=== PATIENT | male | born 1935 | race Caucasian/White ===

== ENCOUNTER → 2019-12-13 09:56 | Outpatient (POV) | payer MEDICARE, SELFPAY | PROVIDERS: Visit Provider Audiologist | DX: Z00.00 Encounter for general adult medical examination without abnormal findings (principal) ==

== ENCOUNTER 2020-05-10 13:07 | Emergency (ER) | payer MEDICARE, SELFPAY ==
[2020-05-10 13:32] VITALS: BP 132/73; PULSE 85; RESP 19; TEMP 36.8; O2SAT 97; BMI 24.1
--- NOTE | 2020-05-10 14:02 | HMH.EDUTC ---
[facility] [place] Clinical Impression: Strep throat, Encounter for laboratory testing for COVID-19 virus Disposition: Home, Self-Care Condition on Discharge: Good Instructions: Sore Throat, DI for Strep Throat, DI for Headache, Preventing the Spread of Coronavirus Discharge Instructions Additional Instructions: *Monitor Temp, Over the counter Motrin or Tylenol as directed/as needed Tylenol every 4 hours and Motrin every 6 hours (as long as your family doctor has told you that you can take it) for fever or pain. and straight to ER if unable to lower temp less than 101.0 after medication given *Warm salt water gargles may help to soothe the throat *Throat Lozenges *Warm fluids like tea with honey may help to soothe the throat *Sleep elevated *Humidifier/Vaporizer Your throat swab was sent for culture. Those results are typically sent to your primary care. Be sure to follow up in 2-3 days with your family doctor/primary care physician if no improvement so they can review those result and treat if necessary. If you don?t have a primary care doctor, I recommend you get one but in the mean time, you will have to return to a walk in clinic Follow up IMMEDIATELY for new or worsening symptoms or no Noticeable improvement over the next 48-72 hours. 911 for difficulty breathing or swallowing You was tested for today for COVID19 your test result should be back tomorrow or Tuesday, you may call back on Tuesday to see if your test results are back and the result You was given a handout with instructions for Self Quarantine and Self isolation for while you wait on test results and what to do if they are positive Prescriptions: Amoxicillin [Amoxicillin 500mg Cap] 500 mg PO BID 10 Days #20 cap Transmission Status: Received by [facility] # Fluticasone Propionate [Flonase 50mcg nasal spray 16gm] 1 spr NS DAILY #1 bottle Transmission Status: Received by [facility] # Referrals: Bk Jarvis [Primary Care Provider] - As needed Time of Disposition: 14:11 Medical Decision Making - Ranjit Inquiry Pt receiving controlled substance: No Ranjit was queried for this patient: No Vital Signs: 05/10/20 13:32 Temperature 98.3 F Temperature Source Oral Pulse Rate [Radial] 85 Respiratory Rate 19 Blood Pressure [Right Arm] 132/73 Blood Pressure Mean [Right Arm] 92 Blood Pressure Source [Right Arm] Automatic Cuff Blood Pressure Position [Right Arm] Sitting 02 Sat by Pulse Oximetry 97 Oxygen Delivery Method Room Air - Lab Data Lab results reviewed: Yes: I reviewed the patient's lab results. Medical Decision Narrative: Patient denies SOA, denies abdominal pain Denies diarrhea since Patient rapid strep positive result discussed treatment and patient advised that he has taken amoxicillin in the past without complications or reactions Patient advised to call back to [facility] for his COVID test results and follow up with PCP if no improvement or immediately to ER if any worsening of symptoms Patient verbalized understanding [facility] [place] - General Stated complaint: fever chills Diarrhea,abd pain,weakness Time Seen by Provider: 05/10/20 14:02 Mode of Arrival: Ambulatory Source of Information: Patient Limitations: No Limitations Description of Symptoms (Recalled from Triage Doc. by RN): BODY ACHES, CHILLS, NAUSEA, AND DIARRHEA SINCE TUESDAY HEENT Symptoms (Recalled from RN notes): No Resp Symptoms (Recalled from RN notes): No Skin Symptoms (Recalled from RN notes): No MS Symptoms (Recalled from RN notes): No Functional Status (Recalled from RN notes): WNL - History of Present Illness Provider Complaint: Patient state that he started feeling bad on when he woke up and had several eppisodes of diarrhea and feeling achy all over States that diarrhea stopped on but ever since he has felt like he may have the flu States that he has been having low grade fever, sore throat, headache and body aches State
[2020-05-10 14:20] VITALS: BP 132/73; PULSE 85; RESP 19; TEMP 36.8; O2SAT 97
[2020-05-10 14:26] LABS: UTC Strep Screen (Rapid) Positive (Negative)
[2020-05-10 14:26] LABS: UTC Influenza A Antigen Negative (Negative); UTC Influenza B Antigen Negative (Negative)
[2020-05-11 08:38] LABS: Covid-19 Nasal PCR Sendout UK Not Detected
== END 2020-05-10 14:21 | disposition home or self-care (01) ==
PROVIDERS: Emergency Provider Nurse Practitioner; PCP Internal Medicine
DX: J02.0 Streptococcal pharyngitis (principal); Z20.828 Contact with and (suspected) exposure to other viral communicable diseases
CPT/HCPCS: G0463; 87804; 87880; 99202; U0003

== ENCOUNTER → 2021-01-22 10:27 | Outpatient (POV) | payer MEDICARE, SELFPAY | PROVIDERS: Visit Provider Audiologist | DX: Z00.00 Encounter for general adult medical examination without abnormal findings (principal) ==

== ENCOUNTER 2024-12-20 09:48 | Outpatient (CLI) | payer MEDICARE, SELFPAY ==
--- NOTE | 2024-12-20 09:51 | XR_ITS ---
FINAL REPORT TECHNIQUE: Chest PA & Lateral CLINICAL HISTORY: SOB COMPARISON: None FINDINGS: 2 views of the chest were performed. The lungs are hyperinflated. Surgical clip is noted in the upper left hemithorax. The heart size is normal. The mediastinum is within normal limits. There is no acute cardiopulmonary process. There are no pleural effusions. There is no pneumothorax. The bony thorax appears intact. IMPRESSION: No acute cardiopulmonary process. Reviewed, Interpreted and Dictated by Dirk Smith MD Transcribed by Alie Crandall Authenticated and [facility]
--- NOTE | 2024-12-20 10:55 | PC.NURSE ---
Pt unable to perform PFT due to unable to follow commands and coughing.
== END 2024-12-20 23:59 | disposition home or self-care (01) ==
LOC: RT 09:49
PROVIDERS: PCP Internal Medicine; Visit Provider Internal Medicine Pulmonary Disease
DX: J44.9 Chronic obstructive pulmonary disease, unspecified (principal); R94.2 Abnormal results of pulmonary function studies
CPT/HCPCS: 71046; 94618

== ENCOUNTER 2025-03-21 16:34 | Inpatient (IN) | payer MEDICARE, SELFPAY ==
[2025-03-21] VITALS (26 sets, daily range): BP systolic 85–123; BP diastolic 38–59; PULSE 62–103; RESP 14–39; TEMP 36.6–37.2; O2SAT 82–97; BMI 20.2
--- NOTE | 2025-03-21 16:44 | ECG_ITS ---
APPROVED REPORT Exam: Resting ECG HR:101 bpm ECG Measurements Heart Rate 101 AXES SC 162 P 75 QRSd 82 QRS 78 QT 317 T 79 QTc 375 Conclusion SINUS TACHYCARDIA WITH FREQUENT VENTRICULAR PREMATURE COMPLEXES ABNORMAL RHYTHM ECG UNCONFIRMED REPORT Sinus tachycardia. No ST elevation or depression. QTc 375 Electronically signed by : OWEN BAZZI, 03/21/2025 21:02:46
--- NOTE | 2025-03-21 16:53 | CT_ITS ---
PROCEDURE INFORMATION: Exam: CTA Chest With Contrast Exam date and time: 03/21/2025 5:45 PM Age: 89 years old Clinical indication: Shortness of breath; Additional info: Short of breath, hypoxic TECHNIQUE: Imaging protocol: Computed tomographic angiography of the chest with contrast. Exam focused on the arteries. 3D rendering (Not supervised by radiologist): MIP and/or 3D reconstructed images were created by the technologist. Radiation optimization: All CT scans at this facility use at least one of these dose optimization techniques: automated exposure control; mA and/or kV adjustment per patient size (includes targeted exams where dose is matched to clinical indication); or iterative reconstruction. Contrast material: ISOVUE; Contrast volume: 80 ml; Contrast route: INTRAVENOUS (IV); COMPARISON: CR XR CHEST 2V 12/20/2024 9:52 AM FINDINGS: Pulmonary arteries: Normal. No pulmonary emboli. Aorta: Extensive atherosclerotic plaquing thoracic aorta with no focal aneurysm or dissection. 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 Lungs: No airway occlusion appreciated. Narrowing of the left main lower lobe pulmonary bronchus. There is advanced pulmonary emphysema with biapical subpleural scarring. There is dense consolidation throughout the left lower lobe with anterior extension to involve the lingula. There are cystic areas throughout the left lower lobe consolidation which may represent previous honeycombing, cavitation, or more likely a combination of the above. The anterior left upper lobe is relatively well-aerated. There is a smaller posterior subpleural area of consolidation within the right lower lobe that is most prominent medially with similar cystic areas. There is an oval 8 x 4 mm subpleural soft tissue nodule anterolaterally within the right middle lobe. There are 2 surgical clips in the posterior left upper lobe. Pleural spaces: There is a small pleural effusion in the posterior costophrenic sulcus. Heart: Normal-sized heart. Fairly advanced three-vessel coronary artery calcification. No pericardial fluid. Lymph nodes: Multiple small AP window lymph nodes measuring up to a short axis diameter of 9 mm. Subcarinal lymph nodes up to a short axis diameter of 9.6 mm. Small hilar lymph nodes that are larger on the left. Bones/joints: Unremarkable. No acute fracture. Soft tissues: There is a subcutaneous 2 cm cyst in the upper back and a left paramedian location that is probably an inclusion cyst. IMPRESSION: 1. No acute pulmonary embolus identified. Somewhat limited evaluation of the smaller left lower lobe pulmonary arteries due to the degree of consolidation. 2. Advanced pulmonary emphysema with a large left lower lobe consolidative pneumonia and smaller right lower lobe consolidated pneumonia. Multiple cystic spaces are present within the areas of consolidation, more so on the left that probably represent a combination of cavitation and possibly underlying honeycombing. Small left pleural effusion noted. Follow-up recommended. 3. Probable reactive mediastinal lymph nodes. The left hilar lymph nodes appear to result in mild narrowing of the left mainstem bronchus. 4. Advanced three-vessel coronary artery calcification. 5. Other findings above.
[2025-03-21] MEDS: ALBUTEROL 0.083% 2.5 MG/3 ML NEB 20 MG IH (17:01)
--- NOTE | 2025-03-21 17:02 | ED_ITS ---
Discharge Plan Disposition Patient Disposition: Admitted Clinical Impressions Clinical Impression: Sepsis, Multifocal pneumonia, MORE (acute kidney injury), Non-ST elevation AK (NSTEMI) Discharge ED Provider: Kevin Goode General Adult HPI General Chief complaint: Shortness of Breath/Dyspnea Stated complaint: Low B/P,weakness,thready pulse,SOA Time Seen by Provider: 03/21/25 16:44 History of Present Illness HPI narrative: Buster Berman is an 89y old male with a history of COPD not on oxygen at baseline, prostatectomy who presents to the emergency department for complaints of shortness of breath and generally feeling unwell. Patient states that over the last 2 days, he has become more short of breath but has been feeling fatigued over the last week. He does report a mild cough. He denies any chest pain, abdominal pain, nausea, vomiting, diarrhea or fever. He does state that he tried at home nebulizer treatments for shortness of breath without improvement of his symptoms. Related Data Previous Rx's ?Medication ?Instructions ?Recorded ipratropium 0.5 mg-albuterol 3 mg 3 ml inhalation Q8H 3 months #540 09/20/24 (2.5 mg base)/3 mL nebulization mL soln nicotine (polacrilex) 2 mg buccal 2 mg buccal Q4H PRN nicotine 09/21/24 lozenge cravings #108 ea Allergies Allergy/AdvReac Type Severity Reaction Status Date / Time No Known Allergies Allergy Verified 03/14/25 14:59 [facility] Disclaimer: The information contained in this section may have been updated after the patient was seen, as this information can be updated by other users. Medical History Dyspnea on exertion Smoking greater than 30 pack years History of primary bladder cancer COPD (chronic obstructive pulmonary disease) Surgical History History of prostatectomy Social History Smoking Status: Current every day smoker alcohol intake: never current occupational status: other Travel in the last 8 weeks?: None housing: house Have you lived/traveled outside [place] in past 30 days?: No Contact w/someone who lives/traveled outside US past 30 days?: No Exposure to someone with infectious disease in past 14 days?: No Do you have a fever (greater than 100.4 F or 38 C)?: No Have you tested positive for COVID-19?: No Exposed to someone with COVID-19 in past 14 days?: No Do you have a sore throat?: No Do you have a cough?: No Do you have any weakness?: No Do you have any diarrhea?: No Are you experiencing any unusual bleeding?: No Do you have any muscle aches/pain?: No Do you have any abdominal pain?: No Are you experiencing loss of taste or smell?: No Other Medical History Have you received the Pneumonia Vaccine: No ROS Obtained: Yes Systems reviewed as appropriate & no additional complaints except as documented Physical Exam General General appearance: alert Comment: ill appearing Head Head exam: atraumatic Eye Eye exam: Present normal appearance ENT ENT exam: Present normal external ear exam Neck Neck exam: Present full ROM Chest Chest inspection: Present symmetric chest wall rise Respiratory Respiratory exam: Present respiratory distress and accessory muscle use; Absent normal lung sounds bilaterally (Diminished breath sounds bilaterally), wheezes or stridor Cardiovascular Cardiovascular exam: Present normal rhythm and tachycardia Abdominal Exam Abdominal exam: Present soft; Absent tenderness or guarding exam: Present deferred Extremities Exam Extremities exam: Present normal inspection Back Exam Back exam: Present normal inspection Neurological Exam Neurological exam: Present alert and oriented X3 Psychiatric Psychiatric exam: Present normal affect Skin Skin exam: Present warm and dry Medical Decision Making Medical Records Screening: Per USPSTF and CDC recommendations, given the prevalence of disease in our region, it is our hospital?s policy to screen for HIV and viral Hepatitis for all patients aged 18 and over and those with ongoing risk factors. Ranjit Inquiry Pt receiving controlled substance: No Vital Signs: 03/21/25 16:55 03/21/25 17:04 03/21/25 17:25 Temperature 97.9 F Temperature Source Oral Pulse Rate 98 H 87 Pulse Rate [Left Radial] 62 Respiratory Rate 30 H 28 H 28 H Blood Pressure 97/52 L 86/53 L Blood Pressure [Right Arm] 88/38 L Blood Pressure Mean Blood Pressure Mean [Right Arm] 54 Blood Pressure Source [Right Arm] 02 Sat by Pulse Oximetry 82 L 92 L 92 L Oxygen Delivery Method Nasal Cannula Non-Rebreather Non-Rebreather Oxygen Flow Rate (LPM) 3 Fraction of Inspired Oxygen 08/28/25 18:01 03/21/25 18:20 03/21/25 18:27 Temperature Temperature Source Pulse Rate 80 Pulse Rate [Left Radial] Respiratory Rate 35 H 33 H Blood Pressure 95/49 L 90/48 L Blood Pressure [Right Arm] Blood Pressure Mean Blood Pressure Mean [Right Arm] Blood Pressure Source [Right Arm] 02 Sat by Pulse Oximetry 89 L 91 L Oxygen Delivery Method Aerosol Mask Venturi Mask Oxygen Flow Rate (LPM) 8 15 Fraction of Inspired Oxygen 50 03/21/25 18:30 03/21/25 18:40 03/21/25 18:50 Temperature Temperature Source Pulse Rate 103 H 96 H 90 Pulse Rate [Left Radial] Respiratory Rate 39 H 28 H 28 H Blood Pressure 100/55 L 107/59 L 120/54 L Blood Pressure [Right Arm] Blood Pressure Mean Blood Pressure Mean [Right Arm] Blood Pressure Source [Right Arm] 02 Sat by Pulse Oximetry 90 L 92 L 92 L Oxygen Delivery Method Non-Rebreather Non-Rebreather Non-Rebreather Oxygen Flow Rate (LPM) Fraction of Inspired Oxygen 03/21/25 19:00 03/21/25 19:00 03/21/25 19:11 Temperature Temperature Source Pulse Rate 102 H 100 H Pulse Rate [Left Radial] 97 H Respiratory Rate 14 26 H 30 H Blood Pressure 109/59 L 85/53 L Blood Pressure [Right Arm] 99/51 L Blood Pressure Mean 75 70 Blood Pressure Mean [Right Arm] 67 Blood Pressure Source [Right Arm] Automatic Cuff 02 Sat by Pulse Oximetry 92 L 89 L 86 L Oxygen Delivery Method Venturi Mask Oxygen Flow Rate (LPM) Fraction of Inspired Oxygen 03/21/25 19:12 03/21/25 19:20 03/21/25 19:30 Temperature Temperature Source Pulse Rate 101 H 97 H 97 H Pulse Rate [Left Radial] Respiratory Rate 28 H 32 H 31 H Blood Pressure 94/52 L 92/53 L 99/51 L Blood Pressure [Right Arm] Blood Pressure Mean 66 66 64 Blood Pressure Mean [Right Arm] Blood Pressure Source [Right Arm] 02 Sat by Pulse Oximetry 92 L 93 L 92 L Oxygen Delivery Method Oxygen Flow Rate (LPM) Fraction of Inspired Oxygen 03/21/25 19:40 Temperature Temperature Source Pulse Rate Pulse Rate [Left Radial] Respiratory Rate Blood Pressure 89/48 L Blood Pressure [Right Arm] Blood Pressure Mean 64 Blood Pressure Mean [Right Arm] Blood Pressure Source [Right Arm] 02 Sat by Pulse Oximetry Oxygen Delivery Method Oxygen Flow Rate (LPM) Fraction of Inspired Oxygen Lab Data Lab Results 03/21/25 16:43: Chlamy pneumoniae PCR Not detected, Adenovirus (PCR) Not detected, B. pertussis DNA (PCR) Not detected, Coronavirus OC43 (PCR) Not detected, Coronavirus HKU1 (PCR) Not detected, Coronavirus 229E (PCR) Not detected, SARS-CoV-2 (PCR) Not detected, Coronavirus NL63 (PCR) Not detected, Human Metapneumovir PCR Not detected, Influenza A (H1) PCR Not detected, Influ A (H1N1/09) PCR Not detected, Influenza A (H3) PCR Not detected, Influenza Type A (PCR) Not detected, Influenza Type B (PCR) Not detected, M. pneumoniae (PCR) Not detected, Parainfluenza 1 (PCR) Not detected, Parainfluenza 2 (PCR) Not detected, Parainfluenza 3 (PCR) Not detected, Parainfluenza 4 (PCR) Not detected, RSV (PCR) Not detected, Entero/Rhino (PCR) Not detected 03/21/25 16:50: WBC 13.2 H, RBC 4.72, Hgb 14.9, Hct 46.0, MCV 97.5 H, MCH 31.6 H , MCHC 32.4, RDW 13.5, Plt Count 217, MPV 10.0, Neut % (Auto) 91.0 H, Lymph % (Auto) 5.0 L, Colbert % (Auto) 1.6 L, Eos % (Auto) 0.5, Baso % (Auto) 0.6, Neut # (Auto) 12.1 H, Lymph # (Auto) 0.7, Colbert # (Auto) 0.2, Eos # (Auto) 0.1, Baso # (Auto) 0.1, Sodium 137, Potassium 3.9, Chloride 105, Carbon Dioxide 18 L, Anion Gap 17.9 H, BUN 39 H, Creatinine 3.00 H, Estimated Creat Clear 15, Estimated GFR 20 L, Est GFR ( Amer) 24 L, Glucose 115 H, Calcium 8.5, Total Bilirubin 2.3 H 03/21/25 16:50: Total Bilirubin 2.2 H, Direct Bilirubin 0.4, Conjugated Bilirubin 0.0, Indirect Bilirubin 1.8 H, Unconjugated Bilirubin 1.8 H, AST 55, ALT 29, Alkaline Phosphatase 81, Troponin I 0.08 H, C-Reactive Protein 307.4 H, NT-Pro-B Natriuret Pep 7180 H, Total Protein 6.9, Albumin 3.6, Globulin 3.3 H, Albumin/Globulin Ratio 1.1, Procalcitonin 36.4 H 03/21/25 16:53: VBG pH 7.30 L, VBG pCO2 38.8, VBG pO2 21.7 L, VBG HCO3 18.7 L, V BG Total CO2 19.9 L, VBG O2 Saturation 31.9 L, VBG Base Excess -7.7 L, VBG Lactic Acid 7.6 H 03/21/25 16:50 03/21/25 16:50 Orders (Tests/Meds): ED MEDICATIONS Generic Name Dose Route Start Last Admin Trade Name Freq PRN Reason Stop Dose Admin Acetaminophen 650 mg 03/21/25 19:16 Acetaminophen 325mg Tab PO 04/20/25 19:15 Q4HP PRN Fever or Mild Pain (1-3) Hydrocodone Bitart/Acetaminophen 1 tab 03/21/25 19:16 Hydrocodone/Apap 5/325 Mg Tablet PO 04/20/25 19:15 Q4HP PRN Mild to Moderate Pain (1-6) Albuterol/Ipratropium 3 ml 03/22/25 00:00 Ipratropium/Albuterol 3 Ml Neb IH 04/21/25 00:00 Q6RT ARACELY Azithromycin 500 mg 03/21/25 19:10 Azithromycin 250mg Tablet PO 03/21/25 19:11 ONCE ONE Azithromycin 250 mg 03/22/25 09:00 Azithromycin 250mg Tablet PO 04/01/25 08:59 DAILY ARACELY Guaifenesin 600 mg 03/21/25 21:00 Guaifenesin 600 Mg Tab.Er.12h PO 04/20/25 20:59 BID ARACELY Heparin Sodium (Porcine) 5,000 unit 03/21/25 21:00 Heparin Sodium 5,000 Unit/Ml Vial SUBCUT 04/20/25 20:59 TID [facility] Norepinephrine/Dextrose 8 mg in 250 mls @ 15 mls/hr 03/21/25 17:37 03/21/25 18:42 Levophed 8mg/250ml-D5w Premix IV 04/20/25 17:36 6 mcg/min .[id number] ARACELY 11.25 mls/hr Protocol Titration 8 MCG/MIN Ceftriaxone Sodium 1 gm/ 50 mls @ 100 mls/hr 03/22/25 09:00 Sodium Chloride IV 04/01/25 08:59 Q24H ARACELY Sodium Chloride 1,000 mls @ 100 mls/hr 03/21/25 19:30 Sod Chlor 0.9% 1000ml Bag IV 04/20/25 19:29 .Q10H ARACELY Methylprednisolone Sodium Succinate 125 mg 03/21/25 19:10 Methylprednisolone Sod Succ 125mg Vial IV 03/21/25 19:11 ONCE ONE Methylprednisolone Sodium Succinate 40 mg 03/21/25 21:00 Methylprednisolone Sod Succ 40mg Vial IV 04/20/25 20:59 BID [facility] Miscellaneous 1 each 03/21/25 17:15 03/21/25 18:09 Vancomycin Consult Request NOTAPPLIC 04/20/25 17:14 1 each CONSULT PHARMACY [facility] Administration Nicotine 21 mg 03/21/25 19:16 Nicotine 21mg/24hr Patch TD 04/20/25 19:15 DAILYP PRN Nicotine Cravings Ondansetron HCl 4 mg 03/21/25 19:16 Ondansetron 4mg/2ml Vial IV 04/20/25 19:15 Q8HP PRN Nausea Sodium Chloride 3 ml 03/21/25 19:10 Sodium Chloride 3% 15ml [facility] 04/20/25 19:09 ONCE PRN INDUCE [employer] Discontinued Medications Generic Name Dose Route Start Last Admin Trade Name Freq PRN Reason Stop Dose Admin Albuterol Sulfate 20 mg 03/21/25 16:59 03/21/25 17:01 Albuterol 0.083% 2.5 Mg/3 Ml Neb 03/21/25 17:00 20 mg ONCE ONE Administration Vancomycin HCl 1,000 mg/ 250 mls @ 125 mls/hr 03/21/25 17:15 03/21/25 18:06 Sodium Chloride IV 03/21/25 19:14 125 mls/hr ONCE ONE Administration Sodium Chloride 1,960 mls @ 980 mls/hr 03/21/25 17:14 03/21/25 18:05 Sod Chlor 0.9% 1000ml Bag 30 ml/kg infuse over 2 hr (1960 ml) 03/21/25 19:13 Infused IV Infusion .Q2H ONE Piperacillin Sod/Tazobactam 100 mls @ 200 mls/hr 03/21/25 17:14 03/21/25 17:30 Sod 4.5 gm/ Sodium Chloride IV 03/21/25 17:43 Infused ONCE ONE Infusion Iopamidol 80 ml 03/21/25 17:44 03/21/25 17:45 Iopamidol-370 (76%);100ml Bottle IV 03/21/25 17:45 80 ml ONCE ONE Administration Sodium Chloride 10 ml 03/21/25 17:44 03/21/25 17:45 Sodium Chloride 0.9% 10ml Syr (Rad Only) IV 03/21/25 17:45 10 ml ONCE ONE Administration Sodium Chloride 50 ml 03/21/25 17:44 03/21/25 17:45 0.9 % Sodium Chloride 50 Ml Vial IV 03/21/25 17:45 50 ml ONCE ONE Administration ORDERS Category Date Time Status CT abdomen pelvis w con Stat Cat Scan 03/21/25 17:[address] angio chest PE protocol Stat Cat Scan 03/21/25 16:53 Completed CA echo definity Routine Exams 03/22/25 09:00 Ordered POCUS Point of Care (ER Only) Stat Exams 03/21/25 16:44 Completed BNP [NT Pro Brain Natriuretic Pep.] Stat Lab 03/21/25 16:50 Completed Bilirubin Group (Ind,Dir,Tot) Routine Lab 03/21/25 16:50 Completed CBC w/Auto Diff [Complete Blood Count Auto Diff] Stat Lab 03/21/25 16:50 Completed CMP [Comprehensive Metabolic Panel] Stat Lab 03/21/25 16:50 Completed CRP [C-Reactive Protein] Stat Lab 03/21/25 16:50 Completed Complete Blood Count Auto Diff AMLAB Lab 03/22/25 06:00 Ordered Complete Blood Count Auto Diff AMLAB Lab 03/23/25 06:00 Ordered Complete Blood Count Auto Diff AMLAB Lab 03/24/25 06:00 Ordered Complete Blood Count Auto Diff AMLAB Lab 03/25/25 06:00 Ordered Complete Blood Count Auto Diff AMLAB Lab 03/26/25 06:00 Ordered Complete Blood Count Auto Diff AMLAB Lab 03/27/25 06:00 Ordered Complete Blood Count Auto Diff AMLAB Lab 03/28/25 06:00 Ordered Complete Blood Count Auto Diff AMLAB Lab 03/29/25 06:00 Ordered Complete Blood Count Auto Diff AMLAB Lab 03/30/25 06:00 Ordered Complete Blood Count Auto Diff AMLAB Lab 03/31/25 06:00 Ordered Comprehensive Metabolic Panel AMLAB Lab 03/22/25 06:00 Ordered Comprehensive Metabolic Panel AMLAB Lab 03/23/25 06:00 Ordered Comprehensive Metabolic Panel AMLAB Lab 03/24/25 06:00 Ordered Comprehensive Metabolic Panel AMLAB Lab 03/25/25 06:00 Ordered Comprehensive Metabolic Panel AMLAB Lab 03/26/25 06:00 Ordered Comprehensive Metabolic Panel AMLAB Lab 03/27/25 06:00 Ordered Comprehensive Metabolic Panel AMLAB Lab 03/28/25 06:00 Ordered Comprehensive Metabolic Panel AMLAB Lab 03/29/25 06:00 Ordered Comprehensive Metabolic Panel AMLAB Lab 03/30/25 06:00 Ordered Comprehensive Metabolic Panel AMLAB Lab 03/31/25 06:00 Ordered Creatinine,Urine Random Stat Lab 03/21/25 19:10 Ordered Full Resp Panel w/COVID ([facility]) Routine Lab 03/21/25 16:43 Completed Lactic Acid AMLAB Lab 03/22/25 06:00 Ordered Procalcitonin Routine Lab 03/22/25 06:00 Ordered Procalcitonin Stat Lab 03/21/25 16:50 Completed Sodium,Urine Random Routine Lab 03/21/25 19:10 Ordered Troponin I Q3H Lab 03/21/25 20:00 Ordered Troponin I Q3H Lab 03/21/25 23:00 Ordered Troponin I Q6H Lab 03/21/25 22:30 Ordered Troponin I Q6H Lab 03/22/25 04:30 Ordered Troponin I Stat Lab 03/21/25 16:50 Completed UA [Urinalysis and Microscopic] Stat Lab 03/21/25 17:30 Ordered Urea Nitrogen, 24-Hour Urine Routine Lab 03/21/25 19:10 Ordered Urea Nitrogen,Urine Random Routine Lab 03/21/25 19:10 Ordered Blood Culture Stat Micro 03/21/25 16:56 Received Sputum Culture & Gram Stain Stat Micro 03/21/25 19:10 Ordered VBG [Venous Blood Gas] Stat RT 03/21/25 16:53 Completed Renal US [US Kidney] Routine Ultrasound 03/22/25 09:00 Ordered ECG Data Tracing #1: I reviewed this ECG and interpreted as documented below: Sinus tachycardia. No ST elevation or depression. QTc of 375. PVC noted. Medical Decision Narrative: Buster Berman is an 89y old male with a history of COPD not on oxygen at baseline, prostatectomy who presents to the emergency department for complaints of shortness of breath and generally feeling unwell. Patient states that over the last 2 days, he has become more short of breath but has been feeling fatigued over the last week. He does report a mild cough. He denies any chest pain, abdominal pain, nausea, vomiting, diarrhea or fever. He does state that he tried at home nebulizer treatments for shortness of breath without improvement of his symptoms. On arrival, patient is hypotensive with systolic blood pressures in the 80s, tachypneic, heart rate within normal limits, afebrile, initial oxygen saturation 82% on room air was put on 3 L nasal cannula. Patient's oxygen saturation, evaluation had improved to 93%. On physical exam, patient does appear short of breath. Diminished breath sounds bilaterally. Active cough. He speaking in mildly shortened sentences. Does not have any significant wheezing. Abdomen soft, nontender nondistended. He does not appear volume overloaded. Patient was started on a continuous DuoNeb treatment. [id number] cardiac and lung ultrasounds performed. Normal left ventricular ejection fraction, no pericardial fluid. Lung sliding present bilaterally. Patient has have some B-lines in the right lower anterior chest wall concerning for pulmonary edema versus pneumonia. Differential diagnosis includes, but is not limited to: Sepsis, pneumonia, COPD exacerbation, CHF, ACS, pericarditis, Viral respiratory illness, among others. The most morbid conditions were considered and workup was based on these. Workup in the emergency department included: Blood culture x 2, full respiratory panel, UA, troponin, procalcitonin, BNP, CMP, CBC with differential, CRP, EKG, VBG with lactate, EKG. patient was also administered sepsis bolus fluids as well as started on broad-spectrum antibiotics, vancomycin and Zosyn. Patient's workup shows a leukocytosis with white blood cell count of 13.2 with left shift. No anemia. Platelets within normal limits. VBG shows metabolic acidosis with pH of 7.30, lactate significantly elevated 7.6, bicarb low at 18.7 and pCO2 normal at 38.8. Patient does have an MORE with creatinine of 3 and a BUN of 39 (could be prerenal in nature), anion gap elevated at 17.9 likely secondary to elevated lactate. Patient's GFR is low at 20, however it is felt that benefits of obtaining contrasted CT imaging outweighs the potential risks given severity of patient's illness. Patient already receiving IV fluids but will proceed with CT imaging at this time. Initial troponin of 0.08, CRP significantly elevated at 307, BNP is elevated at 7180, likely representing a type II NSTEMI in the setting of unremarkable EKG. Patient was started on empiric antibiotics, IV vancomycin and Zosyn. Patient's procalcitonin was also significantly elevated. EKG shows sinus tachycardia. No ST elevation or depression. QTc of 375. PVC noted. CT imaging was interpreted by me personally. No evidence of pulmonary embolism. Patient does have bilateral groundglass opacities concerning for multifocal pneumonia. CT abdomen pelvis with cystic structures within the liver but no acute pathology. See final radiology report for details. Patient continued to be hypotensive despite sepsis bolus fluids and was started on Levophed IV drip for MAP goals of 65 or greater. On reassessment, patient reports objective improvement in his symptoms but still has a cough. I discussed with him and family that he has pneumonia as well as MORE and sepsis and will require continued IV antibiotics and treatment of his low blood pressure. They were in agreement to pursue this at this time. He and family did note that he is a DNR and a DO NOT INTUBATE. I discussed patient's case with Dr. Valentino with the hospital medicine service who agreed to admit the patient to the ICU for further management. Critical Care Critical Care Time Critical Care Time: Yes Attestation: On 03/21/25, the high probability of a clinically significant, sudden or life threatening deterioration of the following system(s) required my full and direct attention, intervention and personal management. The time I documented below is in addition to time spent performing reported procedures but includes the following listed in this critical care notation. Total Time Total Critical Care Time: 35
[2025-03-21 17:04] LABS: Hematocrit 46.0 % (42.0-52.0); Hemoglobin 14.9 g/dL (14.1-18.0); Immature Granulocytes % 1.3 %; Mean Corpuscular HGB Conc 32.4 g/dL (31.8-35.4); Mean Corpuscular Hemoglobin 31.6 pg (27.0-31.2); Mean Corpuscular Volume 97.5 fl (80-94); Nucleated Red Blood Cells % 0.3 %; Platelet Count 217 K/mm3 (142-424); Red Blood Count 4.72 M/mm3 (4.60-6.20); Red Cell Distribution Width-SD 49.1 fL; White Blood Count 13.2 K/mm3 (4.8-10.8)
[2025-03-21 17:08] LABS: VBG HCO3 18.7 mmol/L (23-30); VBG PCO2 38.8 mmol/L (35-51); VBG PH 7.30 mmol/L (7.31-7.41); VBG PO2 21.7 mmol/L (28-40)
[2025-03-21 17:09] LABS: Lactate Venous 7.6 mmol/L (0.4-2.0)
[2025-03-21 17:12] LABS: Albumin Level 3.6 g/dl (3.5-5.0); Chloride 105 mmol/L (98-107); Potassium 3.9 mmoL/L (3.5-5.1); Sodium 137 mmol/L (136-145)
[2025-03-21 17:14] LABS: Adenovirus,PCR Not Detected (NotDetected); Chlamydophila Pneumoniae, PCR Not Detected (NotDetected); Coronavirus 19, PCR Not Detected (NotDetected); Coronovirus HKU1,PCR Not Detected (NotDetected); Influenza A, PCR Not Detected (NotDetected); Influenza AH1, 2009 Not Detected (NotDetected); Influenza AH1, PCR Not Detected (NotDetected); Influenza AH3,PCR Not Detected (NotDetected); Influenza B, PCR Not Detected (NotDetected); Mycoplasma Pneumoniae, PCR Not Detected (NotDetected); Parainfluenza 1, PCR Not Detected (NotDetected); Parainfluenza 2, PCR Not Detected (NotDetected); Parainfluenza 3, PCR Not Detected (NotDetected); Parainfluenza 4, PCR Not Detected (NotDetected)
[2025-03-21 17:14] LABS: Blood Urea Nitrogen 39 mg/dl (9-20); Creatinine Clearance Estimated 15 mL/min (50-200); Creatinine,Serum 3.00 mg/dl (0.66-1.25); Estimated Glomerular Filt Rate 20 ml/min (>60); GFR (African American) 24 ML/MIN (>60)
[2025-03-21 17:15] LABS: Alanine Aminotransferase 29 U/L (12-78); Albumin/Globulin Ratio 1.1 (1.1-1.8); Alkaline Phosphatase 81 U/L (38-126); Anion Gap 17.9 mEq/L (5-15); Aspartate Amino Transferase 55 U/L (17-59); Bilirubin,Total 2.3 mg/dl (0.2-1.3); Calcium 8.5 mg/dl (8.4-10.2); Carbon Dioxide 18 mmol/L (22.0-30.0); Globulin 3.3 g/dL (1.3-3.2); Glucose 115 mg/dl (74-100); Total Protein,Serum 6.9 g/dl (6.3-8.2)
[2025-03-21] MEDS: PIPERACILLIN/TAZO 4.5 GM in 0.9 % SODIUM CHLORIDE 100 ML IV (17:16)
[2025-03-21] MEDS: SODIUM CHLORIDE 980 ML IV (17:18)
[2025-03-21 17:20] LABS: C-Reactive Protein 307.4 mg/L (0-4)
[2025-03-21 17:25] LABS: NT Pro Brain Natriuretic Pep. 7180 pg/mL (0-450)
--- NOTE | 2025-03-21 17:25 | CT_ITS ---
PROCEDURE INFORMATION: Exam: CT Abdomen And Pelvis With Contrast Exam date and time: 03/21/2025 5:45 PM Age: 89 years old Clinical indication: Other: Sepsis, elevated bilirubin TECHNIQUE: Imaging protocol: Computed tomography of the abdomen and pelvis with contrast. 3D rendering (Not supervised by radiologist): MIP and/or 3D reconstructed images were created by the technologist. Radiation optimization: All CT scans at this facility use at least one of these dose optimization techniques: automated exposure control; mA and/or kV adjustment per patient size (includes targeted exams where dose is matched to clinical indication); or iterative reconstruction. Contrast material: ISOVUE; Contrast volume: 80 ml; Contrast route: IV; COMPARISON: CR XR CHEST 2V 12/20/2024 9:52 AM FINDINGS: Lungs: Pulmonary emphysema within the lung bases with posterior honeycombing. Large area of superimposed consolidation and pneumonia within the posterior left lower lobe. Smaller area of consolidation and pneumonia in the medial posterior right lower lobe. Small left pleural effusion in the posterior costophrenic sulcus. Liver: Multiple hepatic cysts, the largest of which measures approximately 3 cm within the left lobe of the liver. Small 6.5 mm focal area of enhancement within the lower right lobe of the liver that is probably a small hemangioma. No follow-up of the hepatic nodules or enhancement is recommended. Gallbladder and biliary ducts: Distended gallbladder. No calcified gallstones, gallbladder wall thickening or surrounding fluid or enhancement is appreciated. Normal caliber common duct. Pancreas: Normal. No ductal dilation. Spleen: Normal-size spleen with multiple calcified granulomata. Adrenal glands: Normal. No mass. Kidneys and ureters: The kidneys are of normal-size. The kidneys symmetrically enhance. There is a 1.9 cm low-attenuation mass at the posterior cortex of the left kidney with Hounsfield unit measurements of less than 20 consistent with a cyst. No follow-up is required. There is no hydronephrosis of the kidneys. No perinephric stranding. Stomach and bowel: No gastric distension or wall abnormality appreciated. Mild degree of gastric wall enhancement. No small bowel dilatation identified. Very mild small bowel wall enhancement. There is a small bowel anastomosis with surgical clips within the anterior pelvis that is likely related to the previous urinary diversion. The colon is primarily decompressed and shows extensive diverticulosis. There is no acute diverticulitis appreciated. Appendix: Normal retrocecal appendix in the right pelvis. Intraperitoneal space: Unremarkable. No free air. No significant fluid collection. Vasculature: Advanced mixed atherosclerotic plaquing abdominal aorta with mild enlargement. No focal aneurysm is appreciated. Severe at least 80% stenosis at the origin of the superior mesenteric artery. Extensive at least moderate atherosclerotic calcification involving the iliac and proximal femoral arteries. Right-sided coronary artery calcification noted. Lymph nodes: Unremarkable. No enlarged lymph nodes. Urinary bladder: There has been a previous cystectomy. There is a right lower quadrant ileal conduit/ostomy that appears to be unobstructed. There is no wall thickening of the neobladder appreciated. Reproductive: The prostate is absent. Bones/joints: Unremarkable. No acute fracture. Soft tissues: Small fat containing left para umbilical hernia. No obstructive hernia appreciated. IMPRESSION: 1. Pulmonary emphysema with severe left lower lobe pneumonia and a small left pleural effusion. Smaller area of consolidation and pneumonia medial right lower lobe. 2. Fairly marked gallbladder distension with no gallbladder wall thickening, calcified gallstones or surrounding fluid or enhancement. Normal common duct. No definite evidence of acute inflammation. A follow-up gallbladder ultrasound and/or hepatobiliary scan would be useful in further evaluation. 3. Previous cystectomy and prostatectomy. Functional appearing ileal conduit. 4. Severe proximal superior mesenteric artery stenosis. 5. Very mild mucosal enhancement of the stomach and a few loops of small bowel. A very mild degree of gastritis and/or enteritis could not be completely excluded. 6. Other findings above. COMMENTS: Consistent with the [employer]'s Incidental Findings Committee white paper (J Am Ryann Radiol 2018): Any incidental renal lesion less than 1 cm or classified as too small to characterize, or any incidental cystic renal lesion characterized as simple-appearing, is likely benign. No follow-up imaging is recommended for these lesions per consensus recommendations based on imaging criteria.
[2025-03-21 17:27] LABS: Troponin I 0.08 ng/ml (0.00-0.034)
[2025-03-21 17:32] LABS: Procalcitonin 36.4 ng/mL (0.0-2.0)
[2025-03-21] MEDS: 0.9 % SODIUM CHLORIDE 50 ML VIAL IV (17:45)
[2025-03-21] MEDS: IOPAMIDOL-370 (76%);100ML BOTTLE 80 ML IV (17:45)
[2025-03-21] MEDS: SODIUM CHLORIDE 0.9% 10ML SYR (RAD ONLY) 10 ML IV (17:45)
[2025-03-21] MEDS: VANCOMYCIN HCL 1,000 MG in 0.9 % SODIUM CHLORIDE 250 ML 125 MG IV (18:06)
[2025-03-21] MEDS: NOREPINEPHRINE BITARTRATE/D5W 8 MG/250 ML PLAST..BAG 15 MG IV (18:07)
[2025-03-21] MEDS: VANCOMYCIN CONSULT REQUEST 1 EACH NOTAPPLIC (18:09)
[2025-03-21 19:33] LABS: Bilirubin,Unconjugated 1.8 mg/dL (0.0-1.1)
[2025-03-21 19:34] LABS: Bilirubin,Direct 0.4 mg/dl (0.0-0.4); Bilirubin,Indirect 1.8 mg/dL (0.0-0.9); Bilirubin,Total 2.2 mg/dl (0.2-1.3)
--- NOTE | 2025-03-21 19:42 | P.HP_ITS ---
<Statement entered by Dane Valentino MD - 03/23/25 15:09> Personally evaluated patient and agree with plan of care as outlined by the [facility]. History of Present Illness *Admission Date: 03/21/25 *Reason for visit:: Shortness of breath *History of present illness: This is an 89-year-old male who has a past medical history significant fo for bladder cancer and COPD who presents with a chief complaint of shortness of breath. Due to patient's symptoms, he presented to the emergency room for evaluation. While in the emergency room, CT scan of the chest revealed no acute pulmonary emboli, advanced pulmonary emphysema with a large left lower lobe consolidative pneumonia and small right lower lobe consolidated pneumonia with the possibility of a cavitation, probable reactive mediastinal lymph nodes, and advanced three-vessel coronary artery calcification. Patient was hypotensive, hypoxemic, and tachycardic while in the emergency room. He was given crystalloids and his blood pressure did not improve; however, his hypoxemia persisted and required nonrebreather. As a result, hospital medicine was consulted for further management. Patient is normally not oxygen dependent. During my evaluation of the patient, patient states he has not felt well for approximately 1 week. He reports progressive shortness of air and not feeling well over the past 2 days. Over the past 2 days he started to experience a mild nonproductive cough. Patient reports that he did use his home nebulizer and it did not provide him any relief. Daughter at the bedside states that he was in contact with his son who was ill and he was at a birthday libertarian where a young lady had a sinus infection. Patient has known bladder cancer and has had his bladder removed with an ostomy placed approximately 11 years ago. He does report having some wheezing at home. Currently he is denying any chest pain, lightheadedness, dizziness, fever, chills, rigors, nausea, vomiting, or diarrhea. Additional pertinent vitals obtained include a white blood cell count of 13.2, neutrophils 91%, pH 7.30, bicarb of 18.7, carbon oxide of 18, BUN of 39, creatinine of 3, GFR of 20, blood glucose 115, total bilirubin 2.2, troponin 0.08, C-reactive protein 307.4, BNP of 7180, and procalcitonin of 36.4. [facility] Disclaimer: The information contained in this section may have been updated after the patient was seen, as this information can be updated by other users. Medical History Dyspnea on exertion Smoking greater than 30 pack years History of primary bladder cancer COPD (chronic obstructive pulmonary disease) Surgical History History of prostatectomy Family History (Updated 03/21/25 @ 20:51 by Lesli Pettit RN) Other No significant family history Social History Smoking Status: Current every day smoker alcohol intake: never current occupational status: other Travel in the last 8 weeks?: None housing: house Have you lived/traveled outside [place] in past 30 days?: No Contact w/someone who lives/traveled outside US past 30 days?: No Exposure to someone with infectious disease in past 14 days?: No Do you have a fever (greater than 100.4 F or 38 C)?: No Have you tested positive for COVID-19?: No Exposed to someone with COVID-19 in past 14 days?: No Do you have a sore throat?: No Do you have a cough?: No Do you have any weakness?: No Do you have any diarrhea?: No Are you experiencing any unusual bleeding?: No Do you have any muscle aches/pain?: No Do you have any abdominal pain?: No Are you experiencing loss of taste or smell?: No Other Medical History Have you received the Pneumonia Vaccine: No Review of Systems Review of Systems Review of systems:: pertinent systems reviewed and negative unless documented below Constitutional Constitutional: Reports fatigue and Reports weakness Eyes Eyes: Reports system reviewed and no additional complaints, except as documented ENT Ears, Nose, Mouth, and Throat: Reports system reviewed and no additional complaints, except as documented *Cardiovascular Cardiovascular: Reports system reviewed and no additional complaints, except as documented, Reports dyspnea and Reports dyspnea on exertion *Respiratory Respiratory: Reports cough, Reports dyspnea and Reports dyspnea on exertion *Gastrointestinal Gastrointestinal: Reports system reviewed and no additional complaints, except as documented *Genitourinary Genitourinary: Reports other Comments: Urinary diversion device due to bladder cancer *Musculoskeletal Musculoskeletal: Reports system reviewed and no additional complaints, except as documented Integumentary/Breasts Skin/Breast: Reports system reviewed and no additional complaints, except as documented *Neurologic Neurologic: Reports weakness Psychiatric Psychiatric: Reports system reviewed and no additional complaints, except as documented Endocrine Endocrine: Reports fatigue Hematologic/Lymphatic Hematologic/Lymphatic: Reports system reviewed and no additional complaints, except as documented Allergic/Immunologic Allergic/Immunologic: Reports system reviewed and no additional complaints, except as documented Meds Home Medications and Allergies Home Medications ?Medication ?Instructions ?Recorded ?Confirmed ?Type ipratropium 0.5 mg-albuterol 3 mg 3 ml inhalation Q8H 3 months #540 09/20/24 03/14/25 Rx (2.5 mg base)/3 mL nebulization mL soln nicotine (polacrilex) 2 mg buccal 2 mg buccal Q4H PRN nicotine 09/21/24 03/14/25 Rx lozenge cravings #108 ea New Prescriptions to Start Prescriptions: Allergies Allergy/AdvReac Type Severity Reaction Status Date / Time No Known Allergies Allergy Verified 03/14/25 14:59 Exam Data for Last 24 hours Vital signs and Labs for Last 24 Hours: Temp Pulse Resp BP Pulse Ox O2 Del Method O2 Flow Rate 97.9 F 97 H 14 99/51 L 92 L Venturi Mask 15 03/21/25 16:55 03/21/25 19:00 03/21/25 19:00 03/21/25 19:00 03/21/25 19:00 03/21/25 19:00 03/21/25 18:27 FiO2 50 03/21/25 18:27 Laboratory Results - last 24 hr 03/21/25 16:43: Chlamy pneumoniae PCR Not detected, Adenovirus (PCR) Not detected, B. pertussis DNA (PCR) Not detected, Coronavirus OC43 (PCR) Not detected, Coronavirus HKU1 (PCR) Not detected, Coronavirus 229E (PCR) Not detected, SARS-CoV-2 (PCR) Not detected, Coronavirus NL63 (PCR) Not detected, Human Metapneumovir PCR Not detected, Influenza A (H1) PCR Not detected, Influ A (H1N1/09) PCR Not detected, Influenza A (H3) PCR Not detected, Influenza Type A (PCR) Not detected, Influenza Type B (PCR) Not detected, M. pneumoniae (PCR) Not detected, Parainfluenza 1 (PCR) Not detected, Parainfluenza 2 (PCR) Not detected, Parainfluenza 3 (PCR) Not detected, Parainfluenza 4 (PCR) Not detected, RSV (PCR) Not detected, Entero/Rhino (PCR) Not detected 03/21/25 16:50: WBC 13.2 H, RBC 4.72, Hgb 14.9, Hct 46.0, MCV 97.5 H, MCH 31.6 H , MCHC 32.4, RDW 13.5, Plt Count 217, MPV 10.0, Neut % (Auto) 91.0 H, Lymph % (Auto) 5.0 L, [place] % (Auto) 1.6 L, Eos % (Auto) 0.5, Baso % (Auto) 0.6, Neut # (Auto) 12.1 H, Lymph # (Auto) 0.7, [place] # (Auto) 0.2, Eos # (Auto) 0.1, Baso # (Auto) 0.1, Sodium 137, Potassium 3.9, Chloride 105, Carbon Dioxide 18 L, Anion Gap 17.9 H, BUN 39 H, Creatinine 3.00 H, Estimated Creat Clear 15, Estimated GFR 20 L, Est GFR ( Amer) 24 L, Glucose 115 H, Calcium 8.5, Total Bilirubin 2.3 H 03/21/25 16:50: Total Bilirubin 2.2 H, Direct Bilirubin 0.4, Conjugated Bilirubin 0.0, Indirect Bilirubin 1.8 H, Unconjugated Bilirubin 1.8 H, AST 55, ALT 29, Alkaline Phosphatase 81, Troponin I 0.08 H, C-Reactive Protein 307.4 H, NT-Pro-B Natriuret Pep 7180 H, Total Protein 6.9, Albumin 3.6, Globulin 3.3 H, Albumin/Globulin Ratio 1.1, Procalcitonin 36.4 H 03/21/25 16:53: VBG pH 7.30 L, VBG pCO2 38.8, VBG pO2 21.7 L, VBG HCO3 18.7 L, VBG Total CO2 19.9 L, VBG O2 Saturation 31.9 L, VBG Base Excess -7.7 L, VBG Lactic Acid 7.6 H I & O for Last 24 hours: Intake & Output 03/18/25 03/19/25 03/20/25 03/21/25 23:59 23:59 23:59 23:59 Intake Total / Balance / Weight 65.317 kg Constitutional Constitutional: mild distress and thin *Routine HEENT Exam Head: Present normocephalic and atraumatic Eye: Present EOMI and PERRL ENT: Present mucous membranes moist and mucous membranes dry *Routine Neck Exam Neck: Present supple, full ROM and trachea midline *Routine Respiratory Exam Respiratory: Present respiratory distress, rhonchi, wheezes, diminished air movement, able to speak in complete sentences and symmetric chest movement *Routine Cardiovascular Exam Cardiovascular: Present RRR, Normal S1, Normal S2 and tachycardia *Routine Abdominal Exam Abdominal: Present soft and normoactive bowel sounds *Routine Rectal Exam Rectal:: deferred *Routine Genitalia Exam Genitalia:: deferred *Routine Extremities Exam Extremities: Present full ROM, pulses intact and normal capillary refill Routine Back/Spine/Pelvis Exam Back/Spine: Present full ROM *Routine Skin Exam Skin: Present intact, dry, urticaria and normal turgor *Routine Neurological Exam Neurological: Present alert, oriented X3, CN II-XII intact, moving all extremities and normal speech Routine Psychiatric Exam Psychiatric: Present normal affect, normal thought process, cooperative, good insight and good judgment H&P: Result Impressions 89-year-old male who is presenting with acute respiratory distress and hypoxemia and elements of sepsis found to require 100% oxygen and was hypo tensive on presentation but responded to crystalloids. Imaging was consistent with bilateral pneumonia Assessment and Plan *Assessment and plan (1) Sepsis: Status: Acute Qualifiers: Acute respiratory failure type: with hypoxia Sepsis acute organ dysfunction status: with acute organ dysfunction Sepsis type: sepsis due to unspecified organism Severe sepsis acute organ dysfunction type: acute respiratory failure Severe sepsis shock status: with septic shock Qualified Code(s): A41.9 - Sepsis, unspecified organism; R65.21 - Severe sepsis with septic shock; J96.01 - Acute respiratory failure with hypoxia Category: Medical Code(s): A41.9 - Sepsis, unspecified organism (2) MORE (acute kidney injury): Status: Acute Category: Medical Code(s): N17.9 - Acute kidney failure, unspecified (3) Multifocal pneumonia: Status: Acute Category: Medical Code(s): J18.8 - Other pneumonia, unspecified organism (4) Leukocytosis: Status: Acute Qualifiers: Leukocytosis type: unspecified Qualified Code(s): D72.829 - Elevated white blood cell count, unspecified Category: Medical Code(s): D72.829 - Elevated white blood cell count, unspecified (5) Metabolic acidosis: Status: Acute Category: Medical Code(s): E87.20 - Acidosis, unspecified (6) Elevated brain natriuretic peptide (BNP) level: Status: Acute Category: Medical Code(s): R79.89 - Other specified abnormal findings of blood chemistry (7) Elevated troponin: Status: Acute Category: Medical Code(s): R79.89 - Other specified abnormal findings of blood chemistry (8) Elevated C-reactive protein (CRP): Status: Acute Category: Medical Code(s): R79.82 - Elevated C-reactive protein (CRP) (9) Hypotension: Status: Acute Qualifiers: Hypotension type: unspecified hypotension type Qualified Code(s): I95.9 - Hypotension, unspecified Category: Medical Code(s): I95.9 - Hypotension, unspecified (10) COPD exacerbation: Status: Acute Category: Medical Code(s): J44.1 - Chronic obstructive pulmonary disease with (acute) exacerbation (11) Acute hypoxic respiratory failure: Status: Acute Category: Medical Code(s): J96.01 - Acute respiratory failure with hypoxia Plan Plan: Sepsis: With multiorgan dysfunction. Patient has respiratory failure and elevation in bilirubin/acute kidney injury Multifocal pneumonia: Most likely bacterial/community-acquired Leukocytosis with left shift Elevated CRP/ESR COPD with exacerbation Acute hypoxic respiratory failure Hypotension: Improved -Patient is currently meeting sepsis criteria - He did receive 30 mL/kg of body weight of IV hydration - Sepsis reperfusion assessment performed - Will continue 1 g Rocephin IV daily - 500 mg of azithromycin p.o. once and then 250 mg p.o. daily - Will obtain sputum for culture - DuoNebs every 6 hours - Give 125 mg of Solu-Medrol now; then 40 mg of Solu-Medrol IV twice daily - Will place patient on high flow nasal cannula RT to titrate to maintain oxygen saturation greater than 92% Acute kidney injury: Most likely prerenal; patient has baseline creatinine is within normal limit - Obtain urine studies to include random urine creatinine, random urine sodium, random urine nitrogen, random urine protein, random, urine protein creatinine ratio -Renal ultrasound - Most likely in the setting of sepsis and hypotension - Will trend patient's creatinine - Will avoid nephrotoxic drugs Elevated BNP -Patient appears hypovolemic in my assessment -Not clear the elevation of patient's BNP may be due to chronic stress on the ventricles Elevated troponin - May be due to demand ischemia versus NSTEMI - Will trend every 6 hours - Will consider retail route supervisor consultation - Will obtain 2D echo Elevated bilirubin -Will fractionate -Currently no evidence of common bile duct obstruction or acute cholecystitis - Most likely in the setting of sepsis Plan: Admit patient to the stepdown unit Vital signs every 2 hours Up to chair twice daily Cardiac diet CBC/CMP daily Repeat venous lactic acid 600 mg of Mucinex p.o. twice daily 5000 units of heparin subcu 3 times daily 5 mg [place] p.o. every 4 hours for moderate pain 21 mg nicotine patch daily 4 mg Zofran IV push every 8 hours pain nausea vomit Blood cultures x 2 DNR I have discussed this case with attending physician Dr. Valentino and I look forward to more input.
--- NOTE | 2025-03-21 20:19 | EXP.SEPSISRE ---
[facility] Tissue Perfusion Eval Sepsis Re-Evaluation Performed: Yes Date Performed: 03/21/25 Time Performed: 20:19
--- NOTE | 2025-03-21 20:38 | PC.NURSE ---
Addendum entered by TISHA Banda 03/22/25 06:57: Patient arrived to ICU unit via stretcher from ED @20:07 Original Note: Patient arrived to ICU unit via stretcher from EMS @20:07
[2025-03-21 20:55] LABS: Reflex Lactic Add Lactic Reflex
[2025-03-21] MEDS: AZITHROMYCIN 250MG TABLET 500 MG PO (21:09)
[2025-03-21] MEDS: METHYLPREDNISOLONE SOD SUCC 125MG VIAL 125 MG IV (21:09)
[2025-03-21 21:10] LABS: Lactic Acid Follow Up (RFLX 1) 5.6 mmol/L (0.7-2.1)
[2025-03-21] MEDS: HEPARIN SODIUM 5,000 UNIT/ML VIAL 5000 UNIT SUBCUT (21:10)
[2025-03-21] MEDS: METHYLPREDNISOLONE SOD SUCC 40MG VIAL 40 MG IV (21:10)
--- NOTE | 2025-03-21 21:10 | PC.NURSE ---
Ronnell Cheng APRN called about patient lactate. its 5.6. he is placing an order for 250 bolus of ns now and then again at midnight.
[2025-03-21] MEDS: 0.9 % SODIUM CHLORIDE 1000ML 1,000 ML 100 ML IV (21:11)
[2025-03-21 21:12] LABS: Microscopic, Urine URINE MICROSCOPIC (MICROSCOPIC)
[2025-03-21 21:15] LABS: Bilirubin,Urine Negative (Negative); Color,Urine YELLOW (Yellow); Glucose,Urine (UA) Negative (Negative); Ketones,Urine Negative (Negative); Leukocyte Esterase,Urine TRACE (Negative); PH,Urine 6.0 (5.0-8.5); Protein,Urine 2+ (Negative); Specific Gravity, Urine 1.015 (1.005-1.030); Urobilinogen,Urine 0.2 EU/dl (0.2)
[2025-03-21] MEDS: guaiFENesin 600 MG TAB.ER.12H PO (21:17)
[2025-03-21 21:20] LABS: Troponin I 0.05 ng/ml (0.00-0.034)
[2025-03-21 21:26] LABS: Amorphous Sediment,Urine 1+ /lpf; Bacteria,Urine 3+ /lpf; RBC,Urine 20-50 #/hpf (0-3); Squamous Epithelial Cell,Urine Occasional #/hpf (0-5); WBC,Urine 20-50 #/hpf (0-3)
[2025-03-21 21:27] LABS: Sodium,Urine Random 55.0 mmol/L (30-90)
[2025-03-21] MEDS: ONDANSETRON 4MG/2ML VIAL 4 MG IV (22:04)
[2025-03-21] MEDS: SODIUM CHLORIDE 0.9% 250ML BAG 250 ML IV ×2 (22:10→23:49)
[2025-03-21 22:55] LABS: Reflex Lactic (2 hrs) Add Lactic Reflex
[2025-03-21 23:28] LABS: Lactic Acid Follow up (RFLX 2) 4.1 mmol/L (0.7-2.1)
[2025-03-21 23:39] LABS: Troponin I 0.04 ng/ml (0.00-0.034)
[2025-03-22] VITALS (71 sets, daily range): BP systolic 84–132; BP diastolic 37–70; PULSE 79–102; RESP 20–39; TEMP 36.5–37.2; O2SAT 88–100; BMI 20.2
--- NOTE | 2025-03-22 | US_ITS ---
FINAL REPORT TECHNIQUE: Sonographic images of the kidneys and retroperitoneum were obtained in the longitudinal and transverse planes. CLINICAL HISTORY: .nellie FINDINGS: The right kidney measures 9.4 cm in kzix-ki-eatu length. No hydronephrosis or mass. There is an echogenic focus in the lower pole which may shadow. A nonobstructing stone is not excluded. Cortical echogenicity and thickness are normal. The left kidney measures 9.0 cm in mvjk-yv-lsab length. No hydronephrosis, solid mass, or stone. There is a 3.1 cm cyst. Cortical echogenicity and thickness are normal. Limited evaluation of the spleen and liver demonstrate no acute abnormality. Incidental note is made of gallstones in the gallbladder. IMPRESSION: Possible right renal stone. Left renal cyst. Gallstones in the gallbladder. Reviewed, Interpreted and Dictated by Mae Gaytan MD Transcribed by Parris Khan Authenticated and [facility]
--- NOTE | 2025-03-22 | CA_ITS ---
APPROVED REPORT EXAM: Comprehensive 2D, Doppler, and color-flow Echocardiogram Certification Technician: Luara Mason RDCS Ht: 5 ft 11 in Wt: 144lbs BSA: 1.83 BP: 105/51 mmHg Indications: ELEVATED TROP TDS/LIMITED IMAGES SECONARY TO COPD M-Mode Dimensions RVDd 1.47 cm (0.9-2.6) LA Diam 3.23 cm (1.9-4.0) LVDd 5.90 cm (3.5-5.7) LVDs 4.08 cm (3.5-5.7) IVSd 0.86 cm (0.6-1.1) PWd 0.68 cm (0.6-1.1) EF (Teich) 57.60% FS 30.80% EDV (Teich) 173.20 mL ESV (Teich) 73.40 mL Left Ventricle The left ventricle is normal size. Left ventricular systolic function is grossly normal. The left ventricular ejection fraction is within the normal range. There is normal left ventricular wall thickness. There is normal LV segmental wall motion in the visualized images, but assessment of regional wall motion is limited due to limited apical views. The left ventricular diastolic function is normal. LVEF is 55%. Right Ventricle The right ventricle is grossly normal in size and function. Atria The left atrium size is normal. The right atrium is not well visualized. There is no color Doppler evidence of interatrial shunt. Aortic Valve The aortic valve is mildly thickened. There is no hemodynamically significant aortic valvular stenosis. No aortic regurgitation is present. Mitral Valve The mitral valve is normal in structure. No evidence of mitral valve stenosis. Mild mitral regurgitation is present. Tricuspid Valve The tricuspid valve leaflets are thin and pliable. Trace tricuspid regurgitation. There is insufficient TR jet to estimate RVSP. Pulmonic Valve The pulmonary valve is not well visualized. Great Vessels The aortic root is normal in size. IVC is normal in size and collapses >50% with inspiration. Pericardium There is no pericardial effusion. Other Information Study Quality: Technically Difficult Conclusion Technically difficult study. Apical views not well visualized due to poor accoustic windows and history of COPD. Grossly, normal biventricular systolic function. No obvious wall motion abnormalities, but regional wall motion difficult to assess in the setting of limited apical views. Mild MR. Electronically signed by : Juhi Martinez MD 03/23/2025 16:37:31
[2025-03-22] MEDS: IPRATROPIUM/ALBUTEROL 3 ML NEB IH ×4 (00:29→18:37)
[2025-03-22] MEDS: SODIUM CHLORIDE 3% 15ML NEB 3 ML IH (00:29)
--- NOTE | 2025-03-22 00:29 | PC.NURSE ---
lactate now 4.1. call placed to Ronnell Cheng APRN continue the bolus at midnight
[2025-03-22 06:12] LABS: Hematocrit 37.5 % (42.0-52.0); Immature Granulocytes % 1.2 %; Mean Corpuscular HGB Conc 32.5 g/dL (31.8-35.4); Mean Corpuscular Hemoglobin 31.3 pg (27.0-31.2); Mean Corpuscular Volume 96.2 fl (80-94); Nucleated Red Blood Cells % 0.2 %; Platelet Count 189 K/mm3 (142-424); Red Blood Count 3.90 M/mm3 (4.60-6.20); Red Cell Distribution Width-SD 48.4 fL; White Blood Count 11.4 K/mm3 (4.8-10.8)
--- NOTE | 2025-03-22 06:15 | PC.NURSE ---
patient getting echo done at this time by respiratory at bedside
[2025-03-22 06:18] LABS: Hemoglobin 12.4 g/dL (14.1-18.0)
[2025-03-22 06:24] LABS: Chloride 115 mmol/L (98-107)
[2025-03-22 06:25] LABS: Albumin Level 2.6 g/dl (3.5-5.0); Potassium 3.8 mmoL/L (3.5-5.1); Sodium 139 mmol/L (136-145)
[2025-03-22 06:27] LABS: Alanine Aminotransferase 17 U/L (12-78); Anion Gap 11.8 mEq/L (5-15); Aspartate Amino Transferase 42 U/L (17-59); Blood Urea Nitrogen 35 mg/dl (9-20); Carbon Dioxide 16 mmol/L (22.0-30.0); Creatinine Clearance Estimated 26 mL/min (50-200); Creatinine,Serum 1.80 mg/dl (0.66-1.25); Estimated Glomerular Filt Rate 36 ml/min (>60); GFR (African American) 43 ML/MIN (>60)
[2025-03-22 06:28] LABS: Albumin/Globulin Ratio 1.0 (1.1-1.8); Alkaline Phosphatase 59 U/L (38-126); Bilirubin,Total 1.3 mg/dl (0.2-1.3); Calcium 7.1 mg/dl (8.4-10.2); Globulin 2.7 g/dL (1.3-3.2); Glucose 106 mg/dl (74-100); Total Protein,Serum 5.3 g/dl (6.3-8.2)
[2025-03-22 06:42] LABS: Procalcitonin 49.0 ng/mL (0.0-2.0)
[2025-03-22] MEDS: 0.9 % SODIUM CHLORIDE 1000ML 1,000 ML 100 ML IV ×2 (06:49→16:47)
[2025-03-22 06:59] LABS: Troponin I 0.03 ng/ml (0.00-0.034)
[2025-03-22 07:18] LABS: Total Cells Counted 100
[2025-03-22 07:19] LABS: RBC Morphology Normal
--- NOTE | 2025-03-22 08:36 | EXP.PHA.CONS ---
Pharmacy Consult Date: 03/22/25 Time: 08:37 Referring provider: DR. HOWELL Reason for Consult:: VANCOMYCIN DOSING Allergies Allergy/AdvReac Type Severity Reaction Status Date / Time No Known Allergies Allergy Verified 03/21/25 22:30 Home Medications ?Medication ?Instructions ?Recorded ?Confirmed ?Type No Known Home Medications 03/22/25 03/22/25 History New Prescriptions to Start Prescriptions: Height: 1.8 m Weight: 65.635 kg Laboratory Results:: Laboratory Results - last 24 hr 03/21/25 16:43: Chlamy pneumoniae PCR Not detected, Adenovirus (PCR) Not detected, B. pertussis DNA (PCR) Not detected, Coronavirus OC43 (PCR) Not detected, Coronavirus HKU1 (PCR) Not detected, Coronavirus 229E (PCR) Not detected, SARS-CoV-2 (PCR) Not detected, Coronavirus NL63 (PCR) Not detected, Human Metapneumovir PCR Not detected, Influenza A (H1) PCR Not detected, Influ A (H1N1/09) PCR Not detected, Influenza A (H3) PCR Not detected, Influenza Type A (PCR) Not detected, Influenza Type B (PCR) Not detected, M. pneumoniae (PCR) Not detected, Parainfluenza 1 (PCR) Not detected, Parainfluenza 2 (PCR) Not detected, Parainfluenza 3 (PCR) Not detected, Parainfluenza 4 (PCR) Not detected, RSV (PCR) Not detected, Entero/Rhino (PCR) Not detected 03/21/25 16:50: WBC 13.2 H, RBC 4.72, Hgb 14.9, Hct 46.0, MCV 97.5 H, MCH 31.6 H, MCHC 32.4, RDW 13.5, Plt Count 217, MPV 10.0, Neut % (Auto) 91.0 H, Lymph % (Auto) 5.0 L, [place] % (Auto) 1.6 L, Eos % (Auto) 0.5, Baso % (Auto) 0.6, Neut # (Auto) 12.1 H, Lymph # (Auto) 0.7, [place] # (Auto) 0.2, Eos # (Auto) 0.1, Baso # (Auto) 0.1, Sodium 137, Potassium 3.9, Chloride 105, Carbon Dioxide 18 L, Anion Gap 17.9 H, BUN 39 H, Creatinine 3.00 H, Estimated Creat Clear 15, Estimated GFR 20 L, Est GFR ( Amer) 24 L, Glucose 115 H, Calcium 8.5, Total Bilirubin 2.3 H 03/21/25 16:50: Total Bilirubin 2.2 H, Direct Bilirubin 0.4, Conjugated Bilirubin 0.0, Indirect Bilirubin 1.8 H, Unconjugated Bilirubin 1.8 H, AST 55, ALT 29, Alkaline Phosphatase 81, Troponin I 0.08 H, C-Reactive Protein 307.4 H, NT-Pro-B Natriuret Pep 7180 H, Total Protein 6.9, Albumin 3.6, Globulin 3.3 H, Albumin/Globulin Ratio 1.1, Procalcitonin 36.4 H 03/21/25 16:53: VBG pH 7.30 L, VBG pCO2 38.8, VBG pO2 21.7 L, VBG HCO3 18.7 L, VBG Total CO2 19.9 L, VBG O2 Saturation 31.9 L, VBG Base Excess -7.7 L, VBG Lactic Acid 7.6 H 03/21/25 20:07: Urine Color Yellow, Urine Appearance Cloudy, Urine pH 6.0, Ur Specific [place] 1.015, Urine Protein 2+ A, Urine Glucose (UA) Negative, Urine Ketones Negative, Urine Blood 3+ A, Urine Nitrate Negative, Urine Bilirubin Negative, Urine Urobilinogen 0.2, Ur Leukocyte Esterase Trace, Urine RBC 20-50, Urine WBC 20-50, Ur Squamous Epith Cells Occasional, Amorphous Sediment 1+, Urine Bacteria 3+, Ur Random Urea Nitrogn 331, Urine Creatinine 70, Urine Sodium 55.0, Urine Total Protein 79.0 H 03/21/25 20:37: Lactate 5.6 H, Troponin I 0.05 H 03/21/25 23:07: Lactate 4.1 H, Troponin I 0.04 H 03/22/25 04:37: WBC 11.4 H, RBC 3.90 L, Hgb 12.4 L D, Hct 37.5 L, MCV 96.2 H, MCH 31.3 H, MCHC 32.5, RDW 13.6, Plt Count 189, MPV 10.8 H, Neut % (Auto) 95.4 H, Lymph % (Auto) 1.9 L, [place] % (Auto) 0.9 L, Eos % (Auto) 0.1, Baso % (Auto) 0.5, Neut # (Auto) 10.8 H, Lymph # (Auto) 0.2 L, [place] # (Auto) 0.1, Eos # (Auto) 0.0, Baso # (Auto) 0.1, Total Counted 100, Neutrophils % (Manual) 95 H, Lymphocytes % (Manual) 3 L, Monocytes % (Manual) 2, Platelet Estimate Normal, RBC Morphology Normal, Sodium 139, Potassium 3.8, Chloride 115 H, Carbon Dioxide 16 L, Anion Gap 11.8, BUN 35 H, Creatinine 1.80 H D, Estimated Creat Clear 26, Estimated GFR 36 L, Est GFR ( Amer) 43 L D, Glucose 106 H, Lactate 2.4 H, Calcium 7.1 L, Total Bilirubin 1.3, AST 42, ALT 17 D, Alkaline Phosphatase 59, Troponin I 0.03, Total Protein 5.3 L, Albumin 2.6 L D, Globulin 2.7, Albumin/Globulin Ratio 1.0 L, Procalcitonin 49.0 H Medical History: Medical History (Updated 03/21/25 @ 19:57 by Adarsh Cheng APRN) Dyspnea on exertion Smoking greater than 30 pack years History of primary bladder cancer COPD (chronic obstructive pulmonary disease) Assessment and Plan Assessment and plan all Dx Assessment and Plan for all problems:: Pharmacokinetic dosing service Objective: Patient: Floor: Age: 89 yo Serum creatinine: 1.8 mg/dL Height: 70.9 Inches Weight (kg): 65 Assessment: IBW (kg): 70.57 Dosing wt(kg): 65 Estimated Creatinine clearance (ml/min): 21.7 CRCL method: Cockcroft and Gault using ibw(default). Drug selected: Vancomycin Loading dose (mg): 0 Vd (liters): 52.0 (factor used: 0.8 L/kg) [place] (hr-1): 0.022 Half life (hrs): 31.51 Recommended dose: 1250 mg Interval: 48 hrs Infusion time (hrs): 2.0 Predicted peak (mcg/mL): 36.1 Predicted trough (mcg/mL): 13.12 Total body weight is being used for vancomycin dosing. Recommendations: PATIENT RECEIVED VANCOMYCIN 1000 MG X1 DOSE OVERNIGHT. RECOMMEND STARTING Vancomycin 1250 mg q 48 hrs ON 03/23/25 AT 1300 with an expected Cpeak of 36.1 mcg/ml and an expected Ctrough of 13.12 mcg/ml ----Vanco only - ignore for aminoglycosides----- CLvanco= 1.14 L/hr AUC 0-24 /JUANCARLOS Data: JUANCARLOS 0.5 mcg/mL: AUC/JUANCARLOS: 1096.5 JUANCARLOS 1.0 mcg/mL: AUC/JUANCARLOS: 548.2 --------- JUANCARLOS 1.5 mcg/mL: AUC/JUANCARLOS: 365.5 JUANCARLOS 2.0 mcg/mL: AUC/JUANCARLOS: 274.1
[2025-03-22] MEDS: VANCOMYCIN CONSULT REQUEST 1 EACH NOTAPPLIC (08:37)
[2025-03-22] MEDS: AZITHROMYCIN 250MG TABLET 250 MG PO (08:56)
[2025-03-22] MEDS: CEFEPIME HCL 2 GM in 0.9 % SODIUM CHLORIDE 100 ML IV (08:56)
[2025-03-22] MEDS: HEPARIN SODIUM 5,000 UNIT/ML VIAL 5000 UNIT SUBCUT ×2 (08:56→13:17)
[2025-03-22] MEDS: guaiFENesin 600 MG TAB.ER.12H PO ×2 (08:56→21:01)
[2025-03-22] MEDS: METHYLPREDNISOLONE SOD SUCC 40MG VIAL 40 MG IV (08:57)
--- NOTE | 2025-03-22 10:33 | PC.NURSE ---
Patient refused to turn and reposition at this time. Will continue to promote repositioning to patient ever two hours.
--- NOTE | 2025-03-22 11:08 | P.CONS_ITS ---
History of Present Illness History of present illness: Ms. Berman is a 89-year-old male greater than [id number] smoking history, COPD presented to the ER with worsening respiratory distress and pulmonary was called for further evaluation and manage. [facility] Disclaimer: The information contained in this section may have been updated after the patient was seen, as this information can be updated by other users. Medical History (Updated 03/22/25 @ 13:09 by Kip Staples MD) Pneumonia Acute and chronic respiratory failure with hypoxia Dyspnea on exertion Smoking greater than 30 pack years History of primary bladder cancer COPD (chronic obstructive pulmonary disease) Surgical History History of prostatectomy Family History (Updated 03/21/25 @ 20:51 by Lesli Pettit RN) Other No significant family history Social History Smoking Status: Current every day smoker alcohol intake: never current occupational status: other Travel in the last 8 weeks?: None housing: house Have you lived/traveled outside US in past 30 days?: No Contact w/someone who lives/traveled outside US past 30 days?: No Exposure to someone with infectious disease in past 14 days?: No Do you have a fever (greater than 100.4 F or 38 C)?: No Have you tested positive for COVID-19?: No Exposed to someone with COVID-19 in past 14 days?: No Do you have a sore throat?: No Do you have a cough?: No Do you have any weakness?: No Do you have any diarrhea?: No Are you experiencing any unusual bleeding?: No Do you have any muscle aches/pain?: No Do you have any abdominal pain?: No Are you experiencing loss of taste or smell?: No Review of Systems Constitutional Constitutional: Reports fatigue and Reports weakness Eyes Eyes: Denies eye discharge, Denies dry eyes, Denies irritation and Denies itchy eyes ENT Ears, Nose, Mouth, and Throat: Denies epistaxis, Denies facial pain, Denies lip swelling and Denies throat swelling *Cardiovascular Cardiovascular: Reports dyspnea and Reports dyspnea on exertion *Respiratory Respiratory: Reports change in phlegm color, Reports chest congestion, Reports cough, Reports dyspnea, Reports dyspnea on exertion, Reports excessive phlegm production, Denies hemoptysis, Reports pain on inspiration and Denies pain with cough *Gastrointestinal Gastrointestinal: Denies abdominal pain, Denies belching and Denies cramping *Musculoskeletal Musculoskeletal: Reports back pain, Reports myalgias and Reports other (No small joint swelling or Pain) *Neurologic Neurologic: Reports weakness Psychiatric Psychiatric: Denies homicidal ideation and Denies suicidal ideation Endocrine Endocrine: Reports fatigue and Denies heat intolerance Hematologic/Lymphatic Hematologic/Lymphatic: Denies easy bleeding and Denies lymphadenopathy Allergic/Immunologic Allergic/Immunologic: Denies itchy eyes, Denies lip swelling and Denies throat swelling Pulmonology Exam Inpatient Vital signs and Labs for Last 24 Hours: Temp Pulse Resp BP Pulse Ox O2 Del Method O2 Flow Rate 98.5 F 96 H 23 99/46 L 97 Vapotherm 20 03/22/25 08:00 03/22/25 11:00 03/22/25 11:00 03/22/25 11:00 03/22/25 11:00 03/22/25 11:00 03/22/25 11:00 FiO2 55 03/22/25 11:00 Laboratory Results - last 24 hr 03/21/25 16:43: Chlamy pneumoniae PCR Not detected, Adenovirus (PCR) Not detected, B. pertussis DNA (PCR) Not detected, Coronavirus OC43 (PCR) Not detected, Coronavirus HKU1 (PCR) Not detected, Coronavirus 229E (PCR) Not detected, SARS-CoV-2 (PCR) Not detected, Coronavirus NL63 (PCR) Not detected, Human Metapneumovir PCR Not detected, Influenza A (H1) PCR Not detected, Influ A (H1N1/09) PCR Not detected, Influenza A (H3) PCR Not detected, Influenza Type A (PCR) Not detected, Influenza Type B (PCR) Not detected, M. pneumoniae (PCR) Not detected, Parainfluenza 1 (PCR) Not detected, Parainfluenza 2 (PCR) Not detected, Parainfluenza 3 (PCR) Not detected, Parainfluenza 4 (PCR) Not detected, RSV (PCR) Not detected, Entero/Rhino (PCR) Not detected 03/21/25 16:50: WBC 13.2 H, RBC 4.72, Hgb 14.9, Hct 46.0, MCV 97.5 H, MCH 31.6 H , MCHC 32.4, RDW 13.5, Plt Count 217, MPV 10.0, Neut % (Auto) 91.0 H, Lymph % (Auto) 5.0 L, [place] % (Auto) 1.6 L, Eos % (Auto) 0.5, Baso % (Auto) 0.6, Neut # (Auto) 12.1 H, Lymph # (Auto) 0.7, [place] # (Auto) 0.2, Eos # (Auto) 0.1, Baso # (Auto) 0.1, Sodium 137, Potassium 3.9, Chloride 105, Carbon Dioxide 18 L, Anion Gap 17.9 H, BUN 39 H, Creatinine 3.00 H, Estimated Creat Clear 15, Estimated GFR 20 L, Est GFR ( Amer) 24 L, Glucose 115 H, Calcium 8.5, Total Bilirubin 2.3 H 03/21/25 16:50: Total Bilirubin 2.2 H, Direct Bilirubin 0.4, Conjugated Bilirubin 0.0, Indirect Bilirubin 1.8 H, Unconjugated Bilirubin 1.8 H, AST 55, ALT 29, Alkaline Phosphatase 81, Troponin I 0.08 H, C-Reactive Protein 307.4 H, NT-Pro-B Natriuret Pep 7180 H, Total Protein 6.9, Albumin 3.6, Globulin 3.3 H, Albumin/Globulin Ratio 1.1, Procalcitonin 36.4 H 03/21/25 16:53: VBG pH 7.30 L, VBG pCO2 38.8, VBG pO2 21.7 L, VBG HCO3 18.7 L, V BG Total CO2 19.9 L, VBG O2 Saturation 31.9 L, VBG Base Excess -7.7 L, VBG Lactic Acid 7.6 H 03/21/25 20:07: Urine Color Yellow, Urine Appearance Cloudy, Urine pH 6.0, Ur Specific [place] 1.015, Urine Protein 2+ A, Urine Glucose (UA) Negative, Urine Ketones Negative, Urine Blood 3+ A, Urine Nitrate Negative, Urine Bilirubin Negative, Urine Urobilinogen 0.2, Ur Leukocyte Esterase Trace, Urine RBC 20-50, Urine WBC 20-50, Ur Squamous Epith Cells Occasional, Amorphous Sediment 1+, Urine Bacteria 3+, Ur Random Urea Nitrogn 331, Urine Creatinine 70, Urine Sodium 55.0, Urine Total Protein 79.0 H 03/21/25 20:37: Lactate 5.6 H, Troponin I 0.05 H 03/21/25 23:07: Lactate 4.1 H, Troponin I 0.04 H 03/22/25 04:37: WBC 11.4 H, RBC 3.90 L, Hgb 12.4 L D, Hct 37.5 L, MCV 96.2 H, M CH 31.3 H, MCHC 32.5, RDW 13.6, Plt Count 189, MPV 10.8 H, Neut % (Auto) 95.4 H, Lymph % (Auto) 1.9 L, [place] % (Auto) 0.9 L, Eos % (Auto) 0.1, Baso % (Auto) 0.5, Neut # (Auto) 10.8 H, Lymph # (Auto) 0.2 L, [place] # (Auto) 0.1, Eos # (Auto) 0.0, Baso # (Auto) 0.1, Total Counted 100, Neutrophils % (Manual) 95 H, Lymphocytes % (Manual) 3 L, Monocytes % (Manual) 2, Platelet Estimate Normal, RBC Morphology Normal, Sodium 139, Potassium 3.8, Chloride 115 H, Carbon Dioxide 16 L, Anion Gap 11.8, BUN 35 H, Creatinine 1.80 H D, Estimated Creat Clear 26, Estimated GFR 36 L, Est GFR ( Amer) 43 L D, Glucose 106 H, Lactate 2.4 H, Calcium 7.1 L , Total Bilirubin 1.3, AST 42, ALT 17 D, Alkaline Phosphatase 59, Troponin I 0.03, Total Protein 5.3 L, Albumin 2.6 L D, Globulin 2.7, Albumin/Globulin Ratio 1.0 L, Procalcitonin 49.0 H I & O for Labs for Last 24 Hours: Intake & Output 03/19/25 03/20/25 03/21/25 03/22/25 23:59 23:59 23:59 23:59 Intake Total 2175.417 / 2175.417 1643.387 / 1643.387 Output Total 650 / 650 550 / 550 Balance 1525.417 / 4446.078 1047.387 / 1093.387 Weight 144 lb 11.2 oz 144 lb 11.206 oz Microbiology Reports for the Last 24 Hours: Microbiology 03/21/25 20:07 Rectum CRE Surveillance Culture - Final Constitutional: Present severe distress Head: Present normocephalic and atraumatic ENT: Present normal exam, normal oropharynx and mucous membranes moist Neck: Present normal inspection and full ROM Respiratory: Present respiratory distress, rhonchi, wheezes and diminished air movement; Absent able to speak in complete sentences Cardiac: Present S1/S2, Tachycardia and radial pulses present GI: Present soft and distention; Absent tenderness or guarding Skin: Present intact; Absent cyanosis or jaundice Neuro: Present alert, awake and oriented x 3 Extremities: Present normal inspection; Absent clubbing or cyanosis Psychiatric: Present normal affect and cooperative Meds Home Medications and Allergies Home Medications ?Medication ?Instructions ?Recorded ?Confirmed ?Type No Known Home Medications 03/22/2502/23 History New Prescriptions to Start Prescriptions: Allergies Allergy/AdvReac Type Severity Reaction Status Date / Time No Known Allergies Allergy Verified 03/21/25 22:30 Results Laboratory Findings 03/22/25 04:37 03/22/25 04:37 Abnormal lab findings: Abnormal Labs 03/21/25 03/21/25 03/21/25 16:50 16:50 16:53 WBC 13.2 H RBC Hgb Hct MCV 97.5 H MCH 31.6 H MPV Neut % (Auto) 91.0 H Lymph % (Auto) 5.0 L [place] % (Auto) 1.6 L Neut # (Auto) 12.1 H Lymph # (Auto) Neutrophils % (Manual) Lymphocytes % (Manual) VBG pH 7.30 L VBG pO2 21.7 L VBG HCO3 18.7 L VBG Total CO2 19.9 L VBG O2 Saturation 31.9 L VBG Base Excess -7.7 L VBG Lactic Acid 7.6 H Chloride Carbon Dioxide 18 L Anion Gap 17.9 H BUN 39 H Creatinine 3.00 H Estimated GFR 20 L Est GFR ( Amer) 24 L Glucose 115 H Lactate Calcium Total Bilirubin 2.3 H 2.2 H Indirect Bilirubin 1.8 H Unconjugated Bilirubin 1.8 H Troponin I 0.08 H C-Reactive Protein 307.4 H NT-Pro-B Natriuret Pep 7180 H Total Protein Albumin Globulin 3.3 H Albumin/Globulin Ratio Procalcitonin 36.4 H Urine Protein Urine Blood Urine Total Protein 03/21/25 03/21/2503/21/25 20:07 20:37 23:07 WBC RBC Hgb Hct MCV MCH MPV Neut % (Auto) Lymph % (Auto) [place] % (Auto) Neut # (Auto) Lymph # (Auto) Neutrophils % (Manual) Lymphocytes % (Manual) VBG pH VBG pO2 VBG HCO3 VBG Total CO2 VBG O2 Saturation VBG Base Excess VBG Lactic Acid Chloride Carbon Dioxide Anion Gap BUN Creatinine Estimated GFR Est GFR ( Amer) Glucose Lactate 5.6 H 4.1 H Calcium Total Bilirubin Indirect Bilirubin Unconjugated Bilirubin Troponin I 0.05 H 0.04 H C-Reactive Protein NT-Pro-B Natriuret Pep Total Protein Albumin Globulin Albumin/Globulin Ratio Procalcitonin Urine Protein 2+ A Urine Blood 3+ A Urine Total Protein 79.0 H 03/22/25 04:37 WBC 11.4 H RBC 3.90 L Hgb 12.4 L D Hct 37.5 L MCV 96.2 H MCH 31.3 H MPV 10.8 H Neut % (Auto) 95.4 H Lymph % (Auto) 1.9 L [place] % (Auto) 0.9 L Neut # (Auto) 10.8 H Lymph # (Auto) 0.2 L Neutrophils % (Manual) 95 H Lymphocytes % (Manual) 3 L VBG pH VBG pO2 VBG HCO3 VBG Total CO2 VBG O2 Saturation VBG Base Excess VBG Lactic Acid Chloride 115 H Carbon Dioxide 16 L Anion Gap BUN 35 H Creatinine 1.80 H D Estimated GFR 36 L Est GFR ( Amer) 43 L D Glucose 106 H Lactate 2.4 H Calcium 7.1 L Total Bilirubin Indirect Bilirubin Unconjugated Bilirubin Troponin I C-Reactive Protein NT-Pro-B Natriuret Pep Total Protein 5.3 L Albumin 2.6 L D Globulin Albumin/Globulin Ratio 1.0 L Procalcitonin 49.0 H Urine Protein Urine Blood Urine Total Protein Assessment and Plan *Assessment and plan (1) Acute and chronic respiratory failure with hypoxia: Status: Acute Category: Medical Code(s): J96.21 - Acute and chronic respiratory failure with hypoxia (2) Pneumonia: Status: Acute Category: Medical Code(s): J18.9 - Pneumonia, unspecified organism (3) Sepsis: Status: Acute Qualifiers: Acute respiratory failure type: with hypoxia Sepsis acute organ dysfunction status: with acute organ dysfunction Sepsis type: sepsis due to unspecified organism Severe sepsis acute organ dysfunction type: acute respiratory failure Severe sepsis shock status: with septic shock Qualified Code(s): A41.9 - Sepsis, unspecified organism; R65.21 - Severe sepsis with septic shock; J96.01 - Acute respiratory failure with hypoxia Category: Medical Code(s): A41.9 - Sepsis, unspecified organism Plan Ms. Berman is a 89-year-old male greater than [id number] smoking history, COPD presented to the ER with worsening respiratory distress and pulmonary was called for further evaluation and manage. Afebrile. Hemodynamically stable. Neutrophilic predominant leukocytosis. Comprehensive respiratory viral PCR panel negative. CTA upon admission bilateral extensive lobar airspace disease left greater than right. No evidence of pulmonary embolism. Mediastinal and hilar lymphadenopathy noted likely reactive. Currently receiving nebulization therapies, steroids vancomycin and Meropenem. Blood cultures pending. On initial examination severe respiratory distress. Unable to complete in full sentences. Diffuse wheezing on auscultation. On HFNC. Plan: Incentive spirometry and flutter valve Discontinue methylprednisolone Continue high flow nasal oxygen supplementation to maintain O2 saturation of 90% and above. Current: 25 L 45%. DuoNebs every 6 hours along with Pulmicort every 12 scheduled Antibiotics can be weaned to Zosyn from pulmonary standpoint pending final culture results. Prelim sputum culture strep pneumonia.
--- NOTE | 2025-03-22 13:43 | EXP.CARD.CON ---
History of Present Illness History of Present Illness Consult date: 03/22/25 Requesting physician: Dane Valentino Consult reason: shortness of breath Chief complaint: soa History of present illness: Hospitalist note: This is an 89-year-old male who has a past medical history significant fo for bladder cancer and COPD who presents with a chief complaint of shortness of breath. Due to patient's symptoms, he presented to the emergency room for evaluation. While in the emergency room, CT scan of the chest revealed no acute pulmonary emboli, advanced pulmonary emphysema with a large left lower lobe consolidative pneumonia and small right lower lobe consolidated pneumonia with the possibility of a cavitation, probable reactive mediastinal lymph nodes, and advanced three-vessel coronary artery calcification. Patient was hypotensive, hypoxemic, and tachycardic while in the emergency room. He was given crystalloids and his blood pressure did not improve; however, his hypoxemia persisted and required nonrebreather. As a result, hospital medicine was consulted for further management. Patient is normally not oxygen dependent. During my evaluation of the patient, patient states he has not felt well for approximately 1 week. He reports progressive shortness of air and not feeling well over the past 2 days. Over the past 2 days he started to experience a mild nonproductive cough. Patient reports that he did use his home nebulizer and it did not provide him any relief. Daughter at the bedside states that he was in contact with his son who was ill and he was at a birthday democrat where a young lady had a sinus infection. Patient has known bladder cancer and has had his bladder removed with an ostomy placed approximately 11 years ago. He does report having some wheezing at home. Currently he is denying any chest pain, lightheadedness, dizziness, fever, chills, rigors, nausea, vomiting, or diarrhea. Additional pertinent vitals obtained include a white blood cell count of 13.2, neutrophils 91%, pH 7.30, bicarb of 18.7, carbon oxide of 18, BUN of 39, creatinine of 3, GFR of 20, blood glucose 115, total bilirubin 2.2, troponin 0.08, C-reactive protein 307.4, BNP of 7180, and procalcitonin of 36.4. Cardiology note: Cardiology was asked to evaluate Mr. Berman for elevated troponins. Initial troponin was 0.08 and has trended down to 0.03. Patient is currently being treated for sepsis and pneumonia and is on Levophed and requiring Vapotherm. ProBNP was 7180 on admission. EKG showed sinus tachycardia with frequent PVCs and was negative for STEMI. Echo is pending. On exam patient denies chest pain he does report shortness of breath. Creatinine on admission was 3 improved to 1.8 today after fluid bolus for sepsis. [facility] Disclaimer: The information contained in this section may have been updated after the patient was seen, as this information can be updated by other users. Medical History (Updated 03/22/25 @ 13:09 by Kip Staples MD) Pneumonia Acute and chronic respiratory failure with hypoxia Dyspnea on exertion Smoking greater than 30 pack years History of primary bladder cancer COPD (chronic obstructive pulmonary disease) Surgical History History of prostatectomy Family History (Updated 03/21/25 @ 20:51 by Lesli Pettit RN) Other No significant family history Social History Smoking Status: Current every day smoker alcohol intake: never current occupational status: other Travel in the last 8 weeks?: None housing: house Have you lived/traveled outside [place] in past 30 days?: No Contact w/someone who lives/traveled outside US past 30 days?: No Exposure to someone with infectious disease in past 14 days?: No Do you have a fever (greater than 100.4 F or 38 C)?: No Have you tested positive for COVID-19?: No Exposed to someone with COVID-19 in past 14 days?: No Do you have a sore throat?: No Do you have a cough?: No Do you have any weakness?: No Do you have any diarrhea?: No Are you experiencing any unusual bleeding?: No Do you have any muscle aches/pain?: No Do you have any abdominal pain?: No Are you experiencing loss of taste or smell?: No Review of Systems Review of Systems Review of systems:: pertinent systems reviewed and negative unless documented below Constitutional Constitutional: Reports weakness *Cardiovascular Cardiovascular: Denies chest pain at rest and Reports dyspnea *Respiratory Respiratory: Reports dyspnea *Neurologic Neurologic: Reports weakness Exam Data for Last 24 hours Vital signs and Labs for Last 24 Hours: Temp Pulse Resp BP Pulse Ox O2 Del Method O2 Flow Rate 99.0 F 94 H 24 100/49 L 96 Vapotherm 20 03/22/25 12:00 03/22/25 13:15 03/22/25 13:15 03/22/25 13:15 03/22/25 13:15 03/22/25 13:15 03/22/25 13:15 FiO2 45 03/22/25 13:15 Laboratory Results - last 24 hr 03/21/25 16:43: Chlamy pneumoniae PCR Not detected, Adenovirus (PCR) Not detected, B. pertussis DNA (PCR) Not detected, Coronavirus OC43 (PCR) Not detected, Coronavirus HKU1 (PCR) Not detected, Coronavirus 229E (PCR) Not detected, SARS-CoV-2 (PCR) Not detected, Coronavirus NL63 (PCR) Not detected, Human Metapneumovir PCR Not detected, Influenza A (H1) PCR Not detected, Influ A (H1N1/09) PCR Not detected, Influenza A (H3) PCR Not detected, Influenza Type A (PCR) Not detected, Influenza Type B (PCR) Not detected, M. pneumoniae (PCR) Not detected, Parainfluenza 1 (PCR) Not detected, Parainfluenza 2 (PCR) Not detected, Parainfluenza 3 (PCR) Not detected, Parainfluenza 4 (PCR) Not detected, RSV (PCR) Not detected, Entero/Rhino (PCR) Not detected 03/21/25 16:50: WBC 13.2 H, RBC 4.72, Hgb 14.9, Hct 46.0, MCV 97.5 H, MCH 31.6 H, MCHC 32.4, RDW 13.5, Plt Count 217, MPV 10.0, Neut % (Auto) 91.0 H, Lymph % (Auto) 5.0 L, [place] % (Auto) 1.6 L, Eos % (Auto) 0.5, Baso % (Auto) 0.6, Neut # (Auto) 12.1 H, Lymph # (Auto) 0.7, [place] # (Auto) 0.2, Eos # (Auto) 0.1, Baso # (Auto) 0.1, Sodium 137, Potassium 3.9, Chloride 105, Carbon Dioxide 18 L, Anion Gap 17.9 H, BUN 39 H, Creatinine 3.00 H, Estimated Creat Clear 15, Estimated GFR 20 L, Est GFR ( Amer) 24 L, Glucose 115 H, Calcium 8.5, Total Bilirubin 2.3 H 03/21/25 16:50: Total Bilirubin 2.2 H, Direct Bilirubin 0.4, Conjugated Bilirubin 0.0, Indirect Bilirubin 1.8 H, Unconjugated Bilirubin 1.8 H, AST 55, ALT 29, Alkaline Phosphatase 81, Troponin I 0.08 H, C-Reactive Protein 307.4 H, NT-Pro-B Natriuret Pep 7180 H, Total Protein 6.9, Albumin 3.6, Globulin 3.3 H, Albumin/Globulin Ratio 1.1, Procalcitonin 36.4 H 03/21/25 16:53: VBG pH 7.30 L, VBG pCO2 38.8, VBG pO2 21.7 L, VBG HCO3 18.7 L, VBG Total CO2 19.9 L, VBG O2 Saturation 31.9 L, VBG Base Excess -7.7 L, VBG Lactic Acid 7.6 H 03/21/25 20:07: Urine Color Yellow, Urine Appearance Cloudy, Urine pH 6.0, Ur Specific [place] 1.015, Urine Protein 2+ A, Urine Glucose (UA) Negative, Urine Ketones Negative, Urine Blood 3+ A, Urine Nitrate Negative, Urine Bilirubin Negative, Urine Urobilinogen 0.2, Ur Leukocyte Esterase Trace, Urine RBC 20-50, Urine WBC 20-50, Ur Squamous Epith Cells Occasional, Amorphous Sediment 1+, Urine Bacteria 3+, Ur Random Urea Nitrogn 331, Urine Creatinine 70, Urine Sodium 55.0, Urine Total Protein 79.0 H 03/21/25 20:37: Lactate 5.6 H, Troponin I 0.05 H 03/21/25 23:07: Lactate 4.1 H, Troponin I 0.04 H 03/22/25 04:37: WBC 11.4 H, RBC 3.90 L, Hgb 12.4 L D, Hct 37.5 L, MCV 96.2 H, MCH 31.3 H, MCHC 32.5, RDW 13.6, Plt Count 189, MPV 10.8 H, Neut % (Auto) 95.4 H, Lymph % (Auto) 1.9 L, [place] % (Auto) 0.9 L, Eos % (Auto) 0.1, Baso % (Auto) 0.5, Neut # (Auto) 10.8 H, Lymph # (Auto) 0.2 L, [place] # (Auto) 0.1, Eos # (Auto) 0.0, Baso # (Auto) 0.1, Total Counted 100, Neutrophils % (Manual) 95 H, Lymphocytes % (Manual) 3 L, Monocytes % (Manual) 2, Platelet Estimate Normal, RBC Morphology Normal, Sodium 139, Potassium 3.8, Chloride 115 H, Carbon Dioxide 16 L, Anion Gap 11.8, BUN 35 H, Creatinine 1.80 H D, Estimated Creat Clear 26, Estimated GFR 36 L, Est GFR ( Amer) 43 L D, Glucose 106 H, Lactate 2.4 H, Calcium 7.1 L, Total Bilirubin 1.3, AST 42, ALT 17 D, Alkaline Phosphatase 59, Troponin I 0.03, Total Protein 5.3 L, Albumin 2.6 L D, Globulin 2.7, Albumin/Globulin Ratio 1.0 L, Procalcitonin 49.0 H I & O for Last 24 hours: Intake & Output 03/19/25 03/20/25 03/21/25 03/22/25 23:59 23:59 23:59 23:59 Intake Total 2175.417 / 2175.417 1646.014 / 1646.014 Output Total 650 / 650 550 / 550 Balance 1525.417 / 9468.780 9897.014 / 1096.014 Weight 144 lb 11.2 oz 144 lb 11.206 oz Microbiology Reports for the Last 24 Hours: Microbiology 03/21/25 16:56 Blood Blood Culture - Final 03/21/25 20:07 Rectum CRE Surveillance Culture - Final Constitutional Constitutional: no acute distress *Routine Respiratory Exam Respiratory: Present wheezes and symmetric chest movement *Routine Cardiovascular Exam Cardiovascular: Present RRR, Normal S1 and Normal S2 *Routine Abdominal Exam Abdominal: Present soft and normoactive bowel sounds; Absent tenderness *Routine Extremities Exam Extremities: Present full ROM and normal capillary refill; Absent edema *Routine Skin Exam Skin: Present intact, dry and warm Detailed Neck Exam: Thyroids Thyroid: Absent bruit Meds Home Medications and Allergies Home Medications ?Medication ?Instructions ?Recorded ?Confirmed ?Type No Known Home Medications 03/22/25 03/22/25 History New Prescriptions to Start Prescriptions: Allergies Allergy/AdvReac Type Severity Reaction Status Date / Time No Known Allergies Allergy Verified 03/21/25 22:30 Assessment and Plan *Assessment and plan (1) Pneumonia: Status: Acute Category: Medical Code(s): J18.9 - Pneumonia, unspecified organism (2) Acute and chronic respiratory failure with hypoxia: Status: Acute Category: Medical Code(s): J96.21 - Acute and chronic respiratory failure with hypoxia (3) Elevated troponin: Status: Acute Category: Medical Code(s): R79.89 - Other specified abnormal findings of blood chemistry (4) Elevated brain natriuretic peptide (BNP) level: Status: Acute Category: Medical Code(s): R79.89 - Other specified abnormal findings of blood chemistry (5) MORE (acute kidney injury): Status: Acute Category: Medical Code(s): N17.9 - Acute kidney failure, unspecified (6) Sepsis: Status: Acute Qualifiers: Acute respiratory failure type: with hypoxia Sepsis acute organ dysfunction status: with acute organ dysfunction Sepsis type: sepsis due to unspecified organism Severe sepsis acute organ dysfunction type: acute respiratory failure Severe sepsis shock status: with septic shock Qualified Code(s): A41.9 - Sepsis, unspecified organism; R65.21 - Severe sepsis with septic shock; J96.01 - Acute respiratory failure with hypoxia Category: Medical Code(s): A41.9 - Sepsis, unspecified organism Plan Elevated troponin Elevated proBNP Troponin was initially elevated and has trended down in the setting of acute illness with sepsis and pneumonia. Patient denies chest pain, does have ongoing shortness of breath ProBNP was elevated on admission however patient appears to be hypovolemic and dehydrated with a creatinine of 3 which has improved with fluid bolus EKG negative for acute STEMI Echocardiogram is pending Recommend ischemic evaluation either prior to discharge home or on an outpatient basis depending on response to sepsis and pneumonia treatment. Start aspirin and statin Sepsis Pneumonia Will defer treatment to pulmonology and primary service.
[2025-03-22] MEDS: ASPIRIN EC 81MG TABLET 81 MG PO (14:09)
--- NOTE | 2025-03-22 16:13 | HMH.SLDYSPHA ---
Speech & Language Evaluation Speech/Language Dysphagia Evaluation Start: 03/22/25 16:03 Freq: ONCE Status: Active Protocol: Document 03/22/25 16:03 CHARLY (Rec: 03/22/25 16:13 [id number] Dysphagia Assess/Goals/Plan Assessment Date of Evaluation: 03/22/25 Evaluation Type Initial Certification Assessment/Problems aspiration concerns Does Patient Qualify Yes for Service Qualify/Failure Based on clinical observations made throughout CSE, pt Comment would benefit from further instrumental assessment via MBSS to further evaluate oropharyngeal phase of the swallow. Recommendations PHYSICIAN CERTIFICATION: The specified therapy services are required, authorized, and reviewed every 30 days. Pt will be seen # 1 times/week for # weeks 4 Diet Recommendations Mechanical Soft Liquid Type Normal/Thin Recommendations SL Swallow Alt bite w/sip thru meal,Standard Aspiration Prec.,Eat Guidelines at slow rate,Reflux precautions Dysphagia Swallow Sitting Upright (90 deg),Double Swallow,No Straw,Small Precautions/ Bites and Sips,Alternate Liquids/Solids Strategies Plan Anticipate reaching 2 STG in # weeks Anticipate reaching 4 LTG in # weeks Pt/Guardian verbally Yes ack understanding of dx/prognosis/ goals G -code Required No STG-Other Comment/Non-Specific Pt will take part in MBSS to further evaluate oropharyngeal phase of the swallow. Education Instructions Discussed CSE results, educated on aspiration risks/ provided concerns, reviewed aspiration precautions/compensatory strategies, as well as provided education on MBSS benefit and diet recommendations with pt, nursing, and care management all of which expressed understanding. Pt/Caregiver able to Able to recall/restate recall information Reinforcement needed No Speech & Language HPI History Present Illness Description of This is an 89-year-old male who has a past Patient Problem medical history significant fo for bladder cancer and COPD who presents with a chief complaint of shortness of breath. Due to patient's symptoms, he presented to the emergency room for evaluation. While in the emergency room, CT scan of the chest revealed no acute pulmonary emboli, advanced pulmonary emphysema with a large left lower lobe consolidative pneumonia and small right lower lobe consolidated pneumonia with the possibility of a cavitation, probable reactive mediastinal lymph nodes, and advanced three-vessel coronary artery calcification. Patient was hypotensive , hypoxemic, and tachycardic while in the emergency room. He was given crystalloids and his blood pressure did not improve; however, his hypoxemia persisted and required nonrebreather. As a result, hospital medicine was consulted for further management. Patient is normally not oxygen dependent. During my evaluation of the patient, patient states he has not felt well for approximately 1 week. He reports progressive shortness of air and not feeling well over the past 2 days. Over the past 2 days he started to experience a mild nonproductive cough. Patient reports that he did use his home nebulizer and it did not provide him any relief. Daughter at the bedside states that he was in contact with his son who was ill and he was at a birthday democr[employer] where a young lady had a sinus infection. Patient has known bladder cancer and has had his bladder removed with an ostomy placed approximately 11 years ago. He does report having some wheezing at home. Currently he is denying any chest pain, lightheadedness, dizziness, fever, chills, rigors , nausea, vomiting, or diarrhea. Additional pertinent vitals obtained include a white blood cell count of 13. 2, neutrophils 91%, pH 7.30, bicarb of 18.7, carbon oxide of 18, BUN of 39, creatinine of 3, GFR of 20, blood glucose 115, total bilirubin 2.2, troponin 0.08, C-reactive protein 307.4, BNP of 7180, and procalcitonin of 36.4. Hearing Hearing Ability Hard of Hearing General Information General Current Food Regular,Thin Liquids Consistancy Dentition Upper & Lower Dentures Patient Orientation Person,Place,Time Ability to Follow Good Directions Dysphagia:Food Presentation Evaluation Food Type Pureed,Regular,Liquid,Pudding Normal/Thin Liquid Coughing after swallow,Clears throat Response Dysphagia Evaluation Coughing after swallow,Clears throat Regular Food Behavior Response Dysphagia Evaluation Pt was seen sitting upright in bed for clinical bedside Summary swallow. He was given oral care prior to administering trials. Overt aspiration was observed during thin liquids and regular solids. He demonstrated coughing and delayed throat clearing. Delayed productive cough observed following ending CSE. FERTILIZER MIXER administered thin liquids via ice chip, spoon, and single open cup sip with no overt sxs of aspiration, however, with straw and subsequent sips, he was noted to cough/clear throat ; o2 sats remained at baseline. He also demonstrated delayed wet, productive cough following juan cracker solid trial. Based on results of CSE pt would benefit from MBSS. Pt expressed understanding following FERTIL[employer]ER MIXER education on aspiration risks/precautions, need for MBSS-- he reported he was ready to go home (referring to the alfred and FERTILIZER MIXER reported to nurse who stated that was not his first statement of that nature.) FERTILIZER MIXER will f /u to schedule MBSS, if pt decides, in meantime he would like to continue on diet. Stroke Dysphagia Assessment PHYSICIAN CERTIFICATION: I certify the specified therapy services for Buster Carneymichellmansi are required, authorized, and reviewed every 30 days.
--- NOTE | 2025-03-22 17:54 | EXP.PN ---
Subjective *Date: 03/22/25 *Time: 17:54 Exam Data for Last 24 hours Vital signs and Labs for Last 24 Hours: Temp Pulse Resp BP Pulse Ox O2 Del Method O2 Flow Rate 97.7 F 94 H 30 H 98/55 L 91 L Vapotherm 03/22/25 16:30 03/22/25 17:01 03/22/25 17:01 03/22/25 17:01 03/22/25 17:01 03/22/25 17:01 03/22/25 17:01 FiO2 45 03/22/25 17:01 Laboratory Results - last 24 hr 03/21/25 16:43: Chlamy pneumoniae PCR Not detected, Adenovirus (PCR) Not detected, B. pertussis DNA (PCR) Not detected, Coronavirus OC43 (PCR) Not detected, Coronavirus HKU1 (PCR) Not detected, Coronavirus 229E (PCR) Not detected, SARS-CoV-2 (PCR) Not detected, Coronavirus NL63 (PCR) Not detected, Human Metapneumovir PCR Not detected, Influenza A (H1) PCR Not detected, Influ A (H1N1/09) PCR Not detected, Influenza A (H3) PCR Not detected, Influenza Type A (PCR) Not detected, Influenza Type B (PCR) Not detected, M. pneumoniae (PCR) Not detected, Parainfluenza 1 (PCR) Not detected, Parainfluenza 2 (PCR) Not detected, Parainfluenza 3 (PCR) Not detected, Parainfluenza 4 (PCR) Not detected, RSV (PCR) Not detected, Entero/Rhino (PCR) Not detected 03/21/25 16:50: Total Bilirubin 2.2 H, Direct Bilirubin 0.4, Conjugated Bilirubin 0.0, Indirect Bilirubin 1.8 H, Unconjugated Bilirubin 1.8 H 03/21/25 20:07: Urine Color Yellow, Urine Appearance Cloudy, Urine pH 6.0, Ur Specific [place] 1.015, Urine Protein 2+ A, Urine Glucose (UA) Negative, Urine Ketones Negative, Urine Blood 3+ A, Urine Nitrate Negative, Urine Bilirubin Negative, Urine Urobilinogen 0.2, Ur Leukocyte Esterase Trace, Urine RBC 20-50, Urine WBC 20-50, Ur Squamous Epith Cells Occasional, Amorphous Sediment 1+, Urine Bacteria 3+, Ur Random Urea Nitrogn 331, Urine Creatinine 70, Urine Sodium 55.0, Urine Total Protein 79.0 H 03/21/25 20:37: Lactate 5.6 H, Troponin I 0.05 H 03/21/25 23:07: Lactate 4.1 H, Troponin I 0.04 H 03/22/25 04:37: WBC 11.4 H, RBC 3.90 L, Hgb 12.4 L D, Hct 37.5 L, MCV 96.2 H, MCH 31.3 H, MCHC 32.5, RDW 13.6, Plt Count 189, MPV 10.8 H, Neut % (Auto) 95.4 H, Lymph % (Auto) 1.9 L, [place] % (Auto) 0.9 L, Eos % (Auto) 0.1, Baso % (Auto) 0.5, Neut # (Auto) 10.8 H, Lymph # (Auto) 0.2 L, [place] # (Auto) 0.1, Eos # (Auto) 0.0, Baso # (Auto) 0.1, Total Counted 100, Neutrophils % (Manual) 95 H, Lymphocytes % (Manual) 3 L, Monocytes % (Manual) 2, Platelet Estimate Normal, RBC Morphology Normal, Sodium 139, Potassium 3.8, Chloride 115 H, Carbon Dioxide 16 L, Anion Gap 11.8, BUN 35 H, Creatinine 1.80 H D, Estimated Creat Clear 26, Estimated GFR 36 L, Est GFR ( Amer) 43 L D, Glucose 106 H, Lactate 2.4 H, Calcium 7.1 L, Total Bilirubin 1.3, AST 42, ALT 17 D, Alkaline Phosphatase 59, Troponin I 0.03, Total Protein 5.3 L, Albumin 2.6 L D, Globulin 2.7, Albumin/Globulin Ratio 1.0 L, Procalcitonin 49.0 H I & O for Last 24 hours: Intake & Output 03/19/25 03/20/25 03/21/25 03/22/25 23:59 23:59 23:59 23:59 Intake Total 2175.417 / 2175.417 3094.806 / 3094.806 Output Total 650 / 650 850 / 850 Balance 1525.417 / 1248.184 6188.806 / 2244.806 Weight 65.635 kg 65.635 kg Microbiology Reports for the Last 24 Hours: Microbiology 03/21/25 16:50 Blood Blood Culture - Preliminary NO GROWTH AFTER 24 HOURS 03/21/25 16:56 Blood Blood Culture - Final 03/21/25 20:07 Rectum CRE Surveillance Culture - Final Assessment and Plan *Assessment and plan (1) Pneumonia: Status: Acute Category: Medical Code(s): J18.9 - Pneumonia, unspecified organism (2) CAD (coronary artery disease): Status: Acute Category: Medical Code(s): I25.10 - Atherosclerotic heart disease of [place] coronary artery without angina pectoris Plan Buster Berman is a 89-year-old male who presented with shortness of breath and was admitted with acute hypoxic respiratory failure from community-acquired pneumonia with septic shock. #History of community-acquired pneumonia #Septic shock ? Presented with shortness of breath, CTA chest showing bibasilar pneumonia. ? Blood culture growing strep pneumonia, sensitivities pending. ? Patient states he feels better today, breathing easier. No chest pain. ? WBC improved from 13.2-11.4, procalcitonin however bumped from 36-49. ? Continues to be in septic shock requiring Levophed 5 mcg, MAP < 65 when weaning off. Goal MAP >65. ? Pulmonology consulted, recommended weaning antibiotics to Zosyn pending sensitivities. Discontinued vancomycin, cefepime, Solu-Medrol. ? Continue Zosyn 3.375 mg every 6 hours. Continue to renally dose. ? Continue Vapotherm 25 L 45%, wean as tolerated. ? Continue DuoNebs every 6 hours. ? Follow-up final sputum, blood cultures with sensitivities. ? Follow-up morning CBC, CMP. ? Patient is interested in pneumonia vaccination after discharge. #MORE on CKD ? Initial creatinine 3.0, improving to 1.8 with IV fluids and treatment of sepsis. ? Follow-up morning RFT's. #CAD #NSTEMI type II #Severe coronary calcification ? Evidenced by CTA chest. Troponins peaked at 0.08, improved to 0.03. No chest pain. Likely NSTEMI type II in the setting of septic shock. ? Started aspirin 81 mg. Hold statin due to septic shock #Elevated BNP ? BNP 7180, no known history of CHF. No signs of fluid overload. ? Plan for outpatient ECHO unless volume status changes or patient becomes otherwise symptomatic. DNR/DNI DVT prophylaxis: Lovenox 30 mg
[2025-03-22] MEDS: NOREPINEPHRINE BITARTRATE/D5W 8 MG/250 ML PLAST..BAG 9.38 MG IV (19:13)
[2025-03-22] MEDS: OLANZapine 5 MG ODT TABLET SL (21:01)
[2025-03-22] MEDS: PIPERCILLIN/TAZO 3.375 GM in 0.9 % SODIUM CHLORIDE 50 ML IV (21:04)
[2025-03-22] MEDS: GUAIFENESIN/DEXTROMETHORPHAN 200MG/20MG 10ML UDC 10 ML PO (23:33)
[2025-03-23] VITALS (57 sets, daily range): BP systolic 85–134; BP diastolic 43–84; PULSE 62–109; RESP 19–44; TEMP 36.3–37.2; O2SAT 85–98; BMI 21.5
[2025-03-23] MEDS: IPRATROPIUM/ALBUTEROL 3 ML NEB IH ×5 (00:40→23:34)
[2025-03-23] MEDS: PIPERCILLIN/TAZO 3.375 GM in 0.9 % SODIUM CHLORIDE 50 ML IV ×4 (03:30→21:22)
[2025-03-23 07:46] LABS: Hematocrit 34.7 % (42.0-52.0); Hemoglobin 11.5 g/dL (14.1-18.0); Immature Granulocytes % 1.0 %; Mean Corpuscular HGB Conc 33.1 g/dL (31.8-35.4); Mean Corpuscular Hemoglobin 31.8 pg (27.0-31.2); Mean Corpuscular Volume 95.9 fl (80-94); Nucleated Red Blood Cells % 0 %; Platelet Count 202 K/mm3 (142-424); Red Blood Count 3.62 M/mm3 (4.60-6.20); Red Cell Distribution Width-SD 48.4 fL; White Blood Count 14.2 K/mm3 (4.8-10.8)
[2025-03-23 07:52] LABS: Alanine Aminotransferase 27 U/L (12-78); Albumin Level 2.8 g/dl (3.5-5.0); Albumin/Globulin Ratio 0.9 (1.1-1.8); Alkaline Phosphatase 83 U/L (38-126); Anion Gap 13.3 mEq/L (5-15); Aspartate Amino Transferase 50 U/L (17-59); Bilirubin,Total 0.9 mg/dl (0.2-1.3); Blood Urea Nitrogen 39 mg/dl (9-20); Calcium 8.0 mg/dl (8.4-10.2); Carbon Dioxide 20 mmol/L (22.0-30.0); Chloride 114 mmol/L (98-107); Creatinine Clearance Estimated 31 mL/min (50-200); Creatinine,Serum 1.60 mg/dl (0.66-1.25); Estimated Glomerular Filt Rate 41 ml/min (>60); GFR (African American) 49 ML/MIN (>60); Globulin 3.0 g/dL (1.3-3.2); Glucose 112 mg/dl (74-100); Potassium 4.3 mmoL/L (3.5-5.1); Sodium 143 mmol/L (136-145); Total Protein,Serum 5.8 g/dl (6.3-8.2)
[2025-03-23] MEDS: ASPIRIN EC 81MG TABLET 81 MG PO (08:53)
[2025-03-23] MEDS: guaiFENesin 600 MG TAB.ER.12H PO ×2 (08:53→20:20)
[2025-03-23 09:23] LABS: Procalcitonin 42.1 ng/mL (0.0-2.0)
[2025-03-23 11:43] LABS: Albumin, U 115.4 ug/mL (Not Estab.)
[2025-03-23 12:19] LABS: RBC Morphology Normal; Total Cells Counted 100
[2025-03-23] MEDS: GUAIFENESIN/DEXTROMETHORPHAN 200MG/20MG 10ML UDC 10 ML PO ×2 (17:24→21:23)
--- NOTE | 2025-03-23 17:31 | PC.NURSE ---
Addendum entered by Aminta Quarles RN 03/23/25 18:13: pt has had 3 BM's this shift. asked md if he wanted a stool sample and MD stated no need for sample. Original Note: Pt has done well this shift. Decreased to 6L nasal cannula and tolerates it well. During coughing spells his 02 drops to the low 80's and rebounds within a few minutes. Cough has been non-productive and dry/hacking. He had a moderate BM this evening. Skin is C/D/I. He is currently on 1mcg/min of levophed.
--- NOTE | 2025-03-23 18:18 | EXP.PN ---
Subjective *Date: 03/24/25 *Time: 16:40 Interval history: Patient stated he was still having some shortness of breath, same as yesterday. No chest pain. Exam Data for Last 24 hours Vital signs and Labs for Last 24 Hours: Temp Pulse Resp BP Pulse Ox O2 Del Method O2 Flow Rate 98.9 F 95 H 30 H 134/56 L 95 Nasal Cannula 5 03/23/25 16:01 03/23/25 18:01 03/23/25 18:01 03/23/25 18:03/23/25 18:01 03/23/25 18:01 03/23/25 18:01 FiO2 45 03/23/25 11:30 Laboratory Results - last 24 hr 03/21/25 20:07: Urine Creatinine 7.0, Urine Albumin 115.4 03/23/25 06:58: WBC 14.2 H, RBC 3.62 L, Hgb 11.5 L, Hct 34.7 L, MCV 95.9 H, MCH 31.8 H, MCHC 33.1, RDW 13.6, Plt Count 202, MPV 10.4, Neut % (Auto) 95.5 H, Lymph % (Auto) 1.8 L, [place] % (Auto) 1.1 L, Eos % (Auto) 0.1, Baso % (Auto) 0.5, Neut # (Auto) 13.6 H, Lymph # (Auto) 0.3 L, [place] # (Auto) 0.2, Eos # (Auto) 0.0, Baso # (Auto) 0.1, Total Counted 100, Neutrophils % (Manual) 94 H, Lymphocytes % (Manual) 4 L, Monocytes % (Manual) 2, Platelet Estimate Normal, RBC Morphology Normal, Sodium 143, Potassium 4.3, Chloride 114 H, Carbon Dioxide 20 L, Anion Gap 13.3, BUN 39 H, Creatinine 1.60 H, Estimated Creat Clear 31, Estimated GFR 41 L, Est GFR ( Amer) 49 L, Glucose 112 H, Calcium 8.0 L, Total Bilirubin 0.9, AST 50, ALT 27 D, Alkaline Phosphatase 83, Total Protein 5.8 L, Albumin 2.8 L, Globulin 3.0, Albumin/Globulin Ratio 0.9 L, Procalcitonin 42.1 H I & O for Last 24 hours: Intake & Output 03/20/25 03/21/25 03/22/25 03/23/25 23:59 23:59 23:59 23:59 Intake Total 2175.417 / 2175.417 4566.835 / 4686.835 1208.287 / 1208.287 Output Total 650 / 650 1250 / 1250 500 / 500 Balance 1525.417 / 9514.863 8789.835 / 3436.835 708.287 / 708.287 Weight 65.635 kg 65.635 kg 69.763 kg Microbiology Reports for the Last 24 Hours: Microbiology 03/21/25 16:50 Blood Blood Culture - Preliminary NO GROWTH AFTER 48 HOURS 03/22/25 09:08 Sputum - Expectorated Sputum Gram Stain - Final 03/21/25 16:56 Blood Blood Culture - Preliminary 03/21/25 20:07 Urine,Clean Catch Urine Culture - Final Multiple organisms, suggests contamination. Constitutional Constitutional: no acute distress and chronically ill appearing *Routine HEENT Exam Head: Present normocephalic Eye: Present EOMI and PERRL ENT: Present mucous membranes moist *Routine Neck Exam Neck: Present supple; Absent lymphadenopathy *Routine Respiratory Exam Respiratory: Present crackles; Absent CTA bilaterally *Routine Cardiovascular Exam Cardiovascular: Present RRR *Routine Abdominal Exam Abdominal: Present soft and normoactive bowel sounds; Absent tenderness *Routine Extremities Exam Extremities: Absent cyanosis, clubbing or edema *Routine Skin Exam Skin: Present warm; Absent rash *Routine Neurological Exam Neurological: Present alert and oriented X3 Assessment and Plan *Assessment and plan (1) Pneumonia: Status: Acute Category: Medical Code(s): J18.9 - Pneumonia, unspecified organism (2) CAD (coronary artery disease): Status: Acute Category: Medical Code(s): I25.10 - Atherosclerotic heart disease of [place] coronary artery without angina pectoris Plan Buster Berman is a 89-year-old male who presented with shortness of breath and was admitted with acute hypoxic respiratory failure from community-acquired pneumonia with septic shock. #Acute hypoxic respiratory failure #Community-acquired pneumonia #Strep pneumonia bacteremia #Septic shock, resolved #Sepsis ? Presented with shortness of breath, CTA chest showing bibasilar pneumonia. ? Blood culture growing strep pneumonia, sensitivities pending. ? Patient stated he was still having some shortness of breath, same as yesterday. Weaned Vapotherm to nasal cannula 5 L today. ? WBC bumped slightly from 11.4-14.2 in the setting of steroids, procalcitonin 49 yesterday. HR 95, respiratory rate 30 today. ? Weaned off Levophed today, MAP currently 72. Monitor closely, downgraded to stepdown care. ? Continue Zosyn 3.375 mg every 6 hours. Continue to renally dose. Appreciate pulmonology recommendations. ? Follow-up final sputum, blood cultures with sensitivities. ? Follow-up morning CBC, CMP. ? Patient is interested in pneumonia vaccination after discharge. #MORE on CKD ? Initial creatinine 3.0, improving to 1.6 today with IV fluids and treatment of sepsis. ? Follow-up morning RFT's. #CAD #NSTEMI type II #Severe coronary calcification ? Evidenced by CTA chest. Troponins peaked at 0.08, improved to 0.03. No chest pain. Likely NSTEMI type II in the setting of septic shock. ? Started aspirin 81 mg. Hold statin due to sepsis. #Elevated BNP ? BNP 7180, no known history of CHF. No signs of fluid overload. ? Plan for outpatient ECHO unless volume status changes or patient becomes otherwise symptomatic. DNR/DNI DVT prophylaxis: Lovenox 30 mg
[2025-03-23 19:51] LABS: INR 0.96 (0.9-1.1); Prothrombin Time 10.7 seconds (10.1-12.5)
[2025-03-23] MEDS: OLANZapine 5 MG ODT TABLET SL (20:20)
[2025-03-23] MEDS: HYDROCODONE/APAP 5/325 MG TABLET 1 TAB PO (21:29)
[2025-03-24] VITALS (50 sets, daily range): BP systolic 95–149; BP diastolic 49–98; PULSE 72–114; RESP 15–38; TEMP 36.4–36.7; O2SAT 83–98; BMI 20.5
[2025-03-24] MEDS: PIPERCILLIN/TAZO 3.375 GM in 0.9 % SODIUM CHLORIDE 50 ML IV ×4 (03:23→20:31)
[2025-03-24] MEDS: GUAIFENESIN/DEXTROMETHORPHAN 200MG/20MG 10ML UDC 10 ML PO ×2 (05:47→12:28)
[2025-03-24] MEDS: IPRATROPIUM/ALBUTEROL 3 ML NEB IH ×4 (06:20→23:13)
[2025-03-24 06:42] LABS: Hematocrit 34.6 % (42.0-52.0); Hemoglobin 11.3 g/dL (14.1-18.0); Immature Granulocytes % 1.5 %; Mean Corpuscular HGB Conc 32.7 g/dL (31.8-35.4); Mean Corpuscular Hemoglobin 31.8 pg (27.0-31.2); Mean Corpuscular Volume 97.5 fl (80-94); Nucleated Red Blood Cells % 0.1 %; Platelet Count 192 K/mm3 (142-424); Red Blood Count 3.55 M/mm3 (4.60-6.20); Red Cell Distribution Width-SD 51.8 fL; White Blood Count 15.6 K/mm3 (4.8-10.8)
[2025-03-24 06:52] LABS: Alanine Aminotransferase 48 U/L (12-78); Albumin Level 2.7 g/dl (3.5-5.0); Albumin/Globulin Ratio 0.9 (1.1-1.8); Alkaline Phosphatase 92 U/L (38-126); Anion Gap 11.7 mEq/L (5-15); Aspartate Amino Transferase 76 U/L (17-59); Bilirubin,Total 0.5 mg/dl (0.2-1.3); Blood Urea Nitrogen 39 mg/dl (9-20); Calcium 7.7 mg/dl (8.4-10.2); Carbon Dioxide 20 mmol/L (22.0-30.0); Chloride 117 mmol/L (98-107); Creatinine Clearance Estimated 29 mL/min (50-200); Creatinine,Serum 1.60 mg/dl (0.66-1.25); Estimated Glomerular Filt Rate 41 ml/min (>60); GFR (African American) 49 ML/MIN (>60); Globulin 2.9 g/dL (1.3-3.2); Glucose 95 mg/dl (74-100); Potassium 4.7 mmoL/L (3.5-5.1); Sodium 144 mmol/L (136-145); Total Protein,Serum 5.6 g/dl (6.3-8.2)
--- NOTE | 2025-03-24 07:26 | PC.NURSE ---
Attempted ABG 3 times. VBG obtained.
[2025-03-24 07:28] LABS: Lactate Venous 2.1 mmol/L (0.4-2.0); VBG HCO3 21.6 mmol/L (23-30); VBG PCO2 43.0 mmol/L (35-51); VBG PH 7.31 mmol/L (7.31-7.41); VBG PO2 31.7 mmol/L (28-40)
--- NOTE | 2025-03-24 07:46 | XR_ITS ---
PROCEDURE INFORMATION: Exam: XR Chest Exam date and time: 03/24/2025 7:59 AM Age: 89 years old Clinical indication: Shortness of breath; Additional info: SOB TECHNIQUE: Imaging protocol: Radiologic exam of the chest. Views: 1 view. COMPARISON: CT ANGIO CHEST PE PROTOCOL 03/21/2025 5:45 PM FINDINGS: Lungs: Chronic interstitial changes are re-identified. Hazy bilateral pulmonary opacities concerning for superimposed pneumonia. Pleural spaces: Small bilateral pleural effusions Heart/Mediastinum: Unremarkable. No cardiomegaly. Bones/joints: Unremarkable. IMPRESSION: Chronic interstitial changes are re-identified. Hazy bilateral pulmonary opacities concerning for superimposed pneumonia/COPD exacerbation.
[2025-03-24] MEDS: FUROSEMIDE 40MG/4ML VIAL 40 MG IV ×2 (08:10→15:08)
--- NOTE | 2025-03-24 08:15 | PC.NURSE ---
0735 - Pt noted to be more tachy w/ rate increasing to 130's and sat decreasing to mid-high 80's on 5 L NC. Upon entering room pt tachypneic and work of breathing visibly increased. Pt repositioned in bed and, sat increased to 90-92%. Upon assessment coarse crackles noted in bilat lower lobes and exp wheezing throughout. Pt has a persistent hacky cough that is currently non-productive, but states he was coughing up some blood tinged sputum last night. notified of findings and asked to come to bedside for further assessment. 0740 - Dr. Valentino @ bedside assessing pt. New orders placed in computer 0800 - Rad here for CXR 0803 - Pt sat decreased to 78%, pt placed on venti mask @ 15L. Sat increased to 90's and is currently mid to upper 90's. notified of change. Pt resting in bed, work of breathing has lessened and pt verbalizes that he is not as SOA. 0810 - Lasix given per SEP. Pt educated, verbalized understanding. 0830 - Daughter called and was updated on POC. 0835 - Family @ bedside visiting w/ pt
[2025-03-24] MEDS: VANCOMYCIN CONSULT REQUEST 1 EACH NOTAPPLIC (08:30)
[2025-03-24] MEDS: guaiFENesin 600 MG TAB.ER.12H PO ×2 (09:03→20:32)
[2025-03-24] MEDS: ASPIRIN EC 81MG TABLET 81 MG PO (09:03)
[2025-03-24] MEDS: VANCOMYCIN/WATER FOR INJ (PEG) 1.25 GM/250 ML PIGGYBACK IV (09:03)
[2025-03-24 09:05] LABS: C-Reactive Protein 172.6 mg/L (0-4)
[2025-03-24 09:18] LABS: Procalcitonin 28.0 ng/mL (0.0-2.0)
--- NOTE | 2025-03-24 09:30 | PC.NURSE ---
0930 - Venti mask weaned down to 12 L, pt tolerated well. Sat 95-96%
[2025-03-24] MEDS: METHYLPREDNISOLONE SOD SUCC 40MG VIAL 40 MG IV (09:43)
[2025-03-24 10:23] LABS: RBC Morphology Normal; Total Cells Counted 100
--- NOTE | 2025-03-24 11:25 | PC.NURSE ---
Weaned down to 9 L O2 via venti mask @ this time
[2025-03-24 11:28] LABS: Reflex Lactic Add Lactic Reflex
--- NOTE | 2025-03-24 12:18 | PC.NURSE ---
Pt weaned to 5 L O2 via NC to eat lunch, tolerating well.
--- NOTE | 2025-03-24 12:18 | PC.NURSE ---
Pt placed on 6 L O2 via NC to eat lunch, pt tolerating well. Sat 90-92%
[2025-03-24 12:21] LABS: Lactic Acid Follow Up (RFLX 1) 1.3 mmol/L (0.7-2.1)
--- NOTE | 2025-03-24 13:25 | PC.NURSE ---
Pt weaned to 4 L O2 via NC at this time, sat maintaining 95-95%.
[2025-03-24] MEDS: HYDROCODONE/APAP 5/325 MG TABLET 1 TAB PO (14:00)
[2025-03-24 14:32] LABS: Albumin Level 3.1 g/dl (3.5-5.0); Chloride 113 mmol/L (98-107); Sodium 138 mmol/L (136-145)
[2025-03-24 14:33] LABS: Potassium 4.8 mmoL/L (3.5-5.1)
[2025-03-24 14:35] LABS: Alanine Aminotransferase 75 U/L (12-78); Alkaline Phosphatase 86 U/L (38-126); Anion Gap 8.8 mEq/L (5-15); Aspartate Amino Transferase 120 U/L (17-59); Bilirubin,Total 0.4 mg/dl (0.2-1.3); Blood Urea Nitrogen 40 mg/dl (9-20); Carbon Dioxide 21 mmol/L (22.0-30.0); Creatinine Clearance Estimated 31 mL/min (50-200); Creatinine,Serum 1.50 mg/dl (0.66-1.25); Estimated Glomerular Filt Rate 44 ml/min (>60); GFR (African American) 53 ML/MIN (>60)
[2025-03-24 14:36] LABS: Albumin/Globulin Ratio 1.0 (1.1-1.8); Calcium 7.9 mg/dl (8.4-10.2); Globulin 3.1 g/dL (1.3-3.2); Glucose 175 mg/dl (74-100); Total Protein,Serum 6.2 g/dl (6.3-8.2)
[2025-03-24] MEDS: SODIUM CHLORIDE 0.9% 10ML FLUSH SYRINGE 10 ML IV (15:09)
--- NOTE | 2025-03-24 15:40 | PC.NURSE ---
Pt incontinent of BM -linens changed and pt repositioned in bed. Sat decreased to 80% w/ small amount of activity (i.e rolling from side to side in bed). O2 increased to 6 L O2 via NC and sat improved w/in a few minutes to currently 92%. Pt now resting in bed w/ eyes closed. No needs voiced. Call zhao w/in reach. Bed alarm activated.
--- NOTE | 2025-03-24 16:28 | P.PN_ITS ---
Subjective *Date: 03/24/25 *Time: 16:28 Interval history: Patient stated he was having increased work of breathing this morning, improved with diuresis. Continue Zosyn pending final sensitivities. Continue Lasix diuresis. Exam Data for Last 24 hours Vital signs and Labs for Last 24 Hours: Temp Pulse Resp BP Pulse Ox O2 Del Method O2 Flow Rate 97.9 F 82 34 H 115/53 L 93 L Nasal Cannula 6 03/24/25 12:00 03/24/25 16:00 03/24/25 16:00 03/24/25 16:00 03/24/25 16:00 03/24/25 16:00 03/24/25 16:00 FiO2 45 03/23/25 11:30 Laboratory Results - last 24 hr 03/23/25 18:30: PT 10.7, INR 0.96 03/24/25 05:51: WBC 15.6 H, RBC 3.55 L, Hgb 11.3 L, Hct 34.6 L, MCV 97.5 H, MCH 31.8 H, MCHC 32.7, RDW 14.4, Plt Count 192, MPV 10.4, Neut % (Auto) 93.4 H, Lymph % (Auto) 2.6 L, [place] % (Auto) 2.1, Eos % (Auto) 0.0 L, Baso % (Auto) 0.4, Neut # (Auto) 14.6 H, Lymph # (Auto) 0.4 L, [place] # (Auto) 0.3, Eos # (Auto) 0.0, Baso # (Auto) 0.1, Total Counted 100, Neutrophils % (Manual) 94 H, Lymphocytes % (Manual) 4 L, Monocytes % (Manual) 2, Platelet Estimate Normal, RBC Morphology Normal, Sodium 144, Potassium 4.7, Chloride 117 H, Carbon Dioxide 20 L, Anion Gap 11.7, BUN 39 H, Creatinine 1.60 H, Estimated Creat Clear 29, Estimated GFR 41 L, Est GFR ( Amer) 49 L, Glucose 95, Calcium 7.7 L, Total Bilirubin 0.5, AST 76 H D, ALT 48 D, Alkaline Phosphatase 92, C-Reactive Protein 172.6 H, Total Protein 5.6 L, Albumin 2.7 L, Globulin 2.9, Albumin/Globulin Ratio 0.9 L, Procalcitonin 28.0 H 03/24/25 07:27: VBG pH 7.31, VBG pCO2 43.0, VBG pO2 31.7, VBG HCO3 21.6 L, VBG Total CO2 22.9 L, VBG O2 Saturation 64.2, VBG Base Excess -4.4 L, VBG Lactic Acid 2.1 H 03/24/25 12:00: Lactate 1.3 03/24/25 14:00: Sodium 138, Potassium 4.8, Chloride 113 H, Carbon Dioxide 21 L, Anion Gap 8.8, BUN 40 H, Creatinine 1.50 H, Estimated Creat Clear 31, Estimated GFR 44 L, Est GFR ( Amer) 53 L, Glucose 175 H D, Calcium 7.9 L, Total Bilirubin 0.4, AST 120 H D, ALT 75 D, Alkaline Phosphatase 86, Total Protein 6.2 L, Albumin 3.1 L D, Globulin 3.1, Albumin/Globulin Ratio 1.0 L I & O for Last 24 hours: Intake & Output 03/21/25 03/22/25 03/23/25 03/24/25 23:59 23:59 23:59 23:59 Intake Total 2175.417 / 2175.417 4566.835 / 4686.835 1298.287 / 3713.205 8960 / 1252 Output Total 650 / 650 1250 / 1250 730 / 730 2665 / 2665 Balance 1525.417 / 8349.173 0847.835 / 3436.835 568.287 / 790.287 -1413 / -1413 Weight 65.635 kg 65.635 kg 69.763 kg 66.361 kg Microbiology Reports for the Last 24 Hours: Microbiology 03/21/25 16:56 Blood Blood Culture - Preliminary 03/22/25 09:08 Sputum - Expectorated Sputum Gram Stain - Final 03/22/25 09:08 Sputum - Expectorated Sputum Sputum Culture - Preliminary 03/21/25 16:50 Blood Blood Culture - Preliminary NO GROWTH AFTER 48 HOURS Constitutional Constitutional: mild distress and chronically ill appearing *Routine HEENT Exam Head: Present normocephalic Eye: Present EOMI and PERRL ENT: Present mucous membranes moist *Routine Neck Exam Neck: Present supple; Absent lymphadenopathy *Routine Respiratory Exam Respiratory: Present crackles; Absent CTA bilaterally *Routine Cardiovascular Exam Cardiovascular: Present RRR *Routine Abdominal Exam Abdominal: Present soft and normoactive bowel sounds; Absent tenderness *Routine Extremities Exam Extremities: Absent cyanosis, clubbing or edema *Routine Skin Exam Skin: Present warm; Absent rash *Routine Neurological Exam Neurological: Present alert and oriented X3 Assessment and Plan *Assessment and plan (1) Pneumonia: Status: Acute Category: Medical Code(s): J18.9 - Pneumonia, unspecified organism (2) CAD (coronary artery disease): Status: Acute Category: Medical Code(s): I25.10 - Atherosclerotic heart disease of [place] coronary artery without angina pectoris Plan Buster Berman is a 89-year-old male who presented with shortness of breath and was admitted with acute hypoxic respiratory failure from community-acquired pneumonia with septic shock. #Acute hypoxic respiratory failure #Community-acquired pneumonia #Strep pneumonia bacteremia #Septic shock, resolved #Sepsis ? Presented with shortness of breath, CTA chest 03/21/2025 showing bibasilar pneumonia. ? Blood culture growing strep pneumonia, sensitivities pending. Call lab today, plate growing multiple organisms possibly at the same strep. ? Patient was having increased work of breathing this morning, requiring nonrebreather 15 L. Given IV Lasix 40 mg, Solu-Medrol 40 mg with improvement in symptoms. Patient is diuresing well. ? WBC bumped slightly from 14.2-15.6, however procalcitonin down from 49-28 and CRP down from 307-172. Continues to be tachypneic 20s to 30s. ? Levophed discontinued on 03/23/2025. ? Continue Zosyn 3.375 mg every 6 hours. Continue to renally dose. Appreciate pulmonology recommendations. ? Given one-time dose of vancomycin today, discontinued after improvement with Lasix. ? Continue Lasix as below. ? Weaned to 6 L nasal cannula. Continue wean as tolerated. Baseline room air. ? Follow-up final sputum, blood cultures with sensitivities. ? Follow-up morning CBC, CMP. ? Patient is interested in strep pneumonia vaccination after discharge. #Suspected heart failure exacerbation ? Initial BNP 7180, ECHO pending. Volume overload likely contributing to hypoxic respiratory failure especially with pneumonia. ? Continue IV Lasix 40 mg twice daily. ? Follow-up morning CMP, magnesium. #MORE on CKD ? Initial creatinine 3.0, improving to 1.5 after diuresis. ? Follow-up morning RFT's. #CAD #NSTEMI type II #Severe coronary calcification ? Coronary calcification evidenced by CTA chest. Troponins peaked at 0.08, improved to 0.03. No chest pain. Likely NSTEMI type II in the setting of septic shock. ? Started aspirin 81 mg. Hold statin due to sepsis. DNR/DNI DVT prophylaxis: Lovenox 30 mg
[2025-03-24 17:02] LABS: MRSA DNA PCR Negative (Negative)
--- NOTE | 2025-03-24 18:36 | PC.NURSE ---
1715 - Urostomy noted to be leaking around site. Stoma cleaned and site re-dressed. Pt was able to assist staff w/ task. Linens and gown changed. Pt incontinent of stool again, attends change. Pt repositioned and turned to side. Currently resting in bed w/ eyes closed. POC ongoing.
[2025-03-25] VITALS (46 sets, daily range): BP systolic 106–137; BP diastolic 50–105; PULSE 68–100; RESP 17–39; TEMP 36–37.2; O2SAT 85–100; BMI 20.2
--- NOTE | 2025-03-25 01:58 | PC.NURSE ---
pts O2 weaned to 2L NC at this time. O2 sat 96%.
[2025-03-25] MEDS: PIPERCILLIN/TAZO 3.375 GM in 0.9 % SODIUM CHLORIDE 50 ML IV ×4 (05:00→20:33)
--- NOTE | 2025-03-25 05:32 | PC.NURSE ---
Pts O2 was titrated between 5-6L NC this shift. Pt is currently on 5L NC and tolerating well. O2 sat 94%. Pt asleep. Pt was given IS and has used it multiple times this shift. Pt has been tachypneic with rate in 20's but does not appear to be in distress. Pt does not c/o SOA. Sinus rhythm and sinus arrhythmia noted on tele. Urostomy leaked and Pt was cleaned, sheets changed and urostomy changed. 650ml clear/pale urine drained. 2 unmeasured voids counted for urostomy leaking. Pt has had no complaints this shift, other than not being able to cough up sputum. Call light in reach.
[2025-03-25] MEDS: IPRATROPIUM/ALBUTEROL 3 ML NEB IH ×4 (06:20→21:33)
[2025-03-25 06:33] LABS: Hematocrit 37.3 % (42.0-52.0); Hemoglobin 12.0 g/dL (14.1-18.0); Immature Granulocytes % 6.4 %; Mean Corpuscular HGB Conc 32.2 g/dL (31.8-35.4); Mean Corpuscular Hemoglobin 31.5 pg (27.0-31.2); Mean Corpuscular Volume 97.9 fl (80-94); Nucleated Red Blood Cells % 0.4 %; Platelet Count 181 K/mm3 (142-424); Red Blood Count 3.81 M/mm3 (4.60-6.20); Red Cell Distribution Width-SD 52.4 fL; White Blood Count 13.1 K/mm3 (4.8-10.8)
[2025-03-25 06:53] LABS: Alanine Aminotransferase 84 U/L (12-78); Albumin Level 3.0 g/dl (3.5-5.0); Albumin/Globulin Ratio 1.0 (1.1-1.8); Alkaline Phosphatase 80 U/L (38-126); Anion Gap 11.7 mEq/L (5-15); Aspartate Amino Transferase 82 U/L (17-59); Bilirubin,Total 0.3 mg/dl (0.2-1.3); Blood Urea Nitrogen 48 mg/dl (9-20); Calcium 8.1 mg/dl (8.4-10.2); Carbon Dioxide 26 mmol/L (22.0-30.0); Chloride 105 mmol/L (98-107); Creatinine Clearance Estimated 27 mL/min (50-200); Creatinine,Serum 1.70 mg/dl (0.66-1.25); Estimated Glomerular Filt Rate 38 ml/min (>60); GFR (African American) 46 ML/MIN (>60); Globulin 3.0 g/dL (1.3-3.2); Glucose 87 mg/dl (74-100); Magnesium 1.6 mg/dl (1.6-2.3); Potassium 4.7 mmoL/L (3.5-5.1); Sodium 138 mmol/L (136-145); Total Protein,Serum 6.0 g/dl (6.3-8.2)
[2025-03-25 06:57] LABS: Total Cells Counted 100
[2025-03-25 06:58] LABS: C-Reactive Protein 75.3 mg/L (0-4); RBC Morphology Normal
[2025-03-25 07:09] LABS: Procalcitonin 18.3 ng/mL (0.0-2.0)
--- NOTE | 2025-03-25 07:09 | PC.NURSE ---
pt had 3 loose bowel movements this shift
[2025-03-25] MEDS: ASPIRIN EC 81MG TABLET 81 MG PO (08:37)
[2025-03-25] MEDS: guaiFENesin 600 MG TAB.ER.12H PO ×2 (09:37→20:33)
--- NOTE | 2025-03-25 15:12 | EXP.ACUTE.PN ---
Subjective *Date: 03/25/25 *Time: 15:18 Interval history: Patient still quite dyspneic on exam today. Denies nausea or vomiting. Requiring 6 L oxygen. Remains tachypneic. White count still elevated. Tolerating breakfast on exam. Kidney function abnormal today with creatinine 1.7, BUN 48. Family at bedside after morning rounds. Patient quite fatigued Medical Exam Vital signs and Labs for Last 24 Hours: Vital Signs Temp Pulse Resp BP Pulse Ox O2 Del Method O2 Flow Rate 03/25/25 15:00 Nasal Cannula 6 03/25/25 15:00 90 25 H 116/71 86 L Nasal Cannula 6 03/25/25 14:00 87 29 H 126/66 92 L Nasal Cannula 6 03/25/25 14:00 83 30 H 126/66 93 L Nasal Cannula 5 03/25/25 13:00 82 29 H 115/62 93 L Nasal Cannula 5 03/25/25 12:59 Nasal Cannula 5 03/25/25 12:43 86 03/25/25 12:43 87 03/25/25 12:43 95 Nasal Cannula 03/25/25 12:00 92 L Nasal Cannula 6 03/25/25 12:00 82 03/25/25 12:00 97.4 F L 82 32 H 120/58 L 91 L Nasal Cannula 03/25/25 11:00 89 36 H 116/53 L 92 L Nasal Cannula 03/25/25 11:00 93 L Nasal Cannula 6 03/25/25 11:00 Nasal Cannula 6 03/25/25 10:00 85 21 117/57 L 91 L Nasal Cannula 03/25/25 09:00 Nasal Cannula 03/25/25 09:00 80 27 H 109/60 L 91 L Nasal Cannula 03/25/25 08:00 96 Nasal Cannula 03/25/25 08:00 93 L Nasal Cannula 03/25/25 08:00 84 03/25/25 08:00 96.8 F L 87 29 H 113/62 96 Nasal Cannula 03/25/25 07:06 90 25 H 123/56 L 89 L Nasal Cannula 03/25/25 07:00 Nasal Cannula 6 03/25/25 06:20 86 03/25/25 06:20 86 20 03/25/25 06:20 89 03/25/25 06:20 90 L Nasal Cannula 6 03/25/25 06:01 130/66 03/25/25 06:00 72 17 87 L 03/25/25 05:00 76 25 H 131/69 100 Nasal Cannula 5 03/25/25 05:00 Nasal Cannula 5 03/25/25 04:31 73 22 129/60 99 Nasal Cannula 5 03/25/25 04:16 69 03/25/25 04:01 70 22 121/61 94 L Nasal Cannula 6 03/25/25 04:00 Nasal Cannula 5 03/25/25 04:00 97.6 F 03/25/25 03:32 77 19 137/76 93 L Nasal Cannula 6 03/25/25 03:01 73 31 H 120/54 L 93 L 03/25/25 03:00 Nasal Cannula 5 03/25/25 02:30 68 31 H 117/63 92 L Nasal Cannula 5 03/25/25 02:00 71 29 H 129/62 96 Nasal Cannula 5 03/25/25 01:30 80 25 H 120/59 L 97 Nasal Cannula 6 03/25/25 01:00 81 28 H 122/61 96 Nasal Cannula 6 03/25/25 01:00 Nasal Cannula 6 03/25/25 00:30 71 28 H 128/60 97 Nasal Cannula 6 03/25/25 00:02 85 18 120/65 91 L Nasal Cannula 6 03/25/25 00:00 76 03/25/25 00:00 Nasal Cannula 6 03/24/25 23:30 78 28 H 112/57 L 94 L Nasal Cannula 6 03/24/25 23:14 78 03/24/25 23:14 81 03/24/25 23:00 81 26 H 95/51 L 88 L Nasal Cannula 6 03/24/25 23:00 Nasal Cannula 6 03/24/25 22:45 75 25 H 113/52 L 95 Nasal Cannula 6 03/24/25 22:30 74 25 H 112/56 L 95 Nasal Cannula 6 03/24/25 22:16 84 27 H 127/59 L 98 Nasal Cannula 6 03/24/25 22:00 80 28 H 118/66 96 Nasal Cannula 6 03/24/25 21:45 72 27 H 115/54 L 97 Nasal Cannula 6 03/24/25 21:30 79 29 H 114/59 L 97 Nasal Cannula 6 03/24/25 21:16 80 28 H 125/63 98 Nasal Cannula 6 03/24/25 21:00 85 28 H 135/65 95 Nasal Cannula 6 03/24/25 20:54 Nasal Cannula 6 03/24/25 20:45 88 31 H 133/63 95 Nasal Cannula 6 03/24/25 20:30 84 28 H 123/59 L 95 Nasal Cannula 6 03/24/25 20:15 82 29 H 135/56 L 94 L Nasal Cannula 6 03/24/25 20:00 76 30 H 126/64 95 Nasal Cannula 6 03/24/25 20:00 99 H 03/24/25 19:47 87 30 H 98/81 L 93 L Nasal Cannula 6 03/24/25 19:34 Nasal Cannula 6 03/24/25 19:31 91 H 32 H 130/63 93 L Nasal Cannula 6 03/24/25 19:15 81 29 H 118/54 L 94 L Nasal Cannula 6 03/24/25 19:00 85 28 H 125/59 L 94 L Nasal Cannula 6 03/24/25 18:48 95 Nasal Cannula 6 03/24/25 18:48 85 03/24/25 18:48 85 03/24/25 18:48 88 03/24/25 18:40 Nasal Cannula 6 03/24/25 18:00 82 31 H 111/59 L 95 Nasal Cannula 6 03/24/25 17:00 89 17 132/58 L 91 L Nasal Cannula 6 03/24/25 17:00 Nasal Cannula 6 03/24/25 16:29 97.8 F 89 34 H 118/52 L 92 L Nasal Cannula 6 03/24/25 16:00 82 34 H 115/53 L 93 L Nasal Cannula 6 03/24/25 16:00 81 03/24/25 15:55 94 L Nasal Cannula 6 Intake and Output 03/24/25 03/25/25 03/25/25 23:59 07:59 15:59 Intake Total 440 / 1642 50 / 410 360 / 410 Output Total 800 / 3565 750 / 1605 855 / 1605 Balance -360 / -1923 -700 / -1195 -495 / -1195 Intake: Intake, Oral Amount 340 / 1192 310 / 310 Intake, Total IV Amount 100 / 450 50 / 100 50 / 100 Pipercillin/Tazo 3.375 gm In 0. 100 / 200 50 / 100 50 / 100 9 % Sodium Chloride 50 ml @ 100 mls/hr IV Q6H [facility] Rx#:[id number] Output: Output, Urine Amount 800 / 3565 750 / 1605 855 / 1605 Other: Number of Unmeasured Voids 0 0 0 Number of Bowel Movements 1 1 1 Weight 65.544 kg Patient Weight 03/25/25 23:59 Weight 65.544 kg Laboratory Results - last 24 hr 03/22/25 08:36: MRSA (PCR) Negative 03/25/25 05:21: WBC 13.1 H, RBC 3.81 L, Hgb 12.0 L, Hct 37.3 L, MCV 97.9 H, MCH 31.5 H, MCHC 32.2, RDW 14.4, Plt Count 181, MPV 10.2, Neut % (Auto) 84.6 H, Lymph % (Auto) 3.8 L, [place] % (Auto) 4.6, Eos % (Auto) 0.1, Baso % (Auto) 0.5, Neut # (Auto) 11.1 H, Lymph # (Auto) 0.5 L, [place] # (Auto) 0.6, Eos # (Auto) 0.0, Baso # (Auto) 0.1, Total Counted 100, Neutrophils % (Manual) 87 H, Band Neutrophils % 4.0, Lymphocytes % (Manual) 6 L, Monocytes % (Manual) 1 L, Metamyelocytes % 1.0, Myelocytes % 1, Platelet Estimate Normal, RBC Morphology Normal, Sodium 138, Potassium 4.7, Chloride 105, Carbon Dioxide 26, Anion Gap 11.7, BUN 48 H, Creatinine 1.70 H, Estimated Creat Clear 27, Estimated GFR 38 L, Est GFR ( Amer) 46 L, Glucose 87 D, Calcium 8.1 L, Magnesium 1.6, Total Bilirubin 0.3, AST 82 H D, ALT 84 H, Alkaline Phosphatase 80, C-Reactive Protein 75.3 H D, Total Protein 6.0 L, Albumin 3.0 L, Globulin 3.0, Albumin/Globulin Ratio 1.0 L, Procalcitonin 18.3 H I & O for Labs for Last 24 Hours: Intake & Output 03/22/25 03/23/25 03/24/25 03/25/25 23:59 23:59 23:59 23:59 Intake Total 4566.835 / 4686.835 1298.287 / 3710.609 2992 / 1642 410 / 410 Output Total 1250 / 1250 730 / 730 3465 / 3565 1605 / 1605 Balance 3316.835 / 3436.835 568.287 / 790.287 -1823 / -1923 -1195 / -1195 Weight 65.635 kg 69.763 kg 66.361 kg 65.544 kg Microbiology Reports for the Last 24 Hours: Microbiology 03/22/25 09:08 Sputum - Expectorated Sputum Gram Stain - Final 03/22/25 09:08 Sputum - Expectorated Sputum Sputum Culture - Final 03/21/25 16:56 Blood Blood Culture - Preliminary Constitutional: Present moderate distress, thin, chronically ill appearing and cooperative Head: Present atraumatic and normocephalic ENT: Present normal exam Respiratory: Present prolonged expiratory phase, respiratory distress, rhonchi and crackles; Absent wheezes Cardiac: Present Reg Rate and Rhythm GI: Present soft; Absent distention or tenderness Extremities: Absent tenderness or edema Skin: Present intact; Absent erythema Neuro: Present Grossly Intact, alert, awake, oriented x 3 and moves all extremities Assessment and Plan *Assessment and plan (1) CAD (coronary artery disease): Status: Acute Category: Medical Code(s): I25.10 - Atherosclerotic heart disease of [place] coronary artery without angina pectoris (2) Sepsis: Status: Acute Qualifiers: Acute respiratory failure type: with hypoxia Sepsis acute organ dysfunction status: with acute organ dysfunction Sepsis type: sepsis due to unspecified organism Severe sepsis acute organ dysfunction type: acute respiratory failure Severe sepsis shock status: with septic shock Qualified Code(s): A41.9 - Sepsis, unspecified organism; R65.21 - Severe sepsis with septic shock; J96.01 - Acute respiratory failure with hypoxia Category: Medical Code(s): A41.9 - Sepsis, unspecified organism (3) Septic shock: Status: Resolved Category: Medical Code(s): A41.9 - Sepsis, unspecified organism; R65.21 - Severe sepsis with septic shock (4) Non-ST elevation [place] (NSTEMI): Status: Acute Category: Medical Code(s): I21.4 - Non-ST elevation (NSTEMI) myocardial infarction (5) MORE (acute kidney injury): Status: Acute Category: Medical Code(s): N17.9 - Acute kidney failure, unspecified (6) Multifocal pneumonia: Status: Acute Category: Medical Code(s): J18.8 - Other pneumonia, unspecified organism (7) Bacteremia due to Streptococcus pneumoniae: Status: Acute Category: Medical Code(s): R78.81 - Bacteremia; B95.3 - Streptococcus pneumoniae as the cause of diseases classified elsewhere (8) Acute hypoxic respiratory failure: Status: Acute Category: Medical Code(s): J96.01 - Acute respiratory failure with hypoxia Plan Buster Berman is a 89-year-old male who presented with shortness of breath and was admitted with acute hypoxic respiratory failure from community-acquired pneumonia with septic shock. Found to be bacteremic with Streptococcus pneumoniae. As well found to have type II NSTEMI from stress of shock, bacteremia, pneumonia.. #Acute hypoxic respiratory failure #Community-acquired pneumonia #Strep pneumonia bacteremia #Septic shock, resolved #Sepsis ? Presented with shortness of breath, CTA chest 03/21/2025 showing bibasilar pneumonia. ? Blood culture growing strep pneumonia, sensitivities pending. Sputum with gram-positive cocci, suspect this will also be strep given his bacteremia ? Continues to have dyspnea. On 6 L oxygen today. Increase DuoNebs to every 4 hours scheduled, albuterol as needed for breakthrough dyspnea every 6 hours. ? WBC improved to 13, hemoglobin 12. Procalcitonin improved to 18 down from 49 on admission. CRP 75, down from 307 on admission. ? Levophed discontinued on 03/23/2025. ? Continue Zosyn 3.375 mg every 6 hours. Continue to renally dose. Appreciate pulmonology recommendations. ? Weaned to 6 L nasal cannula. Continue wean as tolerated for goal sats greater than 90%. baseline room air. ? Follow-up final sputum, blood cultures with sensitivities. ? Patient is interested in strep pneumonia vaccination at discharge. #Suspected heart failure exacerbation ? Initial BNP 7180, ECHO pending. Volume overload likely contributing to hypoxic respiratory failure especially with pneumonia. ? Continue IV Lasix 40 mg once daily. - Potassium 4.7. #MORE on CKD ? Initial creatinine 3.0, improved to 1.5 after diuresis. Increased to 1.7 today. BUN 48. Repeat CBC, CMP, magnesium ordered for the morning. Decrease Lasix to once daily for now. Consider further diuresis tomorrow. #CAD #NSTEMI type II #Severe coronary calcification ? Coronary calcification evidenced by CTA chest. Troponins peaked at 0.08, improved to 0.03. No chest pain. Likely NSTEMI type II in the setting of septic shock/strep bacteremia. ? Continueaspirin 81 mg. Hold statin due to sepsis. DNR/DNI DVT prophylaxis: Lovenox 30 mg ICU/Critical care attestation This patient is critically ill with 35 minutes devoted solely to this patient managing life/organ supporting interventions that required physician assessment. This includes time spent making adjustments in ventilator settings, IV fluid administration, titration of pressors, adjustments of medications, discussion of patient with consultants and other care providers as well as updating patient and/or family (if patient by virtue of his/her condition is unable to participate in decision making). This does not include time spent performing separately billed procedures. Time is not concurrent with that of other providers.
[2025-03-25] MEDS: ALBUTEROL 0.083% 2.5 MG/3 ML NEB IH (15:33)
--- NOTE | 2025-03-25 16:36 | PC.NURSE ---
Patients oxygen is continuing to fall down in the high 80s with nasal cannula in his nose at 6 liters. Pts son shaved him and while patient was getting shaved nasal cannula was resting on patients lips and patients oxygen was 93-95. Patient is a mouth breather. At this time patient oxygen is resting on his lips and his oxygen is 93-95 and patient is on 4 liters
[2025-03-25] MEDS: GUAIFENESIN/DEXTROMETHORPHAN 200MG/20MG 10ML UDC 10 ML PO (17:25)
[2025-03-26] VITALS (36 sets, daily range): BP systolic 104–133; BP diastolic 51–83; PULSE 83–107; RESP 19–40; TEMP 36.6–37.3; O2SAT 85–100; BMI 20.2
[2025-03-26] MEDS: IPRATROPIUM/ALBUTEROL 3 ML NEB IH ×6 (01:57→21:14)
[2025-03-26] MEDS: PIPERCILLIN/TAZO 3.375 GM in 0.9 % SODIUM CHLORIDE 50 ML IV ×2 (02:39→08:30)
[2025-03-26 05:39] LABS: Alanine Aminotransferase 107 U/L (12-78); Albumin Level 2.9 g/dl (3.5-5.0); Albumin/Globulin Ratio 1.0 (1.1-1.8); Alkaline Phosphatase 76 U/L (38-126); Anion Gap 8.2 mEq/L (5-15); Aspartate Amino Transferase 100 U/L (17-59); Bilirubin,Total 0.4 mg/dl (0.2-1.3); Blood Urea Nitrogen 37 mg/dl (9-20); Calcium 8.2 mg/dl (8.4-10.2); Carbon Dioxide 27 mmol/L (22.0-30.0); Chloride 106 mmol/L (98-107); Creatinine Clearance Estimated 33 mL/min (50-200); Creatinine,Serum 1.40 mg/dl (0.66-1.25); Estimated Glomerular Filt Rate 48 ml/min (>60); GFR (African American) 58 ML/MIN (>60); Globulin 3.0 g/dL (1.3-3.2); Glucose 101 mg/dl (74-100); Potassium 4.2 mmoL/L (3.5-5.1); Sodium 137 mmol/L (136-145); Total Protein,Serum 5.9 g/dl (6.3-8.2)
[2025-03-26 05:40] LABS: Hematocrit 38.9 % (42.0-52.0); Hemoglobin 12.9 g/dL (14.1-18.0); Immature Granulocytes % 6.7 %; Mean Corpuscular HGB Conc 33.2 g/dL (31.8-35.4); Mean Corpuscular Hemoglobin 31.9 pg (27.0-31.2); Mean Corpuscular Volume 96.0 fl (80-94); Nucleated Red Blood Cells % 0.3 %; Platelet Count 215 K/mm3 (142-424); Red Blood Count 4.05 M/mm3 (4.60-6.20); Red Cell Distribution Width-SD 50.3 fL; White Blood Count 14.0 K/mm3 (4.8-10.8)
[2025-03-26 05:41] LABS: Magnesium 1.6 mg/dl (1.6-2.3)
--- NOTE | 2025-03-26 06:00 | CA_ITS ---
APPROVED REPORT EXAM: Comprehensive 2D, Doppler, and color-flow Echocardiogram Janitor: RAMONA Steel, RVS Ht: 5 ft 10 in Wt: 144lbs BSA: 1.82 BP: 116/71 mmHg Indications: CHF, Pneumonia, Sepsis, MORE, CAD, COPD, SMOKER 2D Dimensions IVSd 0.77 cm M: 0.6-1.2 LVEF (Visual) 69.40 % PWd 1.08 cm M: 0.6 - 1.2 LA Volume 23.10 mL LVDd 4.15 cm M: 4.2 - 5.9 LA Volume Index 12.550013 mL/m2 (M/F) 16-34 LVDs 2.55 cm M: 2.5 - 4.0 EF AP4 55.50 % Left Atrium 2.73 cm M: 3.0 - 4.0 GL Strain -22.4 % Ascending Aorta 3.35 cm M: 2.6 - 3.4 M-Mode Dimensions RVDd 1.37 cm (0.9-2.6) LA Diam 2.36 cm (1.9-4.0) LVDd 4.48 cm (3.5-5.7) LVDs 2.88 cm (3.5-5.7) IVSd 0.68 cm (0.6-1.1) PWd 0.76 cm (0.6-1.1) EF (Teich) 65.40% EPSs 0.29 cm FS 35.70% EDV (Teich) 91.50 mL TAPSE 1.87 (<1.7) ESV (Teich) 31.70 mL LV Diastology E Decel Time 230 (160-240 msec) E/A Ratio 0.67 MED A' 13.10 cm/s LAT A' 13.00 cm/s Aortic Valve CATHLEEN Index 1.62 cm2/m2 AoV Peak Moe. 120.0 (50-130 cm/s) AO Peak GR. 5.80 mmHg AO Mean GR. 2.90 (<5 mmHg) AO VTI 21.3 (18-25 cm) CATHLEEN (VTI) 3.02 (2.5-4.5 cm2) Mitral Valve MV A Velocity 81.0 (40-130 cm/s) E/A Ratio 0.67 Left Ventricle The left ventricle is normal size. Left ventricular systolic function is normal. The left ventricular ejection fraction is within the normal range. Proximal septal thickening is present. There is normal LV segmental wall motion. The left ventricular diastolic function is normal. LVEF is 60%. Right Ventricle The right ventricle is mildly to moderately dilated. The right ventricular systolic function is mildly reduced. Atria The left atrium size is normal. The right atrium size is normal. The interatrial septum is not well-visualized. Aortic Valve The aortic valve is mildly thickened. There is no hemodynamically significant aortic valvular stenosis. No aortic regurgitation is present. Mitral Valve The mitral valve is normal in structure. No evidence of mitral valve stenosis. Trace mitral regurgitation is present. Tricuspid Valve The tricuspid valve leaflets are thin and pliable. Trace tricuspid regurgitation. There is insufficient TR jet to estimate RVSP. Pulmonic Valve The pulmonary valve is grossly normal in structure. Trace pulmonic valve regurgitation is present. Great Vessels The aortic root is normal in size. IVC is normal in size and collapses >50% with inspiration. Pericardium There is no pericardial effusion. Other Information Study Quality: Technically Difficult Conclusion Technically difficult study. Normal LV systolic function. Mild to moderate RV dilation with mild reduction in RV function. No significant valvular stenosis or regurgitation. Electronically signed by : Juhi Martinez MD 03/26/2025 12:22:25
[2025-03-26 06:20] LABS: RBC Morphology Normal; Total Cells Counted 100
[2025-03-26] MEDS: GUAIFENESIN/DEXTROMETHORPHAN 200MG/20MG 10ML UDC 10 ML PO (07:25)
--- NOTE | 2025-03-26 07:49 | XR_ITS ---
FINAL REPORT CLINICAL HISTORY: increased O2 requirement COMPARISON: 03/24/2025 FINDINGS: The heart size is normal. The mediastinum is normal. Left greater than right patchy bibasilar airspace infiltrates are probably due to acute pneumonia. There are no pleural effusions. There is no pneumothorax. There is no osseous abnormality. Surgical clips present in the left hemithorax. IMPRESSION: Probable acute pneumonia. Reviewed, Interpreted and Dictated by Dirk Smith MD Transcribed by Alie Crandall Authenticated and [facility]
--- NOTE | 2025-03-26 07:51 | EXP.PHA.PN ---
Subjective *Date: 03/26/25 *Time: 07:51 Medical Exam Vital signs and Labs for Last 24 Hours: Vital Signs Temp Pulse Resp BP Pulse Ox O2 Del Method O2 Flow Rate 03/26/25 07:00 84 29 H 115/59 L 97 Vapotherm 03/26/25 06:47 Vapotherm 30 03/26/25 06:14 88 22 03/26/25 06:14 92 H 03/26/25 06:14 88 03/26/25 06:14 95 Vapotherm 03/26/25 06:00 86 32 H 115/60 98 Vapotherm 30 03/26/25 05:00 85 35 H 116/54 L 93 L Vapotherm 30 03/26/25 05:00 Vapotherm 30 03/26/25 04:00 98.4 F 91 H 28 H 124/61 91 L Vapotherm 30 03/26/25 04:00 96 Vapotherm 30 03/26/25 04:00 86 03/26/25 03:00 92 H 28 H 116/63 98 Vapotherm 30 03/26/25 03:00 Vapotherm 03/26/25 02:20 96 H 03/26/25 02:05 94 H 03/26/25 02:00 98.4 F 92 H 27 H 118/67 100 Vapotherm 03/26/25 01:00 90 36 H 116/59 L 97 Vapotherm 03/26/25 01:00 Vapotherm 30 03/26/25 00:15 96 H 19 95 Vapotherm 30 03/26/25 00:01 107 H 27 H 133/70 85 L Nasal Cannula 03/26/25 00:00 95 Vapotherm 30 03/26/25 00:00 98.9 F 03/26/25 00:00 98 Vapotherm 03/26/25 00:00 89 03/25/25 23:00 98.9 F 90 30 H 111/53 L 94 L Nasal Cannula 6 03/25/25 23:00 Nasal Cannula 6 03/25/25 22:00 96 H 31 H 123/55 L 91 L Nasal Cannula 6 03/25/25 21:47 94 H 03/25/25 21:46 91 H 03/25/25 21:00 92 H 35 H 106/58 L 93 L Nasal Cannula 5 03/25/25 21:00 Nasal Cannula 5 03/25/25 20:00 98.9 F 86 36 H 120/61 95 Nasal Cannula 5 03/25/25 20:00 89 03/25/25 19:28 95 Nasal Cannula 5 03/25/25 19:00 95 H 35 H 119/50 L 93 L Nasal Cannula 4 03/25/25 19:00 93 H 28 H 119/50 L 93 L Nasal Cannula 4 03/25/25 18:53 Nasal Cannula 4 03/25/25 18:53 Nasal Cannula 4 03/25/25 18:52 93 H 03/25/25 18:51 87 03/25/25 18:00 92 H 39 H 117/61 93 L Nasal Cannula 4 03/25/25 18:00 117/61 03/25/25 17:45 88 32 H 92 L 03/25/25 17:30 94 H 32 H 89 L 03/25/25 17:15 100 H 35 H 88 L 03/25/25 17:01 90 36 H 92 L 03/25/25 17:00 90 25 H 133/105 H 92 L Nasal Cannula 4 03/25/25 17:00 Nasal Cannula 4 03/25/25 17:00 91 H 30 H 115/59 L 93 L Nasal Cannula 4 03/25/25 16:03 97.4 F L 91 H 26 H 115/64 85 L Nasal Cannula 6 03/25/25 16:00 91 L Nasal Cannula 6 03/25/25 16:00 94 L Nasal Cannula 5 03/25/25 16:00 88 30 H 115/64 93 L Nasal Cannula 6 03/25/25 16:00 86 03/25/25 15:33 88 03/25/25 15:33 88 03/25/25 15:00 Nasal Cannula 6 03/25/25 15:00 90 25 H 116/71 86 L Nasal Cannula 6 03/25/25 14:00 87 29 H 126/66 92 L Nasal Cannula 6 03/25/25 14:00 83 30 H 126/66 93 L Nasal Cannula 5 03/25/25 13:00 82 29 H 115/62 93 L Nasal Cannula 5 03/25/25 12:59 Nasal Cannula 5 03/25/25 12:43 86 03/25/25 12:43 87 03/25/25 12:43 95 Nasal Cannula 5 03/25/25 12:00 92 L Nasal Cannula 6 03/25/25 12:00 82 03/25/25 12:00 97.4 F L 82 32 H 120/58 L 91 L Nasal Cannula 6 03/25/25 11:00 89 36 H 116/53 L 92 L Nasal Cannula 6 03/25/25 11:00 93 L Nasal Cannula 6 03/25/25 11:00 Nasal Cannula 6 03/25/25 10:00 85 21 117/57 L 91 L Nasal Cannula 6 03/25/25 09:00 Nasal Cannula 6 03/25/25 09:00 80 27 H 109/60 L 91 L Nasal Cannula 6 03/25/25 08:00 96 Nasal Cannula 6 03/25/25 08:00 93 L Nasal Cannula 6 03/25/25 08:00 84 03/25/25 08:00 96.8 F L 87 29 H 113/62 96 Nasal Cannula 6 [facility] 03/26/25 07:00 03/26/25 06:47 03/26/25 06:14 03/26/25 06:14 03/26/25 06:14 03/26/25 06:14 03/26/25 06:00 03/26/25 05:00 03/26/25 05:00 03/26/25 04:00 03/26/25 04:00 03/26/25 04:00 03/26/25 03:00 03/26/25 03:00 03/26/25 02:20 03/26/25 02:05 03/26/25 02:00 03/26/25 01:00 03/26/25 01:00 03/26/25 00:15 03/26/25 00:01 03/26/25 00:00 03/26/25 00:00 03/26/25 00:00 03/26/25 00:00 03/25/25 23:00 03/25/25 23:00 03/25/25 22:00 03/25/25 21:47 03/25/25 21:46 03/25/25 21:00 03/25/25 21:00 03/25/25 20:00 03/25/25 20:00 03/25/25 19:28 03/25/25 19:00 03/25/25 19:00 03/25/25 18:53 03/25/25 18:53 03/25/25 18:52 03/25/25 18:51 03/25/25 18:00 03/25/25 18:00 03/25/25 17:45 03/25/25 17:30 03/25/25 17:15 03/25/25 17:01 03/25/25 17:00 03/25/25 17:00 03/25/25 17:00 03/25/25 16:03 03/25/25 16:00 03/25/25 16:00 03/25/25 16:00 03/25/25 16:00 03/25/25 15:33 03/25/25 15:33 03/25/25 15:00 03/25/25 15:00 03/25/25 14:00 03/25/25 14:00 03/25/25 13:00 03/25/25 12:59 03/25/25 12:43 03/25/25 12:43 03/25/25 12:43 03/25/25 12:00 03/25/25 12:00 03/25/25 12:00 03/25/25 11:00 03/25/25 11:00 03/25/25 11:00 03/25/25 10:00 03/25/25 09:00 03/25/25 09:00 03/25/25 08:00 03/25/25 08:00 03/25/25 08:00 03/25/25 08:00 Intake and Output 03/25/25 03/25/25 03/26/25 15:59 23:59 07:59 Intake Total 410 / 1106 646 / 1106 50 / 50 Output Total 855 / 2355 450 / 2355 775 / 775 Balance -445 / -1249 196 / -1249 -725 / -725 Intake: Intake, Oral Amount 310 / 906 596 / 906 0 / 0 Intake, Total IV Amount 100 / 200 50 / 200 50 / 50 Pipercillin/Tazo 3.375 gm In 0. 100 / 200 50 / 200 50 / 50 9 % Sodium Chloride 50 ml @ 100 mls/hr IV Q6H [facility] Rx#:[id number] Output: Output, Urine Amount 855 / 2355 450 / 2355 775 / 775 Other: Number of Unmeasured Voids 0 0 Number of Bowel Movements 1 Weight 65.54 kg Patient Weight 03/26/25 23:59 Weight 65.54 kg Laboratory Results - last 24 hr 03/26/25 04:40: WBC 14.0 H, RBC 4.05 L, Hgb 12.9 L, Hct 38.9 L, MCV 96.0 H, MCH 31.9 H, MCHC 33.2, RDW 14.3, Plt Count 215, MPV 10.3, Neut % (Auto) 77.4, Lymph % (Auto) 8.8 L, [place] % (Auto) 5.0, Eos % (Auto) 1.4, Baso % (Auto) 0.7, Neut # (Auto) 10.8 H, Lymph # (Auto) 1.2, [place] # (Auto) 0.7, Eos # (Auto) 0.2, Baso # (Auto) 0.1, Total Counted 100, Neutrophils % (Manual) 81 H, Lymphocytes % (Manual) 10, Monocytes % (Manual) 7, Eosinophils % (Manual) 2, Platelet Estimate Normal, RBC Morphology Normal, Sodium 137, Potassium 4.2, Chloride 106, Carbon Dioxide 27, Anion Gap 8.2, BUN 37 H, Creatinine 1.40 H, Estimated Creat Clear 33, Estimated GFR 48 L, Est GFR ( Amer) 58 L D, Glucose 101 H, Calcium 8.2 L, Magnesium 1.6, Total Bilirubin 0.4, AST 100 H, ALT 107 H D, Alkaline Phosphatase 76, Total Protein 5.9 L, Albumin 2.9 L, Globulin 3.0, Albumin/Globulin Ratio 1.0 L I & O for Labs for Last 24 Hours: Intake & Output 03/23/25 03/24/25 03/25/25 03/26/25 23:59 23:59 23:59 23:59 Intake Total 1298.287 / 1404.302 7762 / 1642 1106 / 1106 50 / 50 Output Total 730 / 730 3465 / 3565 5 / 2355 775 / 775 Balance 568.287 / 790.287 -1823 / -1923 -949 / -1249 -725 / -725 Weight 69.763 kg 66.361 kg 65.544 kg 65.54 kg Microbiology Reports for the Last 24 Hours: Microbiology 03/21/25 16:50 Blood Blood Culture - Preliminary NO GROWTH AFTER 4 DAYS The patient's infection will respond to the chosen ABx?: Yes Is the patient receiving the right drug, dose, and route?: Yes Could a more targeted ABx be ordered?: No (SPUTUM CX GROWING GRAM POSITIVE COCCI, BLOOD CX PENDING)
--- NOTE | 2025-03-26 08:27 | PC.NURSE ---
MD @ bedside. pt currently on 5lnc. tolerating well @ this time. will continue to monitor saturation and work of breathing
[2025-03-26] MEDS: guaiFENesin 600 MG TAB.ER.12H PO ×2 (08:30→20:47)
[2025-03-26] MEDS: FUROSEMIDE 40MG/4ML VIAL 40 MG IV ×2 (08:30→17:08)
[2025-03-26] MEDS: ASPIRIN EC 81MG TABLET 81 MG PO (08:30)
[2025-03-26 09:30] LABS: NT Pro Brain Natriuretic Pep. 822 pg/mL (0-450)
--- NOTE | 2025-03-26 09:47 | P.PN_ITS ---
Subjective *Date: 03/26/25 *Time: 11:19 Interval history: Patient admits worsening respiratory distress compared to yesterday. Pulmonology Exam Inpatient Vital signs and Labs for Last 24 Hours: Temp Pulse Resp BP Pulse Ox O2 Del Method O2 Flow Rate 99.1 F 93 H 40 H 113/51 L 91 L Vapotherm 30 03/26/25 08:01 03/26/25 09:30 03/26/25 08:01 03/26/25 08:01 03/26/25 09:30 03/26/25 09:30 03/26/25 09:30 FiO2 40 03/26/25 09:30 Laboratory Results - last 24 hr 03/26/25 04:40: WBC 14.0 H, RBC 4.05 L, Hgb 12.9 L, Hct 38.9 L, MCV 96.0 H, MCH 31.9 H, MCHC 33.2, RDW 14.3, Plt Count 215, MPV 10.3, Neut % (Auto) 77.4, Lymph % (Auto) 8.8 L, [place] % (Auto) 5.0, Eos % (Auto) 1.4, Baso % (Auto) 0.7, Neut # (Auto) 10.8 H, Lymph # (Auto) 1.2, [place] # (Auto) 0.7, Eos # (Auto) 0.2, Baso # (Auto) 0.1, Total Counted 100, Neutrophils % (Manual) 81 H, Lymphocytes % (Manual) 10, Monocytes % (Manual) 7, Eosinophils % (Manual) 2, Platelet Estimate Normal, RBC Morphology Normal, Sodium 137, Potassium 4.2, Chloride 106, Carbon Dioxide 27, Anion Gap 8.2, BUN 37 H, Creatinine 1.40 H, Estimated Creat Clear 33, Estimated GFR 48 L, Est GFR ( Amer) 58 L D, Glucose 101 H, Calcium 8.2 L, Magnesium 1.6, Total Bilirubin 0.4, AST 100 H, ALT 107 H D, Alkaline Phosphatase 76, NT-Pro-B Natriuret Pep 822 H, Total Protein 5.9 L, Albumin 2.9 L , Globulin 3.0, Albumin/Globulin Ratio 1.0 L Temp Pulse Resp BP Pulse Ox O2 Del Method O2 Flow Rate 98.5 F 96 H 23 99/46 L 97 Vapotherm 20 03/22/25 08:00 03/22/25 11:00 03/22/25 11:00 03/22/25 11:00 03/22/25 11:00 03/22/25 11:00 03/22/25 11:00 FiO2 55 03/22/25 11:00 Laboratory Results - last 24 hr 03/21/25 16:43: Chlamy pneumoniae PCR Not detected, Adenovirus (PCR) Not detected, B. pertussis DNA (PCR) Not detected, Coronavirus OC43 (PCR) Not detected, Coronavirus HKU1 (PCR) Not detected, Coronavirus 229E (PCR) Not detected, SARS-CoV-2 (PCR) Not detected, Coronavirus NL63 (PCR) Not detected, Hu man Metapneumovir PCR Not detected, Influenza A (H1) PCR Not detected, Influ A (H1N1/09) PCR Not detected, Influenza A (H3) PCR Not detected, Influenza Type A (PCR) Not detected, Influenza Type B (PCR) Not detected, M. pneumoniae (PCR) Not detected, Parainfluenza 1 (PCR) Not detected, Parainfluenza 2 (PCR) Not detected, Parainfluenza 3 (PCR) Not detected, Parainfluenza 4 (PCR) Not detected, RSV (PCR) Not detected, Entero/Rhino (PCR) Not detected 03/21/25 16:50: WBC 13.2 H, RBC 4.72, Hgb 14.9, Hct 46.0, MCV 97.5 H, MCH 31.6 H , MCHC 32.4, RDW 13.5, Plt Count 217, MPV 10.0, Neut % (Auto) 91.0 H, Lymph % (Auto) 5.0 L, [place] % (Auto) 1.6 L, Eos % (Auto) 0.5, Baso % (Auto) 0.6, Neut # (Auto) 12.1 H, Lymph # (Auto) 0.7, [place] # (Auto) 0.2, Eos # (Auto) 0.1, Baso # (Auto) 0.1, Sodium 137, Potassium 3.9, Chloride 105, Carbon Dioxide 18 L, Anion Gap 17.9 H, BUN 39 H, Creatinine 3.00 H, Estimated Creat Clear 15, Estimated GFR 20 L, Est GFR ( Amer) 24 L, Glucose 115 H, Calcium 8.5, Total Bilirubin 2.3 H 03/21/25 16:50: Total Bilirubin 2.2 H, Direct Bilirubin 0.4, Conjugated Bilirubin 0.0, Indirect Bilirubin 1.8 H, Unconjugated Bilirubin 1.8 H, AST 55, ALT 29, Alkaline Phosphatase 81, Troponin I 0.08 H, C-Reactive Protein 307.4 H, NT-Pro-B Natriuret Pep 7180 H, Total Protein 6.9, Albumin 3.6, Globulin 3.3 H, Albumin/Globulin Ratio 1.1, Procalcitonin 36.4 H 03/21/25 16:53: VBG pH 7.30 L, VBG pCO2 38.8, VBG pO2 21.7 L, VBG HCO3 18.7 L, VBG Total CO2 19.9 L, VBG O2 Saturation 31.9 L, VBG Base Excess -7.7 L, VBG Lactic Acid 7.6 H 03/21/25 20:07: Urine Color Yellow, Urine Appearance Cloudy, Urine pH 6.0, Ur Specific [place] 1.015, Urine Protein 2+ A, Urine Glucose (UA) Negative, Urine Ketones Negative, Urine Blood 3+ A, Urine Nitrate Negative, Urine Bilirubin Negative, Urine Urobilinogen 0.2, Ur Leukocyte Esterase Trace, Urine RBC 20-50, Urine WBC 20-50, Ur Squamous Epith Cells Occasional, Amorphous Sediment 1+, Urine Bacteria 3+, Ur Random Urea Nitrogn 331, Urine Creatinine 70, Urine Sodium 55.0, Urine Total Protein 79.0 H 03/21/25 20:37: Lactate 5.6 H, Troponin I 0.05 H 03/21/25 23:07: Lactate 4.1 H, Troponin I 0.04 H 03/22/25 04:37: WBC 11.4 H, RBC 3.90 L, Hgb 12.4 L D, Hct 37.5 L, MCV 96.2 H, MCH 31.3 H, MCHC 32.5, RDW 13.6, Plt Count 189, MPV 10.8 H, Neut % (Auto) 95.4 H , Lymph % (Auto) 1.9 L, [place] % (Auto) 0.9 L, Eos % (Auto) 0.1, Baso % (Auto) 0.5, Neut # (Auto) 10.8 H, Lymph # (Auto) 0.2 L, [place] # (Auto) 0.1, Eos # (Auto) 0.0, Baso # (Auto) 0.1, Total Counted 100, Neutrophils % (Manual) 95 H, Lymphocytes % (Manual) 3 L, Monocytes % (Manual) 2, Platelet Estimate Normal, RBC Morphology Normal, Sodium 139, Potassium 3.8, Chloride 115 H, Carbon Dioxide 16 L, Anion Gap 11.8, BUN 35 H, Creatinine 1.80 H D, Estimated Creat Clear 26, Estimated GFR 36 L, Est GFR ( Amer) 43 L D, Glucose 106 H, Lactate 2.4 H, Calcium 7.1 L, Total Bilirubin 1.3, AST 42, ALT 17 D, Alkaline Phosphatase 59, Troponin I 0.03, Total Protein 5.3 L, Albumin 2.6 L D, Globulin 2.7, Albumin/Globulin Ratio 1.0 L, Procalcitonin 49.0 H I & O for Labs for Last 24 Hours: Intake & Output 03/23/25 03/24/25 03/25/25 03/26/25 23:59 23:59 23:59 23:59 Intake Total 1298.287 / 7302.582 9624 / 1642 1106 / 1106 350 / 350 Output Total 730 / 730 3465 / 3565 2055 / 2355 975 / 975 Balance 568.287 / 790.287 -1823 / -1923 -949 / -1249 -625 / -625 Weight 153 lb 12.8 oz 146 lb 4.8 oz 144 lb 8 oz 144 lb 7.855 oz Intake & Output 03/19/25 03/20/25 03/21/25 03/22/25 23:59 23:59 23:59 23:59 Intake Total 2175.417 / 2175.417 1643.387 / 1643.387 Output Total 650 / 650 550 / 550 Balance 1525.417 / 0320.527 5468.387 / 1093.387 Weight 144 lb 11.2 oz 144 lb 11.206 oz Microbiology Reports for the Last 24 Hours: Microbiology 03/21/25 16:56 Blood Blood Culture - Final Streptococcus pneumoniae 03/21/25 16:50 Blood Blood Culture - Preliminary NO GROWTH AFTER 4 DAYS Microbiology 03/21/25 20:07 Rectum CRE Surveillance Culture - Final Constitutional: Present severe distress Head: Present normocephalic and atraumatic ENT: Present normal exam, normal oropharynx and mucous membranes moist Neck: Present normal inspection and full ROM Respiratory: Present respiratory distress, rhonchi and diminished air movement; Absent wheezes or able to speak in complete sentences Cardiac: Present S1/S2, Tachycardia and radial pulses present GI: Present soft and distention; Absent tenderness or guarding Skin: Present intact; Absent cyanosis or jaundice Neuro: Present alert, awake and oriented x 3 Extremities: Present normal inspection; Absent clubbing or cyanosis Psychiatric: Present normal affect and cooperative Assessment and Plan *Assessment and plan (1) Acute and chronic respiratory failure with hypoxia: Status: Acute Category: Medical Code(s): J96.21 - Acute and chronic respiratory failure with hypoxia (2) Pneumonia: Status: Acute Category: Medical Code(s): J18.9 - Pneumonia, unspecified organism (3) Sepsis: Status: Acute Qualifiers: Acute respiratory failure type: with hypoxia Sepsis acute organ dysfunction status: with acute organ dysfunction Sepsis type: sepsis due to unspecified organism Severe sepsis acute organ dysfunction type: acute respiratory failure Severe sepsis shock status: with septic shock Qualified Code(s): A41.9 - Sepsis, unspecified organism; R65.21 - Severe sepsis with septic shock; J96.01 - Acute respiratory failure with hypoxia Category: Medical Code(s): A41.9 - Sepsis, unspecified organism Plan Ms. Berman is a 89-year-old male greater than [id number] smoking history, COPD presented to the ER with worsening respiratory distress and pulmonary was called for further evaluation and manage. Afebrile. Hemodynamically stable. Neutrophilic predominant leukocytosis. Comprehensive respiratory viral PCR panel negative. CTA upon admission bilateral extensive lobar airspace disease left greater than right. No evidence of pulmonary embolism. Mediastinal and hilar lymphadenopathy noted likely reactive. Currently receiving nebulization therapies, steroids vancomycin and Meropenem. Blood cultures pending. On initial examination severe respiratory distress. Unable to complete in full sentences. Diffuse wheezing on auscultation. On HFNC. Interval update: Improving respiratory distress over the weekend, weaned to 4 L nasal cannula oxygen supplementation. Patient noted a worsening respiratory result overnight and was back on high flow. Blood gas from this morning did not show any evidence of hypercarbic respiratory failure. PaO2 recorded at 172. Continue to wean oxygen supplementation as tolerated. Blood cultures strep pneumonia sensitive to cephalosporins. Sputum cultures no growth so far. Continue to receive Zosyn. Chest x-ray from this morning improving pulmonary infiltrates. Plan: Antibiotics can be weaned from Zosyn to ceftriaxone for strep pneumo bacteremia. Will follow with repeat blood cultures. Incentive spirometry and flutter valve Continue high flow nasal oxygen supplementation to maintain O2 saturation of 90% and above. Current:30 L 40%. Wean as tolerated DuoNebs every 6 hours along with Pulmicort every 12 scheduled
[2025-03-26 10:17] LABS: VBG HCO3 26.3 mmol/L (23-30); VBG PCO2 35.4 mmol/L (35-51); VBG PH 7.49 mmol/L (7.31-7.41); VBG PO2 172.1 mmol/L (28-40)
[2025-03-26 10:20] LABS: Lactate Venous 2.2 mmol/L (0.4-2.0)
[2025-03-26] MEDS: HYDROCODONE/APAP 5/325 MG TABLET 1 TAB PO (10:23)
[2025-03-26] MEDS: ALBUTEROL 0.083% 2.5 MG/3 ML NEB IH (12:08)
--- NOTE | 2025-03-26 13:41 | P.PN_ITS ---
Subjective *Date: 03/26/25 *Time: 13:41 Interval history: Afebrile overnight. States he feeling somewhat better today. Necessitated increase in oxygen support overnight with initiation of Vapotherm. No nausea or vomiting. Having good response to diuretics. Medical Exam Vital signs and Labs for Last 24 Hours: Vital Signs Temp Pulse Resp BP Pulse Ox O2 Del Method O2 Flow Rate 03/26/25 12:08 89 03/26/25 12:08 89 03/26/25 12:00 96 H 03/26/25 12:00 89 L Vapotherm 03/26/25 11:00 Vapotherm 30 03/26/25 11:00 97 H 35 H 106/77 L 95 Vapotherm 03/26/25 10:00 95 H 34 H 126/66 91 L Vapotherm 03/26/25 09:30 91 L Vapotherm 03/26/25 09:30 93 H 03/26/25 09:30 94 H 03/26/25 09:00 83 29 H 124/63 89 L Nasal Cannula 03/26/25 09:00 Nasal Cannula 03/26/25 08:01 99.1 F 90 40 H 113/51 L 98 Vapotherm 03/26/25 08:00 90 L Nasal Cannula 5 03/26/25 08:00 90 03/26/25 07:00 84 29 H 115/59 L 97 Vapotherm 03/26/25 06:47 Vapotherm 03/26/25 06:14 88 22 03/26/25 06:14 92 H 03/26/25 06:14 88 03/26/25 06:14 95 Vapotherm 03/26/25 06:00 86 32 H 115/60 98 Vapotherm 03/26/25 05:00 85 35 H 116/54 L 93 L Vapotherm 03/26/25 05:00 Vapotherm 03/26/25 04:00 98.4 F 91 H 28 H 124/61 91 L Vapotherm 03/26/25 04:00 96 Vapotherm 03/26/25 04:00 86 03/26/25 03:00 92 H 28 H 116/63 98 Vapotherm 03/26/25 03:00 Vapotherm 03/26/25 02:20 96 H 03/26/25 02:05 94 H 03/26/25 02:00 98.4 F 92 H 27 H 118/67 100 Vapotherm 30 03/26/25 01:00 90 36 H 116/59 L 97 Vapotherm 30 03/26/25 01:00 Vapotherm 30 03/26/25 00:15 96 H 19 95 Vapotherm 30 03/26/25 00:01 107 H 27 H 133/70 85 L Nasal Cannula 6 03/26/25 00:00 95 Vapotherm 30 03/26/25 00:00 98.9 F 03/26/25 00:00 98 Vapotherm 03/26/25 00:00 89 03/25/25 23:00 98.9 F 90 30 H 111/53 L 94 L Nasal Cannula 6 03/25/25 23:00 Nasal Cannula 6 03/25/25 22:00 96 H 31 H 123/55 L 91 L Nasal Cannula 6 03/25/25 21:47 94 H 03/25/25 21:46 91 H 03/25/25 21:00 92 H 35 H 106/58 L 93 L Nasal Cannula 5 03/25/25 21:00 Nasal Cannula 5 03/25/25 20:00 98.9 F 86 36 H 120/61 95 Nasal Cannula 5 03/25/25 20:00 89 03/25/25 19:28 95 Nasal Cannula 5 03/25/25 19:00 95 H 35 H 119/50 L 93 L Nasal Cannula 4 03/25/25 19:00 93 H 28 H 119/50 L 93 L Nasal Cannula 4 03/25/25 18:53 Nasal Cannula 4 03/25/25 18:53 Nasal Cannula 4 03/25/25 18:52 93 H 03/25/25 18:51 87 03/25/25 18:00 92 H 39 H 117/61 93 L Nasal Cannula 4 03/25/25 18:00 117/61 03/25/25 17:45 88 32 H 92 L 03/25/25 17:30 94 H 32 H 89 L 03/25/25 17:15 100 H 35 H 88 L 03/25/25 17:01 90 36 H 92 L 03/25/25 17:00 90 25 H 133/105 H 92 L Nasal Cannula 4 03/25/25 17:00 Nasal Cannula 4 03/25/25 17:00 91 H 30 H 115/59 L 93 L Nasal Cannula 4 03/25/25 16:03 97.4 F L 91 H 26 H 115/64 85 L Nasal Cannula 6 03/25/25 16:00 91 L Nasal Cannula 6 03/25/25 16:00 94 L Nasal Cannula 5 03/25/25 16:00 88 30 H 115/64 93 L Nasal Cannula 6 03/25/25 16:00 86 03/25/25 15:33 88 03/25/25 15:33 88 03/25/25 15:00 Nasal Cannula 6 03/25/25 15:00 90 25 H 116/71 86 L Nasal Cannula 6 03/25/25 14:00 87 29 H 126/66 92 L Nasal Cannula 6 03/25/25 14:00 83 30 H 126/66 93 L Nasal Cannula 5 [facility] 03/26/25 12:08 03/26/25 12:08 03/26/25 12:00 03/26/25 12:00 40 03/26/25 11:00 03/26/25 11:00 40 03/26/25 10:00 40 03/26/25 09:30 40 03/26/25 09:30 03/26/25 09:30 03/26/25 09:00 03/26/25 09:00 03/26/25 08:01 70 03/26/25 08:00 03/26/25 08:00 03/26/25 07:00 03/26/25 06:47 03/26/25 06:14 03/26/25 06:14 03/26/25 06:14 03/26/25 06:14 03/26/25 06:00 03/26/25 05:00 03/26/25 05:00 03/26/25 04:00 03/26/25 04:00 03/26/25 04:00 03/26/25 03:00 03/26/25 03:00 03/26/25 02:20 03/26/25 02:05 03/26/25 02:00 03/26/25 01:00 03/26/25 01:00 03/26/25 00:15 03/26/25 00:01 03/26/25 00:00 03/26/25 00:00 03/26/25 00:00 100 03/26/25 00:00 03/25/25 23:00 03/25/25 23:00 03/25/25 22:00 03/25/25 21:47 03/25/25 21:46 03/25/25 21:00 03/25/25 21:00 03/25/25 20:00 03/25/25 20:00 03/25/25 19:28 03/25/25 19:00 03/25/25 19:00 03/25/25 18:53 03/25/25 18:53 03/25/25 18:52 03/25/25 18:51 03/25/25 18:00 03/25/25 18:00 03/25/25 17:45 03/25/25 17:30 03/25/25 17:15 03/25/25 17:01 03/25/25 17:00 03/25/25 17:00 03/25/25 17:00 03/25/25 16:03 03/25/25 16:00 03/25/25 16:00 03/25/25 16:00 03/25/25 16:00 03/25/25 15:33 03/25/25 15:33 03/25/25 15:00 03/25/25 15:00 03/25/25 14:00 03/25/25 14:00 Intake and Output 03/25/25 03/26/25 03/26/25 23:59 07:59 15:59 Intake Total 646 / 1106 50 / 350 300 / 350 Output Total 450 / 2355 775 / 2375 1600 / 2375 Balance 196 / -1249 -725 / -2025 -1300 / -2024 Intake: Intake, Oral Amount 596 / 906 0 / 200 200 / 200 Intake, Total IV Amount 50 / 200 50 / 150 100 / 150 Ceftriaxone 1 gm 1 gm In 0.9 % 50 / 50 Sodium Chloride 50 ml @ 100 mls /hr IV Q24H [facility] Rx#:[id number] Pipercillin/Tazo 3.375 gm In 0. 50 / 200 50 / 100 50 / 100 9 % Sodium Chloride 50 ml @ 100 mls/hr IV Q6H [facility] Rx#:[id number] Output: Output, Urine Amount 450 / 2355 775 / 2375 1600 / 2375 Other: Number of Unmeasured Voids 0 0 Weight 65.54 kg Patient Weight 03/26/25 23:59 Weight 65.54 kg Laboratory Results - last 24 hr 03/26/25 04:40: WBC 14.0 H, RBC 4.05 L, Hgb 12.9 L, Hct 38.9 L, MCV 96.0 H, MCH 31.9 H, MCHC 33.2, RDW 14.3, Plt Count 215, MPV 10.3, Neut % (Auto) 77.4, Lymph % (Auto) 8.8 L, [place] % (Auto) 5.0, Eos % (Auto) 1.4, Baso % (Auto) 0.7, Neut # (Auto) 10.8 H, Lymph # (Auto) 1.2, [place] # (Auto) 0.7, Eos # (Auto) 0.2, Baso # (Auto) 0.1, Total Counted 100, Neutrophils % (Manual) 81 H, Lymphocytes % (Manual) 10, Monocytes % (Manual) 7, Eosinophils % (Manual) 2, Platelet Estimate Normal, RBC Morphology Normal, Sodium 137, Potassium 4.2, Chloride 106, Carbon Dioxide 27, Anion Gap 8.2, BUN 37 H, Creatinine 1.40 H, Estimated Creat Clear 33, Estimated GFR 48 L, Est GFR ( Amer) 58 L D, Glucose 101 H, Calcium 8.2 L, Magnesium 1.6, Total Bilirubin 0.4, AST 100 H, ALT 107 H D, Alkaline Phosphatase 76, NT-Pro-B Natriuret Pep 822 H, Total Protein 5.9 L, Albumin 2.9 L , Globulin 3.0, Albumin/Globulin Ratio 1.0 L 03/26/25 10:05: VBG pH 7.49 H, VBG pCO2 35.4, VBG pO2 172.1 H, VBG HCO3 26.3, VBG Total CO2 27.4 H, VBG O2 Saturation 99.3 H, VBG Base Excess 3.0 H, VBG Lactic Acid 2.2 H I & O for Labs for Last 24 Hours: Intake & Output 03/23/25 03/24/25 03/25/25 03/26/25 23:59 23:59 23:59 23:59 Intake Total 1298.287 / 7407.727 0086 / 1642 1106 / 1106 350 / 350 Output Total 730 / 730 3465 / 3565 205 / 235 2375 / 237 Balance 568.287 / 790.287 -1823 / -1923 -949 / -1249 -2024 / -2024 Weight 69.763 kg 66.361 kg 65.544 kg 65.54 kg Microbiology Reports for the Last 24 Hours: Microbiology 03/21/25 16:56 Blood Blood Culture - Final Streptococcus pneumoniae 03/21/25 16:50 Blood Blood Culture - Preliminary NO GROWTH AFTER 4 DAYS Constitutional: Present moderate distress, thin, chronically ill appearing and cooperative Head: Present atraumatic and normocephalic ENT: Present normal exam Respiratory: Present prolonged expiratory phase, respiratory distress, rhonchi and crackles; Absent wheezes Cardiac: Present Reg Rate and Rhythm GI: Present soft; Absent distention or tenderness Extremities: Absent tenderness or edema Skin: Present intact; Absent erythema Neuro: Present Grossly Intact, alert, awake, oriented x 3 and moves all extremities Assessment and Plan *Assessment and plan (1) CAD (coronary artery disease): Status: Acute Category: Medical Code(s): I25.10 - Atherosclerotic heart disease of [place] coronary artery without angina pectoris (2) Sepsis: Status: Acute Qualifiers: Acute respiratory failure type: with hypoxia Sepsis acute organ dysfunction status: with acute organ dysfunction Sepsis type: sepsis due to unspecified organism Severe sepsis acute organ dysfunction type: acute respiratory failure Severe sepsis shock status: with septic shock Qualified Code(s): A41.9 - Sepsis, unspecified organism; R65.21 - Severe sepsis with septic shock; J96.01 - Acute respiratory failure with hypoxia Category: Medical Code(s): A41.9 - Sepsis, unspecified organism (3) Septic shock: Status: Resolved Category: Medical Code(s): A41.9 - Sepsis, unspecified organism; R65.21 - Severe sepsis with septic shock (4) Non-ST elevation ND (NSTEMI): Status: Acute Category: Medical Code(s): I21.4 - Non-ST elevation (NSTEMI) myocardial infarction (5) MORE (acute kidney injury): Status: Acute Category: Medical Code(s): N17.9 - Acute kidney failure, unspecified (6) Multifocal pneumonia: Status: Acute Category: Medical Code(s): J18.8 - Other pneumonia, unspecified organism (7) Bacteremia due to Streptococcus pneumoniae: Status: Acute Category: Medical Code(s): R78.81 - Bacteremia; B95.3 - Streptococcus pneumoniae as the cause of diseases classified elsewhere (8) Acute hypoxic respiratory failure: Status: Acute Category: Medical Code(s): J96.01 - Acute respiratory failure with hypoxia Plan Buster Berman is a 89-year-old male who presented with shortness of breath and was admitted with acute hypoxic respiratory failure from community-acquired pneumonia with septic shock. Found to be bacteremic with Streptococcus pneumoniae. As well found to have type II NSTEMI from stress of shock, bacteremia, pneumonia.. #Acute hypoxic respiratory failure #Community-acquired pneumonia #Strep pneumonia bacteremia #Septic shock, resolved #Sepsis ? Presented with shortness of breath, CTA chest 03/21/2025 showing bibasilar pneumonia. -Repeat chest x-ray this morning per my review showing persistent bilateral airspace disease. ? Blood culture growing strep pneumonia, sensitive to ceftriaxone and Zosyn. Sputum with gram-positive cocci, suspect this will also be strep given his bacteremia ? WBC stable at 14, hemoglobin 12.9. Repeat procalcitonin and CRP ordered for the morning, along with CBC, CMP, magnesium ? Levophed discontinued on 03/23/2025. ? Discussed case with pulmonology, will transition antibiotics from Zosyn to ceftriaxone for strep pneumonia bacteremia/pneumonia. - Repeat blood cultures ordered. - Continue supplemental oxygen as needed for goal sats greater 90%. Currently on high flow at 30 L and 40%. Wean as tolerated. DuoNebs scheduled every 4 hours, Pulmicort twice daily, albuterol as needed every 6 hours for breakthrough symptoms ? Patient is interested in strep pneumonia vaccination at discharge. #Suspected heart failure exacerbation ? Initial BNP 7180, ECHO pending. Volume overload likely contributing to hypoxic respiratory failure especially with pneumonia. ? Continue IV Lasix 40 mg increased to twice daily - Potassium 4.2 #MORE on CKD ? Initial creatinine 3.0, improved to 1.4 today. BUN 37. Resume Lasix to 40 mg IV twice daily #CAD #NSTEMI type II #Severe coronary calcification ? Coronary calcification evidenced by CTA chest. Troponins peaked at 0.08, improved to 0.03. No chest pain. Likely NSTEMI type II in the setting of sept ic shock/strep bacteremia. ? Continue aspirin 81 mg. Hold statin due to sepsis. DNR/DNI DVT prophylaxis: Lovenox 30 mg Cardiac diet
--- NOTE | 2025-03-26 13:44 | HMH.OTEV ---
OT Inpatient Evaluation Rehab OT IP Evaluation Start: 03/26/25 07:43 Freq: ONCE Status: Active Protocol: Document 03/26/25 13:40 [facility] (Rec: 03/26/25 13:44 [facility] [id number]) Rehab OT IP Assessment Subjective History Pt oriented x 2 on arrival. Pt agreeable to engage in therapy evaluation. Pt was admitted on 03/21/25 due to sepsis, PNA, and UTI. History and physical: This is an 89-year-old male who has a past medical history significant fo for bladder cancer and COPD who presents with a chief complaint of shortness of breath. Due to patient's symptoms, he presented to the emergency room for evaluation. While in the emergency room, CT scan of the chest revealed no acute pulmonary emboli, advanced pulmonary emphysema with a large left lower lobe consolidative pneumonia and small right lower lobe consolidated pneumonia with the possibility of a cavitation, probable reactive mediastinal lymph nodes, and advanced three-vessel coronary artery calcification. Patient was hypotensive , hypoxemic, and tachycardic while in the emergency room. He was given crystalloids and his blood pressure did not improve; however, his hypoxemia persisted and required nonrebreather. As a result, hospital medicine was consulted for further management. Patient is normally not oxygen dependent. During my evaluation of the patient, patient states he has not felt well for approximately 1 week. He reports progressive shortness of air and not feeling well over the past 2 days. Over the past 2 days he started to experience a mild nonproductive cough. Patient reports that he did use his home nebulizer and it did not provide him any relief. Daughter at the bedside states that he was in contact with his son who was ill and he was at a birthday alliance party where a young lady had a sinus infection. Patient has known bladder cancer and has had his bladder removed with an ostomy placed approximately 11 years ago. He does report having some wheezing at home. Currently he is denying any chest pain, lightheadedness, dizziness, fever, chills, rigors , nausea, vomiting, or diarrhea. Additional pertinent vitals obtained include a white blood cell count of 13. 2, neutrophils 91%, pH 7.30, bicarb of 18.7, carbon oxide of 18, BUN of 39, creatinine of 3, GFR of 20, blood glucose 115, total bilirubin 2.2, troponin 0.08, C-reactive protein 307.4, BNP of 7180, and procalcitonin of 36.4. Subjective Prior to being in the hospital, pt lived with his stepson. Pt claims normally he is independent with ADLs. However, he is dependent upon others for completion of all IADLs. He no longer drives. He uses a motorized wheelchair for long distance transfers. Pt is oxygen dependent. Objective Patient Orientation Person,Birthday Right Upper Min Limitation <25% Extremity Gross ROM Left Upper Extremity Min Limitation <25% Gross ROM Shoulder ROM Muscle Weakness Limitations Elbow ROM Muscle Weakness Limitations Wrist Limitations of Muscle Weakness Range of Motion Bed Mobility bed mobility-scooting,bed mobility - supine/sit Assist Level Moderate x 2 (50% assist) Rehab OT IP prob,goals,plan Problems Date of Evaluation: 03/26/25 OT IP Problems Bed Mobility,Transfers,Balance,Self care,Safety Rehab Potential Rehab Potential Good Equipment Needs Assistive Devices Rolling / Wheeled Walker Plan OT intervention Plan Bed Mobility,Transfers,Balance,Self care,Safety, Therapeutic Exercise OT Plan Frequency Daily Duration LOS Discharge Goals Bed Mobility Ability Assistance x1 Sit to Stand Chair Minimal x 2 (25% assist) Transfer Ability Chair Transfer Moderate x 1 (50% assist) Ability Chair Transfer Stand Pivot Technique Chair Transfer Rolling Walker Assistive Devices Lower Body Dressing Minimal Assistance Ability Upper Body Dressing Contact Guard Ability Performing Toilet Moderate Assistance Hygiene Ability Overall Commode/ Minimal Assistance Toilet Transfer Ability Commode/Toilet Stand Pivot Transfer Technique Discharge Plan OT Discharge Plan Pt will continue to be seen for OT services while at [facility]. Pt would benefit most from short term rehab at [facility] following hospital stay. Continued skilled therapy is important in order for patient to improve strength, safety, endurance, ADL independence, and functional transfers to reach [facility]. Eval Complexity Eval Charge Codes 74756 - Moderate Complexity PHYSICIAN CERTIFICATION: I certify the specified therapy services for Buster Carneymarissa are required, authorized, and reviewed every 30 days.
[2025-03-26 14:19] LABS: Reflex Lactic Add Lactic Reflex
[2025-03-26 14:47] LABS: Lactic Acid Follow Up (RFLX 1) 2.0 mmol/L (0.7-2.1)
--- NOTE | 2025-03-26 14:56 | EXP.CARD.PN ---
Subjective Subjective Date: 03/26/25 Time: 13:00 Interval history: Patient reportedly had been improving over the weekend but this morning took a significant decline with O2 status, now requiring Vapotherm at 30 L/min and patient is frequently removing stating he is okay if he dies per nursing staff. From a CV standpoint his 2D echo has resulted showing normal LV function, no wall motion abnormalities, mild to moderate RV dilation with mild reduction in RV function. Patient denies chest pain. Tells me he has never had any cardiac problems previously. EKG today shows sinus tach 101 with frequent PVCs. Exam Data for Last 24 hours Vital signs and Labs for Last 24 Hours: Temp Pulse Resp BP Pulse Ox O2 Del Method O2 Flow Rate 99.1 F 87 35 H 106/77 L 89 L Vapotherm 30 03/26/25 08:01 03/26/25 14:13 03/26/25 11:00 03/26/25 11:00 03/26/25 12:00 03/26/25 13:00 03/26/25 13:00 FiO2 40 03/26/25 12:00 Laboratory Results - last 24 hr 03/26/25 04:40: WBC 14.0 H, RBC 4.05 L, Hgb 12.9 L, Hct 38.9 L, MCV 96.0 H, MCH 31.9 H, MCHC 33.2, RDW 14.3, Plt Count 215, MPV 10.3, Neut % (Auto) 77.4, Lymph % (Auto) 8.8 L, [place] % (Auto) 5.0, Eos % (Auto) 1.4, Baso % (Auto) 0.7, Neut # (Auto) 10.8 H, Lymph # (Auto) 1.2, [place] # (Auto) 0.7, Eos # (Auto) 0.2, Baso # (Auto) 0.1, Total Counted 100, Neutrophils % (Manual) 81 H, Lymphocytes % (Manual) 10, Monocytes % (Manual) 7, Eosinophils % (Manual) 2, Platelet Estimate Normal, RBC Morphology Normal, Sodium 137, Potassium 4.2, Chloride 106, Carbon Dioxide 27, Anion Gap 8.2, BUN 37 H, Creatinine 1.40 H, Estimated Creat Clear 33, Estimated GFR 48 L, Est GFR ( Amer) 58 L D, Glucose 101 H, Calcium 8.2 L, Magnesium 1.6, Total Bilirubin 0.4, AST 100 H, ALT 107 H D, Alkaline Phosphatase 76, NT-Pro-B Natriuret Pep 822 H, Total Protein 5.9 L, Albumin 2.9 L, Globulin 3.0, Albumin/Globulin Ratio 1.0 L 03/26/25 10:05: VBG pH 7.49 H, VBG pCO2 35.4, VBG pO2 172.1 H, VBG HCO3 26.3, VBG Total CO2 27.4 H, VBG O2 Saturation 99.3 H, VBG Base Excess 3.0 H, VBG Lactic Acid 2.2 H 03/26/25 14:28: Lactate 2.0 I & O for Last 24 hours: Intake & Output 03/23/25 03/24/25 03/25/25 03/26/25 23:59 23:59 23:59 23:59 Intake Total 1298.287 / 3593.255 2312 / 1642 1106 / 1106 350 / 350 Output Total 730 / 730 3465 / 3565 2055 / 2355 2675 / 2675 Balance 568.287 / 790.287 -1823 / -1923 -949 / -1249 -2325 / -2325 Weight 153 lb 12.8 oz 146 lb 4.8 oz 144 lb 8 oz 144 lb 7.855 oz Microbiology Reports for the Last 24 Hours: Microbiology 03/21/25 16:56 Blood Blood Culture - Final Streptococcus pneumoniae 03/21/25 16:50 Blood Blood Culture - Preliminary NO GROWTH AFTER 4 DAYS Constitutional Constitutional: no acute distress, thin and cooperative *Routine HEENT Exam Eye: Present PERRL *Routine Respiratory Exam Respiratory: Present CTA bilaterally; Absent accessory muscle use, wheezes or crackles *Routine Cardiovascular Exam Cardiovascular: Present RRR, Normal S1 and Normal S2; Absent murmur, gallop or rubs *Routine Abdominal Exam Abdominal: Present soft; Absent tenderness *Routine Extremities Exam Extremities: Present pulses intact; Absent cyanosis or edema *Routine Skin Exam Skin: Present intact; Absent erythema or wounds *Routine Neurological Exam Neurological: Present alert and oriented X3 Routine Psychiatric Exam Psychiatric: Present cooperative Progress Note: A&P Assessment and plan (1) CAD (coronary artery disease): Status: Acute (2) Sepsis: Status: Acute (3) Septic shock: Status: Resolved (4) Non-ST elevation [place] (NSTEMI): Status: Acute (5) MORE (acute kidney injury): Status: Acute (6) Multifocal pneumonia: Status: Acute (7) Bacteremia due to Streptococcus pneumoniae: Status: Acute (8) Acute hypoxic respiratory failure: Status: Acute Assessment and Plan Assessment and Plan for All Diagnoses:: Type II MT - Mild troponin bump in the setting of acute septic shock with strep pneumonia bacteremia - EKG shows no ST elevation - CCS = 0 - 2D echo shows normal LV function with no wall motion abnormalities - Patient on aspirin and Lovenox Elevated ProBNP - Normal LV function, mild-mod RV dilation and dysfunction in setting of PNA/bacteremia - pt euvolemic - diurese PRN Septic shock with strep pneumonia bacteremia secondary to pneumonia - With associated acute hypoxic respiratory failure, now requiring Vapotherm at 30 L/min - Patient on broad-spectrum antibiotics - Plans per primary service and pulmonology No CV changes warranted at this time. Please advise if we can be of further assistance this admission.
--- NOTE | 2025-03-26 15:25 | HMH.PTEV ---
Physical Therapy Evaluation Rehab PT IP Evaluation Start: 03/23/25 18:09 Freq: ONCE Status: Active Protocol: Document 03/26/25 15:22 MIGUEL (Rec: 03/26/25 15:25 MIGUEL [id number]) Subjective/History History History Per H&P: This is an 89-year-old male who has a past medical history significant fo for bladder cancer and COPD who presents with a chief complaint of shortness of breath. Due to patient's symptoms, he presented to the emergency room for evaluation. While in the emergency room, CT scan of the chest revealed no acute pulmonary emboli, advanced pulmonary emphysema with a large left lower lobe consolidative pneumonia and small right lower lobe consolidated pneumonia with the possibility of a cavitation, probable reactive mediastinal lymph nodes, and advanced three-vessel coronary artery calcification. Patient was hypotensive , hypoxemic, and tachycardic while in the emergency room. He was given crystalloids and his blood pressure did not improve; however, his hypoxemia persisted and required nonrebreather. As a result, hospital medicine was consulted for further management. Patient is normally not oxygen dependent. During my evaluation of the patient, patient states he has not felt well for approximately 1 week. He reports progressive shortness of air and not feeling well over the past 2 days. Over the past 2 days he started to experience a mild nonproductive cough. Patient reports that he did use his home nebulizer and it did not provide him any relief. Daughter at the bedside states that he was in contact with his son who was ill and he was at a birthday republican where a young lady had a sinus infection. Patient has known bladder cancer and has had his bladder removed with an ostomy placed approximately 11 years ago. He does report having some wheezing at home. Currently he is denying any chest pain, lightheadedness, dizziness, fever, chills, rigors , nausea, vomiting, or diarrhea. Additional pertinent vitals obtained include a white blood cell count of 13. 2, neutrophils 91%, pH 7.30, bicarb of 18.7, carbon oxide of 18, BUN of 39, creatinine of 3, GFR of 20, blood glucose 115, total bilirubin 2.2, troponin 0.08, C-reactive protein 307.4, BNP of 7180, and procalcitonin of 36.4. Subjective Subjective Prior to being in the hospital, pt lived with his stepson. Pt claims normally he is independent with ADLs and mobility. Pt no longer drives. Pt uses a motorized wheelchair for long distance transfers. Pt is oxygen dependent. [facility] How much help from another person do you currently need... Turning from your A little back to your side while in a flat bed without using bedrails? Moving from lying on A little back to sitting on the side of a flat bed without using bedrails? Moving to and from a A little bed to a chair ( including a wheelchair)? Standing up from a A little chair using your arms? (e.g., wheelchair, bedside chair) Walking in hospital A lot room? Climbing 3-5 steps A lot with a railing? Mobility Score 16 Mobility Level [facility] 5 Stand (1 or more minutes) Mobility Calculator Rehab PT IP Eval Objective Appearance Patient Behavior Appropriate,Cooperative Patient Orientation Person,Place Difficulty following none instructions Speech Pattern Clear Ambulation Patient Able to No Ambulate Balance Ability to Arise Able, uses arms to help Sitting Balance Steady, safe Standing Balance Unsteady Transfers Bed Transfer Ability Minimal x 1 (25% assist) Rehab PT IP prob,goals,plan Problems Date of Evaluation: 03/26/25 PT IP Problems Bed Mobility,Transfers,Gait,Balance,Self care,Safety Rehab Potential Rehab Potential Good Plan PT Intervention Plan Bed Mobility,Transfers,Gait,Balance,Self care,Safety, Therapeutic Exercise Other Intervention 1-2 times Plan PT Plan Frequency Daily Duration LOS Discharge Goals Bed Transfer Ability Contact Guard/Hand Hold Sit to Stand Chair Contact Guard/Hand Hold Transfer Ability Ambulation Assistive Rolling Walker Device Ambulation Distance 10 (feet) Discharge Plan PT Discharge Plan Initial physical therapy evaluation performed. Patient presents below baseline at this time in functional mobility, transfers, and strength. Pt not safe to return home at this time d/t current level of functional mobility. PT recommending inpatient rehabilitation facility (IRF) placement upon d/c from [facility]. Pt would benefit from skilled PT while at [facility] to prevent further functional decline and maximize safety with mobility. Eval Complexity Eval Charge Codes 19273 - Moderate Complexity PHYSICIAN CERTIFICATION: I certify the specified therapy services for Buster Berman are required, authorized, and reviewed every 30 days.
--- NOTE | 2025-03-26 17:16 | P.EN_ITS ---
Advance care planning note: Active diagnosis: Septic shock, strep pneumonia bacteremia, COPD, acute on chronic hypoxemic respiratory failure, NSTEMI type II The patient's active diagnoses are of sufficient risk that focused discussion on advanced care planning is indicated in order to allow the patient to thoughtfully consider personal goals of care; and, if situations arise that prev ent the ability to personally give input, to ensure appropriate representation of their personal desires through documentation or informed surrogate decision makers. Discussion: Persons present and participating in discussion: 2 sons Connor Leon, Praneeth Berman, patient, myself Discussion: Discussed the extent of his disease, patient's desire to discharge home. Patient's desire to remain DNR/DNI. Would like to go to rehab if possible but if not, was to do what ever he can to discharge from the hospital as soon as possible. Extensive discussion about patient's current irritability as he is just ready to go home. Explained his needs for lower oxygen and continuing to address his septic shock, strep bacteremia. Patient and family state understanding. Will have case management work on rehab placement starting in the morning. Continue to wean oxygen as tolerated. Reassured patient and family that he is doing better and responding appropriately to therapy. Time spent: Total time spent [id number] in education and discussion directly related to advance care plannin minutes Herman Ferro 03/26/2025 17:20-17:38
[2025-03-27] VITALS (23 sets, daily range): BP systolic 91–134; BP diastolic 57–71; PULSE 83–107; RESP 17–35; TEMP 36.4–36.8; O2SAT 86–95; BMI 19.6
[2025-03-27] MEDS: IPRATROPIUM/ALBUTEROL 3 ML NEB IH ×4 (01:33→13:10)
[2025-03-27 06:19] LABS: Hematocrit 39.0 % (42.0-52.0); Hemoglobin 13.3 g/dL (14.1-18.0); Immature Granulocytes % 9.6 %; Mean Corpuscular HGB Conc 34.1 g/dL (31.8-35.4); Mean Corpuscular Hemoglobin 32.3 pg (27.0-31.2); Mean Corpuscular Volume 94.7 fl (80-94); Nucleated Red Blood Cells % 0.1 %; Platelet Count 250 K/mm3 (142-424); Red Blood Count 4.12 M/mm3 (4.60-6.20); Red Cell Distribution Width-SD 47.5 fL; White Blood Count 16.4 K/mm3 (4.8-10.8)
[2025-03-27 06:29] LABS: Alanine Aminotransferase 121 U/L (12-78); Albumin Level 3.1 g/dl (3.5-5.0); Albumin/Globulin Ratio 1.0 (1.1-1.8); Alkaline Phosphatase 86 U/L (38-126); Anion Gap 12.6 mEq/L (5-15); Aspartate Amino Transferase 68 U/L (17-59); Bilirubin,Total 0.3 mg/dl (0.2-1.3); Blood Urea Nitrogen 45 mg/dl (9-20); Calcium 8.0 mg/dl (8.4-10.2); Carbon Dioxide 27 mmol/L (22.0-30.0); Chloride 102 mmol/L (98-107); Creatinine Clearance Estimated 30 mL/min (50-200); Creatinine,Serum 1.50 mg/dl (0.66-1.25); Estimated Glomerular Filt Rate 44 ml/min (>60); GFR (African American) 53 ML/MIN (>60); Globulin 3.0 g/dL (1.3-3.2); Glucose 151 mg/dl (74-100); Potassium 3.6 mmoL/L (3.5-5.1); Sodium 138 mmol/L (136-145); Total Protein,Serum 6.1 g/dl (6.3-8.2)
[2025-03-27 06:50] LABS: Magnesium 1.7 mg/dl (1.6-2.3)
[2025-03-27 06:55] LABS: C-Reactive Protein 79.5 mg/L (0-4)
[2025-03-27 07:08] LABS: Procalcitonin 4.51 ng/mL (0.0-2.0)
--- NOTE | 2025-03-27 07:20 | SW/DCPLANNER ---
Addendum entered by Oma Frye 03/27/25 15:45: Per Samantha rodriguez/ [facility] patient meets guidelines for Hospice inpatient and MD concurs. Patient will change to Hospice inpatient today. I will continue to follow up. Addendum entered by Oma Frye 03/27/25 13:22: Patient has requested that information be faxed to [facility]. I have updated Scot rodriguez/ [facility]. Family will be at bedside at 3PM to speak w/ Hospice today. Addendum entered by Oma Frye 03/27/25 09:52: [facility] is currently reviewing patient information. Original Note: I spoke w/ patient yesterday regarding discharge planning along w/ MD discussion w/ patient. PT/OT evaluated patient and recommended SNF level of care. Patient is agreeable to placement and prefers [facility]. I will fax patient information to Scot Palma this AM. Scot stated that family was contacting him yesterday regarding bed availability. Discharge date is unknown at this time. I will continue to follow up.
[2025-03-27] MEDS: FUROSEMIDE 40MG/4ML VIAL 40 MG IV (08:19)
[2025-03-27] MEDS: ASPIRIN EC 81MG TABLET 81 MG PO (08:19)
[2025-03-27] MEDS: guaiFENesin 600 MG TAB.ER.12H PO (08:19)
--- NOTE | 2025-03-27 09:40 | PC.NURSE ---
Pt verbally refused to get up to chair to both horticulture worker and nurse stating my stomach hurts, I don't want to get up right now .
--- NOTE | 2025-03-27 11:37 | EXP.ACUTE.PN ---
Subjective *Date: 03/27/25 *Time: 11:37 Medical Exam Vital signs and Labs for Last 24 Hours: Vital Signs Temp Pulse Pulse Resp BP Pulse Ox O2 Del Method 03/27/25 11:00 96 H 34 H 114/61 90 L Vapotherm 03/27/25 10:58 Vapotherm 03/27/25 10:30 92 H 24 95 Vapotherm 03/27/25 10:00 91 H 28 H 117/60 90 L Vapotherm 03/27/25 09:31 90 L Vapotherm 03/27/25 09:05 91 L Vapotherm 03/27/25 09:00 89 35 H 122/71 92 L Vapotherm 03/27/25 09:00 Vapotherm 03/27/25 08:47 91 L Vapotherm 03/27/25 08:00 100 H 03/27/25 08:00 97.6 F 98 H 20 119/67 86 L Vapotherm 03/27/25 07:00 95 H 21 119/61 94 L Vapotherm 03/27/25 06:57 Vapotherm 03/27/25 06:00 83 32 H 107/60 L 94 L Vapotherm 03/27/25 05:00 84 26 H 112/63 95 Vapotherm 03/27/25 05:00 Vapotherm 03/27/25 04:00 90 03/27/25 04:00 83 93 L Vapotherm 03/27/25 04:00 97.9 F 93 H 24 106/60 L 91 L Vapotherm 03/27/25 03:00 Vapotherm 03/27/25 03:00 98 H 31 H 91/63 L 92 L Vapotherm 03/27/25 02:00 85 22 112/59 L 95 Vapotherm 03/27/25 01:33 84 03/27/25 01:33 87 03/27/25 01:33 92 L Vapotherm 03/27/25 01:00 92 H 29 H 104/58 L 94 L Vapotherm 03/27/25 01:00 Vapotherm 03/27/25 00:00 90 03/27/25 00:00 90 92 L Vapotherm 03/27/25 00:00 98.2 F 88 30 H 104/57 L 95 Vapotherm 03/26/25 23:00 97.9 F 95 H 32 H 109/67 L 93 L Vapotherm 03/26/25 23:00 Vapotherm 03/26/25 22:00 98 H 24 104/61 L 93 L Vapotherm 03/26/25 21:14 99 H 03/26/25 21:14 100 H 03/26/25 21:14 91 L Vapotherm 03/26/25 21:05 101 H 26 H 117/66 91 L Vapotherm 03/26/25 21:00 Vapotherm 03/26/25 20:00 90 03/26/25 20:00 98.4 F 95 H 28 H 114/58 L 95 Vapotherm 03/26/25 19:45 95 H 95 Vapotherm 03/26/25 19:00 98 H 29 H 110/56 L 95 Vapotherm 03/26/25 18:50 Vapotherm 03/26/25 18:29 98 H 03/26/25 18:29 98 H 20 03/26/25 18:29 100 H 03/26/25 18:29 91 L Vapotherm 03/26/25 18:01 104 H 23 114/83 87 L Vapotherm 03/26/25 17:00 98 H 39 H 115/63 86 L Vapotherm 03/26/25 17:00 Vapotherm 03/26/25 16:00 104 H 89 L Vapotherm 03/26/25 16:00 96 H 03/26/25 16:00 99.0 F 91 H 37 H 109/81 L 87 L Vapotherm 03/26/25 16:00 90 L Vapotherm 03/26/25 15:00 87 26 H 106/60 L 88 L Nasal Cannula, Vapotherm 03/26/25 15:00 Vapotherm 03/26/25 14:13 87 03/26/25 14:13 87 03/26/25 14:00 96 H 29 H 108/59 L 85 L Vapotherm 03/26/25 13:00 97 H 33 H 111/58 L 85 L Vapotherm 03/26/25 13:00 Vapotherm 03/26/25 12:08 89 03/26/25 12:08 89 03/26/25 12:00 98.9 F 102 H 33 H 111/64 88 L Vapotherm 03/26/25 12:00 96 H 03/26/25 12:00 89 L Vapotherm O2 Flow Rate FiO2 03/27/25 11:00 30 70 03/27/25 10:58 30 03/27/25 10:30 30 70 03/27/25 10:00 30 70 03/27/25 09:31 30 70 03/27/25 09:05 30 70 03/27/25 09:00 30 70 03/27/25 09:00 30 03/27/25 08:47 30 70 03/27/25 08:00 03/27/25 08:00 30 40 03/27/25 07:00 30 80 03/27/25 06:57 30 03/27/25 06:00 30 80 03/27/25 05:00 30 80 03/27/25 05:00 30 03/27/25 04:00 03/27/25 04:00 30 80 03/27/25 04:00 30 60 03/27/25 03:00 30 03/27/25 03:00 30 80 03/27/25 02:00 35 90 03/27/25 01:33 03/27/25 01:33 03/27/25 01:33 35 90 03/27/25 01:00 30 70 03/27/25 01:00 30 03/27/25 00:00 03/27/25 00:00 30 70 03/27/25 00:00 35 90 03/26/25 23:00 35 90 03/26/25 23:00 30 03/26/25 22:00 35 90 03/26/25 21:14 03/26/25 21:14 03/26/25 21:14 35 90 03/26/25 21:05 30 70 03/26/25 21:00 30 03/26/25 20:00 03/26/25 20:00 35 90 03/26/25 19:45 30 70 03/26/25 19:00 30 70 03/26/25 18:50 30 03/26/25 18:29 03/26/25 18:29 03/26/25 18:29 03/26/25 18:29 30 40 03/26/25 18:01 30 40 03/26/25 17:00 30 40 03/26/25 17:00 30 03/26/25 16:00 30 40 03/26/25 16:00 03/26/25 16:00 30 40 03/26/25 16:00 30 40 03/26/25 15:00 30 40 03/26/25 15:00 30 03/26/25 14:13 03/26/25 14:13 03/26/25 14:00 30 40 03/26/25 13:00 30 40 03/26/25 13:00 30 03/26/25 12:08 03/26/25 12:08 03/26/25 12:00 30 40 03/26/25 12:00 03/26/25 12:00 30 40 Intake and Output 03/26/25 03/27/25 03/27/25 23:59 07:59 15:59 Intake Total 350 / 950 290 / 290 Output Total 1100 / 4025 550 / 1475 925 / 1475 Balance -750 / -3075 -550 / -1185 -635 / -1185 Intake: Intake, Oral Amount 300 / 700 290 / 290 Intake, Total IV Amount 50 / 250 Ceftriaxone 1 gm 1 gm In 0.9 % 50 / 100 Sodium Chloride 50 ml @ 100 mls /hr IV Q24H [facility] Rx#:[id number] Output: Output, Urine Amount 1100 / 4025 550 / 1475 925 / 1475 Other: Number of Unmeasured Voids 0 0 0 Number of Bowel Movements 1 Weight 63.639 kg Patient Weight 03/27/25 23:59 Weight 63.639 kg Laboratory Results - last 24 hr 03/26/25 14:28: Lactate 2.0 03/27/25 04:43: WBC 16.4 H, RBC 4.12 L, Hgb 13.3 L, Hct 39.0 L, MCV 94.7 H, MCH 32.3 H, MCHC 34.1, RDW 13.7, Plt Count 250, MPV 10.4, Neut % (Auto) 72.9, Lymph % (Auto) 9.6 L, [place] % (Auto) 4.3, Eos % (Auto) 2.7, Baso % (Auto) 0.9, Neut # (Auto) 11.9 H, Lymph # (Auto) 1.6, [place] # (Auto) 0.7, Eos # (Auto) 0.5 H, Baso # (Auto) 0.1, Sodium 138, Potassium 3.6, Chloride 102, Carbon Dioxide 27, Anion Gap 12.6, BUN 45 H, Creatinine 1.50 H, Estimated Creat Clear 30, Estimated GFR 44 L, Est GFR ( Amer) 53 L, Glucose 151 H, Calcium 8.0 L, Magnesium 1.7, Total Bilirubin 0.3, AST 68 H D, ALT 121 H, Alkaline Phosphatase 86, C-Reactive Protein 79.5 H, Total Protein 6.1 L, Albumin 3.1 L, Globulin 3.0, Albumin/Globulin Ratio 1.0 L, Procalcitonin 4.51 H I & O for Labs for Last 24 Hours: Intake & Output 03/24/25 03/25/25 03/26/25 03/27/25 23:59 23:59 23:59 23:59 Intake Total 1642 / 1642 1106 / 1106 950 / 950 290 / 290 Output Total 3465 / 3565 2055 / 2355 4025 / 4025 1475 / 1475 Balance -1823 / -1923 -949 / -1249 -3075 / -3075 -1185 / -1185 Weight 66.361 kg 65.544 kg 65.54 kg 63.639 kg Microbiology Reports for the Last 24 Hours: Microbiology 03/21/25 16:50 Blood Blood Culture - Final NO GROWTH AFTER 5 DAYS 03/21/25 16:56 Blood Blood Culture - Final Streptococcus pneumoniae
--- NOTE | 2025-03-27 12:13 | PC.NURSE ---
I spoke with Praneeth (son) that patient requested all family come to the bedside at 3 this afternoon for a care discussion about going forward with hospice.
[2025-03-27 12:16] LABS: RBC Morphology Normal; Total Cells Counted 100
--- NOTE | 2025-03-27 14:01 | PC.NURSE ---
Late Entry: 1135 SRNA entered pt room when Vapotherm was noted to be alarming. TISHA Carlin then came to nursing station and notified this RN that the pt was refusing to put the Vapotherm back on. SRNA stated that pt said He had no quality of life. he didn't care if his oxygen was low or not and he didnt want to wear that anymore and that he wanted to . This RN entered room and spoke with pt. he stated that he was done and didn't want to wear the vapo any more and he wanted to go home. Pt was convinced to put the vapo therm back in place until Md could be contacted to avoid the feeling of smothering. Dr Ferro came to bedside at approx 1150 to see pt. Hospice consult entered and contacted by Paul Frye. Family was contacted by galileo and pt to ask that they come to hospital for a meeting with Hospice at the patients requets.
[2025-03-27] MEDS: MORPHINE 4MG/ML SYRINGE 4 MG IV (15:35)
--- NOTE | 2025-03-27 15:51 | EXP.DC.SUM ---
General Admission date:: 03/21/25 Discharge date: 03/27/25 HPI HPI HPI: This is an 89-year-old male who has a past medical history significant fo for bladder cancer and COPD who presents with a chief complaint of shortness of breath. Due to patient's symptoms, he presented to the emergency room for evaluation. While in the emergency room, CT scan of the chest revealed no acute pulmonary emboli, advanced pulmonary emphysema with a large left lower lobe consolidative pneumonia and small right lower lobe consolidated pneumonia with the possibility of a cavitation, probable reactive mediastinal lymph nodes, and advanced three-vessel coronary artery calcification. Patient was hypotensive, hypoxemic, and tachycardic while in the emergency room. He was given crystalloids and his blood pressure did not improve; however, his hypoxemia persisted and required nonrebreather. As a result, hospital medicine was consulted for further management. Patient is normally not oxygen dependent. During my evaluation of the patient, patient states he has not felt well for approximately 1 week. He reports progressive shortness of air and not feeling well over the past 2 days. Over the past 2 days he started to experience a mild nonproductive cough. Patient reports that he did use his home nebulizer and it did not provide him any relief. Daughter at the bedside states that he was in contact with his son who was ill and he was at a birthday green party where a young lady had a sinus infection. Patient has known bladder cancer and has had his bladder removed with an ostomy placed approximately 11 years ago. He does report having some wheezing at home. Currently he is denying any chest pain, lightheadedness, dizziness, fever, chills, rigors, nausea, vomiting, or diarrhea. Additional pertinent vitals obtained include a white blood cell count of 13.2, neutrophils 91%, pH 7.30, bicarb of 18.7, carbon oxide of 18, BUN of 39, creatinine of 3, GFR of 20, blood glucose 115, total bilirubin 2.2, troponin 0.08, C-reactive protein 307.4, BNP of 7180, and procalcitonin of 36.4. Hospital Course Hospital Course Hospital Course: Buster Berman is a 89-year-old male who presented with shortness of breath and was admitted with acute hypoxic respiratory failure from community-acquired pneumonia with septic shock. Found to be bacteremic with Streptococcus pneumoniae. Initially responsive antibiotics with ability to wean off pressors in the first 48 hours. Unable to completely wean off oxygen. Had a setback overnight leading to increased oxygen requirement on Vapotherm. Patient had consistently expressed wishes that he was at peace if his condition did not improve. Given his setback, he has made the decision that he no longer wants to pursue curative treatment. Wants to transition to comfort care and discontinue all treatment with oxygen and antibiotics. States he is at peace with his underlying health and ready to . Does not want to continue treatment and family is at bedside and agrees with current plan. Hospice was consulted, agreed to admit patient. Will discharge to hospice today. Problems addressed as follows: #Acute hypoxic respiratory failure #Community-acquired pneumonia #Strep pneumonia bacteremia #Septic shock, resolved #Sepsis ? Presented with shortness of breath, CTA chest 03/21/2025 showing bibasilar pneumonia. Had been hypotensive, on pressors until 03/23. Unable to wean oxygen. Had setback last night with increased Vapotherm to 30 L and 70%. Still having increased work of breathing and significant dyspnea. White count remained elevated. -After much discussion with patient and family, decided to discontinue treatment and transition to comfort care. -Hospice consulted, patient admitted for septic shock and respiratory failure -Initiate morphine 4 mg IV every hour as needed for air hunger, dyspnea -Initiate Ativan 0.5 mg every 4 hours as needed for anxiety -Initiate glycopyrrolate 2 mg IV every 6 hours as needed for secretions #Suspected heart failure exacerbation ? Initial BNP 7180, ECHO showing preserved ejection fraction, has enlarged RV. Consistent with HFpEF. Volume overload likely contributing to hypoxic respiratory failure especially with pneumonia. Able to resume diuretics after improvement septic shock. Send negative urine output. Electrolytes stable. #MORE on CKD: Initial creatinine 3.0, improved to 1.4 by day of discharge and transition to hospice. Able to resume Lasix with improvement in kidney function. #CAD #NSTEMI type II #Severe coronary calcification ? Coronary calcification evidenced by CTA chest. Troponins peaked at 0.08, improved to 0.03. No chest pain. Likely NSTEMI type II in the setting of septic shock/strep bacteremia. Continued aspirin during admission, held statin due to sepsis. Will discontinue aspirin and discharge in line with goals of care. In light of patient's response to treatment. Today with his setback of increased oxygen requirement, he decided he no longer wanted to pursue curative measures. He is tired of trying to fight this infection and get better and just wants to focus on comfort. States he is ready to transition to comfort care and discontinue all curative treatments. Discussed having hospice come consult and assess patient. States he would be comfortable with that. Family at bedside and agreeable with plan. Stated that if patient discontinue supplemental oxygen and antibiotics, his infection will most likely progress and he will have worsening hypoxemic respiratory failure that most likely will lead to . He understands this risk and course and wants to discontinue current treatment. All treatment medications and supplemental oxygen discontinued at discharge. Will transition to comfort meds with morphine, Ativan, glycopyrrolate. Total time spent on discharge 44 minutes in counseling, documentation, chart review, and direct care with patient. Exam Data for Last 24 hours Vital signs and Labs for Last 24 Hours: Temp Pulse Resp BP Pulse Ox O2 Del Method O2 Flow Rate 97.6 F 96 H 17 113/59 L 86 L Vapotherm 30 03/27/25 08:00 03/27/25 14:01 03/27/25 14:01 03/27/25 14:01 03/27/25 14:01 03/27/25 14:01 03/27/25 14:01 FiO2 70 03/27/25 14:01 Laboratory Results - last 24 hr 03/27/25 04:43: WBC 16.4 H, RBC 4.12 L, Hgb 13.3 L, Hct 39.0 L, MCV 94.7 H, MCH 32.3 H, MCHC 34.1, RDW 13.7, Plt Count 250, MPV 10.4, Neut % (Auto) 72.9, Lymph % (Auto) 9.6 L, [place] % (Auto) 4.3, Eos % (Auto) 2.7, Baso % (Auto) 0.9, Neut # (Auto) 11.9 H, Lymph # (Auto) 1.6, [place] # (Auto) 0.7, Eos # (Auto) 0.5 H, Baso # (Auto) 0.1, Total Counted 100, Neutrophils % (Manual) 80 H, Lymphocytes % (Manual) 14, Monocytes % (Manual) 4, Eosinophils % (Manual) 2, Platelet Estimate Normal, RBC Morphology Normal, Sodium 138, Potassium 3.6, Chloride 102, Carbon Dioxide 27, Anion Gap 12.6, BUN 45 H, Creatinine 1.50 H, Estimated Creat Clear 30, Estimated GFR 44 L, Est GFR ( Amer) 53 L, Glucose 151 H, Calcium 8.0 L, Magnesium 1.7, Total Bilirubin 0.3, AST 68 H D, ALT 121 H, Alkaline Phosphatase 86, C-Reactive Protein 79.5 H, Total Protein 6.1 L, Albumin 3.1 L, Globulin 3.0, Albumin/Globulin Ratio 1.0 L, Procalcitonin 4.51 H I & O for Last 24 hours: Intake & Output 03/24/25 03/25/25 03/26/25 03/27/25 23:59 23:59 23:59 23:59 Intake Total 1642 / 1642 1106 / 1106 950 / 950 490 / 490 Output Total 3465 / 3565 2055 / 2355 4025 / 4025 1475 / 1475 Balance -1823 / -1923 -949 / -1249 -3075 / -3075 -985 / -985 Weight 66.361 kg 65.544 kg 65.54 kg 63.639 kg Microbiology Reports for the Last 24 Hours: Microbiology 03/26/25 11:30 Blood Blood Culture - Preliminary NO GROWTH AFTER 24 HOURS 03/26/25 11:36 Blood Blood Culture - Preliminary NO GROWTH AFTER 24 HOURS 03/21/25 16:50 Blood Blood Culture - Final NO GROWTH AFTER 5 DAYS Constitutional Constitutional: moderate distress, thin, chronically ill appearing and cooperative *Routine HEENT Exam Head: Present normocephalic Eye: Present PERRL *Routine Neck Exam Neck: Present supple *Routine Respiratory Exam Respiratory: Present accessory muscle use, prolonged expiratory phase, rhonchi, wheezes and crackles; Absent CTA bilaterally *Routine Cardiovascular Exam Cardiovascular: Present RRR, Normal S1 and Normal S2; Absent murmur, gallop or rubs *Routine Abdominal Exam Abdominal: Present soft; Absent tenderness *Routine Rectal Exam Patient deferred: visual exam *Routine Exam Patient deferred: penile exam *Routine Extremities Exam Extremities: Present pulses intact; Absent cyanosis or edema *Routine Skin Exam Skin: Present intact; Absent erythema or wounds *Routine Neurological Exam Neurological: Present alert, oriented X3 and moving all extremities; Absent altered mental status Routine Psychiatric Exam Psychiatric: Present cooperative Results Data Completed and Pending Labs on day of discharge: Labs from last 24 hours 03/27/25 04:43 WBC 16.4 H RBC 4.12 L Hgb 13.3 L Hct 39.0 L MCV 94.7 H MCH 32.3 H MCHC 34.1 RDW 13.7 Plt Count 250 MPV 10.4 Neut % (Auto) 72.9 Lymph % (Auto) 9.6 L [place] % (Auto) 4.3 Eos % (Auto) 2.7 Baso % (Auto) 0.9 Neut # (Auto) 11.9 H Lymph # (Auto) 1.6 [place] # (Auto) 0.7 Eos # (Auto) 0.5 H Baso # (Auto) 0.1 Total Counted 100 Neutrophils % (Manual) 80 H Lymphocytes % (Manual) 14 Monocytes % (Manual) 4 Eosinophils % (Manual) 2 Platelet Estimate Normal RBC Morphology Normal Sodium 138 Potassium 3.6 Chloride 102 Carbon Dioxide 27 Anion Gap 12.6 BUN 45 H Creatinine 1.50 H Estimated Creat Clear 30 Estimated GFR 44 L Est GFR ( Amer) 53 L Glucose 151 H Calcium 8.0 L Magnesium 1.7 Total Bilirubin 0.3 AST 68 H D ALT 121 H Alkaline Phosphatase 86 C-Reactive Protein 79.5 H Total Protein 6.1 L Albumin 3.1 L Globulin 3.0 Albumin/Globulin Ratio 1.0 L Procalcitonin 4.51 H Preliminary micro results at discharge 03/26/25 11:30 Blood Culture - Preliminary Blood NO GROWTH AFTER 24 HOURS 03/26/25 11:36 Blood Culture - Preliminary Blood NO GROWTH AFTER 24 HOURS DS: Diagnosis Discharge Diagnosis (1) CAD (coronary artery disease): Status: Acute Code(s): I25.10 - Atherosclerotic heart disease of [place] coronary artery without angina pectoris (2) Sepsis: Status: Acute Code(s): A41.9 - Sepsis, unspecified organism Qualifiers: Acute respiratory failure type: with hypoxia Sepsis acute organ dysfunction status: with acute organ dysfunction Sepsis type: sepsis due to unspecified organism Severe sepsis acute organ dysfunction type: acute respiratory failure Severe sepsis shock status: with septic shock Qualified Code(s): A41.9 - Sepsis, unspecified organism; R65.21 - Severe sepsis with septic shock; J96.01 - Acute respiratory failure with hypoxia (3) Septic shock: Status: Resolved Code(s): A41.9 - Sepsis, unspecified organism; R65.21 - Severe sepsis with septic shock (4) Non-ST elevation ID (NSTEMI): Status: Acute Code(s): I21.4 - Non-ST elevation (NSTEMI) myocardial infarction (5) MORE (acute kidney injury): Status: Acute Code(s): N17.9 - Acute kidney failure, unspecified (6) Multifocal pneumonia: Status: Acute Code(s): J18.8 - Other pneumonia, unspecified organism (7) Bacteremia due to Streptococcus pneumoniae: Status: Acute Code(s): R78.81 - Bacteremia; B95.3 - Streptococcus pneumoniae as the cause of diseases classified elsewhere (8) Acute hypoxic respiratory failure: Status: Acute Code(s): J96.01 - Acute respiratory failure with hypoxia Meds Home Medications and Allergies Home Medications ?Medication ?Instructions ?Recorded ?Confirmed ?Type No Known Home Medications 03/22/25 03/27/25 History New Prescriptions to Start Prescriptions: Allergies Allergy/AdvReac Type Severity Reaction Status Date / Time No Known Allergies Allergy Verified 03/21/25 22:30 Discharge Plan Disposition Patient Disposition: Hospice - Medical Facility Condition: Serious Discharge Order Discharge Orders: Discharge Order (Routine); Ordered 03/27/25 Ordered By: Herman Ferro Follow up Plan Prescriptions/Medication Reconciliation: No Action No Known Home Medications Problem Reconciliation Problems Reviewed?: Yes Patient Discharge Instructions ACTIVITY: Continue current activity DIET: continue same diet Patient Instructions: DI for Sepsis -- Adult, DI for Acute Kidney Injury, DI for Bacteremia-Adult, Stop Light Pneumonia, Stop Light COPD Print Language: Polish Providers Primary Care Provider: Bk Jarvis Admit Provider: Dane Valentino Attending Provider: Dane Valentino
== END 2025-03-27 16:00 | disposition hospice, inpatient (51) | DRG 871 ==
LOC: ER 16:41 → ICU 19:56 → 2ND 03-27 15:14
PROVIDERS: Internal Medicine Adolescent Medicine; Internal Medicine Pulmonary Disease; Nurse Practitioner Family; Physician Assistant; Admitting Provider Student in an Organized Health Care Education/Training Program; Emergency Provider Student in an Organized Health Care Education/Training Program; PCP Internal Medicine; Visit Provider Student in an Organized Health Care Education/Training Program
DX: A40.3 Sepsis due to Streptococcus pneumoniae (principal); I21.A1 Myocardial infarction type 2; I50.33 Acute on chronic diastolic (congestive) heart failure; J18.9 Pneumonia, unspecified organism; Z51.5 Encounter for palliative care; J96.01 Acute respiratory failure with hypoxia; R65.21 Severe sepsis with septic shock; N17.9 Acute kidney failure, unspecified; E87.20 Acidosis, unspecified; J44.1 Chronic obstructive pulmonary disease with (acute) exacerbation; J44.0 Chronic obstructive pulmonary disease with (acute) lower respiratory infection; I25.10 Atherosclerotic heart disease of native coronary artery without angina pectoris; N18.9 Chronic kidney disease, unspecified; R74.8 Abnormal levels of other serum enzymes; Z66 Do not resuscitate; F17.210 Nicotine dependence, cigarettes, uncomplicated; Z85.51 Personal history of malignant neoplasm of bladder; Z90.79 Acquired absence of other genital organ(s); Z79.899 Other long term (current) drug therapy
CPT/HCPCS: 0223U; 36415; 71045; 71275; 74177; 76770; 80053; 81001; 82043; 82247; 82248; 82570; 82803; 83605; 83735; 83880; 84145; 84156; 84484; 84540; 85007; 85025; 85610; 86140; 87040; 87070; 87081; 87086; 87186; 87205; 87641; 89220; 92610; 93005; 93306; 94640; 94667; 94668; 94760; 94761; 97162; 97166; 97530; 99285; J0692; J0696; J1644; J1650; J1938; J2270; J2405; J2543; J2919; J3373; J3375; J7030; J7050; Q9967

== ENCOUNTER 2025-03-27 16:09 | Inpatient (IN) | payer OTHER, MEDICARE, SELFPAY ==
--- NOTE | 2025-03-27 16:25 | P.HP_ITS ---
History of Present Illness *Admission Date: 03/27/25 *Reason for visit:: Septic shock, hospice care *History of present illness: Initially admitted with septic shock. Found to be bacteremic from Streptococcus pneumoniae. Was initially responding to treatment but had a setback with increa sed oxygen requirement and respiratory failure. Patient had been treated for at least 6 days with antibiotics and supplemental oxygen. As he was unable to transition below Vapotherm of 70%, he decided he no longer wanted to proceed with curative treatment and wanted to transition to hospice care and focus on being comfortable understanding that discontinuation of oxygen and antibiotics at high risk of . Hospice was consulted, agrees to admit patient for septic shock and his bacteremia. Family at bedside agrees with plan. [facility] Disclaimer: The information contained in this section may have been updated after the patient was seen, as this information can be updated by other users. Medical History Pneumonia Acute and chronic respiratory failure with hypoxia Dyspnea on exertion Smoking greater than 30 pack years History of primary bladder cancer COPD (chronic obstructive pulmonary disease) Surgical History History of prostatectomy Family History No significant family history Social History Smoking Status: Current every day smoker alcohol intake: never current occupational status: other Travel in the last 8 weeks?: None housing: house Other Medical History Have you received the Flu Vaccine for this season: No Have you received the Pneumonia Vaccine: No Review of Systems Review of Systems Review of systems (narrative): 14 point review of systems performed, pertinent positives and negatives as per HPI Meds Home Medications and Allergies Home Medications ?Medication ?Instructions ?Recorded ?Confirmed ?Type No Known Home Medications 03/22/2502/23 History New Prescriptions to Start Prescriptions: Allergies Allergy/AdvReac Type Severity Reaction Status Date / Time No Known Allergies Allergy Verified 03/21/25 22:30 Exam Constitutional Constitutional: moderate distress, thin and chronically ill appearing *Routine HEENT Exam Head: Present normocephalic and atraumatic Eye: Present EOMI and PERRL ENT: Present mucous membranes moist *Routine Neck Exam Neck: Present supple *Routine Respiratory Exam Respiratory: Present accessory muscle use, rhonchi, wheezes and crackles *Routine Cardiovascular Exam Cardiovascular: Present tachycardia *Routine Abdominal Exam Abdominal: Present soft and normoactive bowel sounds *Routine Rectal Exam Rectal:: deferred *Routine Genitalia Exam Genitalia:: deferred *Routine Extremities Exam Extremities: Absent edema Comments: Sarcopenia *Routine Skin Exam Skin: Present intact *Routine Neurological Exam Neurological: Present alert, oriented X3 and moving all extremities; Absent altered mental status Assessment and Plan *Assessment and plan (1) Septic shock: Status: Resolved Category: Medical Code(s): A41.9 - Sepsis, unspecified organism; R65.21 - Severe sepsis with septic shock (2) Bacteremia due to Streptococcus pneumoniae: Status: Acute Category: Medical Code(s): R78.81 - Bacteremia; B95.3 - Streptococcus pneumoniae as the cause of diseases classified elsewhere (3) CAD (coronary artery disease): Status: Acute Category: Medical Code(s): I25.10 - Atherosclerotic heart disease of [place] coronary artery without angina pectoris (4) Pneumonia: Status: Acute Category: Medical Code(s): J18.9 - Pneumonia, unspecified organism (5) Acute hypoxic respiratory failure: Status: Acute Category: Medical Code(s): J96.01 - Acute respiratory failure with hypoxia (6) Hospice care patient: Status: Acute Category: Medical Code(s): Z51.5 - Encounter for palliative care Plan Buster Berman is a 89-year-old male who presented with shortness of breath and was admitted with acute hypoxic respiratory failure from community-acquired pneumonia with septic shock. Found to be bacteremic with Streptococcus pneumoniae. As well found to have type II NSTEMI from stress of shock, bacteremia, pneumonia. Was having some response to treatment but had setback with increased oxygen requirement and worsening respiratory distress. In light of this, patient decided he did not want to pursue curative measures anymore and wanted to proceed with hospice care. He wanted to withdraw all care including antibiotics and supplemental oxygen and focus on just comfort. Family supportive of plan. Hospice consulted. Admitted for comfort measures. Problems addressed as follows: #Acute hypoxic respiratory failure #Community-acquired pneumonia #Strep pneumonia bacteremia #Septic shock, resolved #Sepsis # NSTEMI type II # MORE on CKD ? Presented with shortness of breath, CTA chest 03/21/2025 showing bibasilar pneumonia. Had been hypotensive, on pressors until 03/23. Unable to wean oxygen. Had setback last night with increased Vapotherm to 30 L and 70%. Still having increased work of breathing and significant dyspnea. White count remained elevated. -After much discussion with patient and family, decided to discontinue treatment and transition to comfort care. -Hospice consulted, patient admitted for septic shock and respiratory failure -Initiate morphine 4 mg IV every hour as needed for air hunger, dyspnea -Initiate Ativan 0.5 mg every 4 hours as needed for anxiety -Initiate glycopyrrolate 2 mg IV every 6 hours as needed for secretions DNR/DNI Comfort care Comfort feeds, regular diet
[2025-03-27] MEDS: MORPHINE 4MG/ML SYRINGE 4 MG IV ×7 (16:53→23:10)
--- NOTE | 2025-03-27 18:14 | PC.NURSE ---
pt resting in bed, family at his side, Q1 morphine to be given, hospice care
[2025-03-27 18:36] VITALS: PULSE 96; O2SAT 74
[2025-03-27 20:00] VITALS: BP 131/64; PULSE 95; RESP 20; TEMP 36.7; O2SAT 88
[2025-03-27] MEDS: diazePAM 10MG/2ML SYRINGE 2 MG IV (21:33)
[2025-03-28] MEDS: MORPHINE 4MG/ML SYRINGE 4 MG IV ×3 (00:09→02:20)
[2025-03-28] MEDS: diazePAM 10MG/2ML SYRINGE 2 MG IV (02:28)
--- NOTE | 2025-03-28 03:38 | EXP.DEATH.NO ---
Documented by User: Bettie Silver APRN 03/28/25 03:45 Pronouncement Note Date and Time of Date of : 03/28/25 Time of : 03:35 PCOD Preliminary cause of : Cardiac arrest Contributing Factors (1) Septic shock: (2) Bacteremia due to Streptococcus pneumoniae: (3) CAD (coronary artery disease): (4) Pneumonia: (5) Acute hypoxic respiratory failure: (6) Hospice care patient: (7) Streptococcus pneumoniae pneumonia: (8) Severe protein-calorie malnutrition: Additional Data Confirmation of : no pulse, no respirations, no heart sounds and pupils fixed and dilated Family: at bedside Attending physician: Herman Ferro MD Was code activated?: No Autopsy should be considered if:: Unknown or unanticipated medical complications Cause is not known with certainty on clinical grounds Would allay concerns of the public/family regarding Unexplained/unexpected apparently natural and not subject to a forensic medical jurisdiction DOA Within 24 hours of admission Sustained or apparently sustained injury while in the hospital Result of high risk, infectious and contagious disease Obstetric and pediatric arising from environmental or occupational hazard Unexplained/unexpected from dental, medical, or surgical diagnostic procedures and/or therapies Would disclose a known or suspected illness which also may have a bearing on survivors or recipients of transplanted organs Autopsy requested?: No Does not meet criteria Documented by User: Herman Ferro MD 03/29/25 10:06 Pronouncement Note PCOD Preliminary cause of : Respiratory arrest Contributing Factors (1) Septic shock: (2) Bacteremia due to Streptococcus pneumoniae: (3) CAD (coronary artery disease): (4) Pneumonia: (5) Acute hypoxic respiratory failure: (6) Hospice care patient: (7) Streptococcus pneumoniae pneumonia: (8) Severe protein-calorie malnutrition: Summary Additional details: Buster Berman is a 89-year-old male who presented with shortness of breath and was admitted with acute hypoxic respiratory failure from community-acquired pneumonia with septic shock. Found to be bacteremic with Streptococcus pneumoniae. As well found to have type II NSTEMI from stress of shock, bacteremia, pneumonia. Was having some response to treatment but had setback with increased oxygen requirement and worsening respiratory distress. In light of this, patient decided he did not want to pursue curative measures anymore and wanted to proceed with hospice care. He wanted to withdraw all care including antibiotics and supplemental oxygen and focus on just comfort. Family supportive of plan. Hospice consulted. Admitted for comfort measures. Problems addressed as follows: #Acute hypoxic respiratory failure #Community-acquired pneumonia #Strep pneumonia bacteremia #Septic shock, resolved #Sepsis # NSTEMI type II # MORE on CKD ? Presented with shortness of breath, CTA chest 03/21/2025 showing bibasilar pneumonia. Had been hypotensive, on pressors until 03/23. Unable to wean oxygen. Had setback last night with increased Vapotherm to 30 L and 70%. Still having increased work of breathing and significant dyspnea. White count remained elevated. -After much discussion with patient and family, decided to discontinue treatment and transition to comfort care. -Hospice consulted, patient admitted for septic shock and respiratory failure -Initiate morphine 4 mg IV every hour as needed for air hunger, dyspnea -Initiate Ativan 0.5 mg every 4 hours as needed for anxiety -Initiate glycopyrrolate 2 mg IV every 6 hours as needed for secretions -After transitioning to high space, patient's oxygen was decreased to 2 L. He ultimately did not want to wear the nasal cannula so it was removed at his request. Air hunger was treated with morphine every hour. Family at bedside. He passed due to respiratory arrest. He appears to be resting comfortably with family at bedside. I examined the patient and initiation of hospice care. Discussed case after patient's with nurse practitioner. Agree with exam findings and care plan as documented below.
--- NOTE | 2025-03-28 04:22 | PC.NURSE ---
Contacted [facility] at 04:19.
--- NOTE | 2025-03-28 05:16 | PC.NURSE ---
This nurse walked into patents room at 0327. Pt appeared to be . No lung or heart sounds noted. regulation supervisor and hospitalist notified. Provider Kita Silver arrived to bedside and announced pts time of at 0335. Jose called and spoke with Veronica Gonzalez at 0339. Edith with Hospice was notified at 0340. [facility] called at 0419. Post mortem care provided. Currently awaiting arrival of home.
== END 2025-03-28 07:15 | disposition expired | DRG 951 ==
PROVIDERS: Admitting Provider Internal Medicine Adolescent Medicine; PCP Internal Medicine; Visit Provider Internal Medicine Adolescent Medicine
DX: Z51.5 Encounter for palliative care (principal); A40.3 Sepsis due to Streptococcus pneumoniae; J13 Pneumonia due to Streptococcus pneumoniae; R65.21 Severe sepsis with septic shock; J96.01 Acute respiratory failure with hypoxia; E43 Unspecified severe protein-calorie malnutrition; I21.A1 Myocardial infarction type 2; N17.9 Acute kidney failure, unspecified; I25.10 Atherosclerotic heart disease of native coronary artery without angina pectoris; N18.9 Chronic kidney disease, unspecified; F17.200 Nicotine dependence, unspecified, uncomplicated; Z66 Do not resuscitate
CPT/HCPCS: J2270; J3360